=== PATIENT | female | born 1985 | race Caucasian/White ===

== ENCOUNTER 2019-12-25 13:17 | Emergency (ER) | payer OTHER, SELFPAY ==
[2019-12-25 14:03] VITALS: BP 131/84; PULSE 92; RESP 20; TEMP 38.3; O2SAT 96
--- NOTE | 2019-12-25 15:06 | ED.URI ---
HPI - URI/Sore Throat General Chief Complaint: Upper Respiratory Infection Stated Complaint: head and body aches fever cough Time Seen by Provider: 12/25/19 14:59 Source: patient and RN notes reviewed Mode of arrival: ambulatory Limitations: no limitations History of Present Illness HPI Narrative: Patient presents today with a 2-day history of subjective fever, headache, body aches, cough, congestion, rhinorrhea. Denies shortness of breath. No history of asthma or COPD. She has been taking ibuprofen with some relief. She does not smoke or vape. She did not receive a flu vaccine this season. MD elicited complaint: fever, cough and nasal congestion Related Data Home Medications Medication Instructions Recorded Confirmed No Home Medications 12/25/19 12/25/19 Allergies Allergy/AdvReac Type Severity Reaction Status Date / Time poison jennifer extract Allergy Unknown Rash Verified 12/25/19 14:44 Review of Systems Review of Systems: Narrative: CONSTITUTIONAL: Denies chills, or sweats.+Body aches, fever EYES: Denies visual changes, redness, or discharge. ENT: Denies sore throat, or otalgia.+Congestion, rhinorrhea CARDIOVASCULAR: Denies chest pain, palpitations, or edema. RESPIRATORY: Denies dyspnea.+Cough GASTROINTESTINAL: Denies abdominal pain, nausea, vomiting, or diarrhea. GENITOURINARY: Denies dysuria or hematuria. SKIN: Denies rash, itching, or wounds. MUSCULOSKELETAL: Denies back pain, joint pain, or myalgia. NEUROLOGIC: Denies numbness, tingling, or weakness.+Headache PSYCH: Denies depression or anxiety. PMFSH Comments At time of signature, I have reviewed and agree with nursing past medical, surgical, social and family history unless otherwise noted. Please see nursing chart for further information. There is no relevant family history pertinent to the presenting complaint Exam Narrative: Exam Narrative: GENERAL: Mildly ill-appearing, well-nourished, and in no acute distress. HEAD: Normocephalic, atraumatic. EYES: EOMI. No redness or drainage. Conjunctivae normal. ENT: Mucous membranes pink and moist. Nares Congested. No rhinorrhea. TMs normal bilaterally. Throat Mildly erythematous without edema or exudate. Uvula midline. NECK: Normal AROM. Supple. No lymphadenopathy. CHEST: No respiratory distress. Clear to auscultation. HEART: Regular rate and rhythm. No murmur appreciated. Normal peripheral pulses. EXTREMITIES: Normal range of motion. No edema. SKIN: Warm, dry, no rash. NEURO: No focal deficits. Alert and oriented x3. Gait steady. PSYCH: Normal affect. No signs of depression or anxiety. Course Vital Signs Vital signs: Vital Signs Temperature 101.0 F H 12/25/19 14:03 Pulse Rate 92 12/25/19 14:03 Respiratory Rate 20 12/25/19 14:03 Blood Pressure 131/84 12/25/19 14:03 Pulse Oximetry 96 12/25/19 14:03 Temperature 101.0 F H 12/25/19 14:03 Pulse Rate 92 12/25/19 14:03 Respiratory Rate 20 12/25/19 14:03 Blood Pressure 131/84 12/25/19 14:03 Pulse Oximetry 96 12/25/19 14:03 Reviewed. Pt has been instructed to follow up with her PCP regarding her elevated blood pressure today. MDM - URI/Sore Throat Differential Diagnosis Differential diagnosis: Likely upper respiratory infection, viral infection, bronchitis, influenza, pharyngitis and other (Strep throat) Lab Data Attestation: I reviewed the patient's lab results. Labs: Influenza A Screen Negative Reference Range: Negative Influenza B Screen Positive Reference Range: Negative Strep Screen Presumptive Negative *(Reference Range: Negative)* Urine Glucose Negative Reference Range: Negative Urine Bilirubin Negative Reference Range: Negative Urine Ketone Negative Reference Range: Negative Urine Specific [place] 1.020 Reference Range:1.001-1.035
== END 2019-12-25 15:15 | disposition home or self-care (01) ==
PROVIDERS: Emergency Provider Nurse Practitioner
DX: J10.1 Influenza due to other identified influenza virus with other respiratory manifestations (principal)
CPT/HCPCS: 81003; 87081; 87804; 87880; 99213; G0463

== ENCOUNTER 2021-09-29 10:38 | Emergency (ER) | payer OTHER, SELFPAY ==
--- NOTE | 2021-09-29 10:41 | ED.URI ---
HPI - URI/Sore Throat General Chief Complaint: Upper Respiratory Infection Stated Complaint: Jaw, and neck pain, sore throat. Time Seen by Provider: 09/29/21 10:42 Source: patient and RN notes reviewed History of Present Illness HPI Narrative: Patient is a 36-year-old female who presents the urgent care with complaints of bilateral neck and jaw pain and a sore throat that started a couple days ago. Patient states that the sore throat feels like it is swollen and scratchy . Patient denies of any fevers, nausea, vomiting. Denies of any cough or shortness of breath. Denies of any chest pain or upper back pain. Denies of any heart history. Patient has had the Covid vaccine and denies of any strep or Covid exposures. No other acute complaints. No acute distress noted. Patient aware of the plan of care. Some parts of this dictation were generated by voice recognition software and may contain typographical and/or grammatical inaccuracies. Related Data Home Medications Medication Instructions Recorded Confirmed ergocalciferol (vitamin D2) 1,250 mcg PO WEEKLY 09/29/21 09/29/21 Allergies Allergy/AdvReac Type Severity Reaction Status Date / Time poison jennifer extract Allergy Unknown Rash Verified 09/29/21 11:03 Review of Systems Review of Systems: CONSTITUTIONAL: Denies fever, chills, or sweats. EYES: Denies visual changes, redness, or discharge. ENT: Denies rhinorrhea, congestion, otalgia. Reports of sore throat. Reports of jaw neck pain CARDIOVASCULAR: Denies chest pain, palpitations, or edema. RESPIRATORY: Denies cough or dyspnea. GASTROINTESTINAL: Denies abdominal pain, nausea, vomiting, or diarrhea. GENITOURINARY: Denies dysuria or hematuria. SKIN: Denies rash or itching. MUSCULOSKELETAL: Denies back pain, joint pain, or myalgia. NEUROLOGIC: Denies headache, numbness, or weakness. All other systems reviewed are negative, except as documented in HPI. PMFSH Comments At the time of my signature, I reviewed and agree with the nursing past medical, surgical, social, and family history. There is no relevant family history pertinent to the patient complaint. Exam Narrative: GENERAL: This is a well-nourished, well-developed patient, in no apparent distress. HEAD: normocephalic, atraumatic. EYES: PERRL. Sclera clear/white. Vision is grossly intact. EARS: External ears normal, auditory canals clear and without drainage, TMs normal without perforation. Hearing grossly intact. NOSE: External nose normal with no obvious nasal discharge, nares without redness, no rhinorrhea. THROAT: Mucous membranes moist, posterior pharynx clear. Mild to moderate postnasal drainage NECK: Neck supple, non-tender without lymphadenopathy CARDIOVASCULAR: Regular rate and rhythm without murmurs, gallops, or rubs. RESPIRATORY: Clear to auscultation. Breath sounds equal bilaterally. No wheezes, rales, or rhonchi. SKIN: warm, intact with no suspicious lesions or rash, good texture and turgor. NEURO: awake, alert, and oriented to person, place and time. There were no obvious focal neurologic abnormalities. EXTREMITIES: No clubbing, cyanosis, or edema. Course Vital Signs Vital signs: Vital Signs Temperature 99.4 F 09/29/21 10:48 Pulse Rate 66 09/29/21 10:48 Respiratory Rate 20 09/29/21 10:48 Blood Pressure 135/82 09/29/21 10:48 Pulse Oximetry 99 09/29/21 10:48 Temperature 99.4 F 09/29/21 10:48 Pulse Rate 66 09/29/21 10:48 Respiratory Rate 20 09/29/21 10:48 Blood Pressure 135/82 09/29/21 10:48 Pulse Oximetry 99 09/29/21 10:48 Reviewed MDM - URI/Sore Throat MDM Narrative Medical decision making narrative: Reviewed lab results with the patient. She is aware that strep swab was negative. Educated patient on culture and we will call within 72 hours if culture is positive antibiotics necessary. Advised the patient to complete the steroid regimen as prescribed. Use Tylenol/ibuprofen as needed. Symptoms could be relat
[2021-09-29 10:48] VITALS: BP 135/82; PULSE 66; RESP 20; TEMP 37.4; O2SAT 99
== END 2021-09-29 11:15 | disposition home or self-care (01) ==
PROVIDERS: Emergency Provider Nurse Practitioner Family
DX: J02.9 Acute pharyngitis, unspecified (principal)
CPT/HCPCS: 87081; 87880; 99213; G0463

== ENCOUNTER 2022-01-28 16:27 | Emergency (ER) | payer OTHER, SELFPAY ==
--- NOTE | 2022-01-28 16:30 | ED.URI ---
HPI - URI/Sore Throat General Chief Complaint: Upper Respiratory Infection Stated Complaint: Sore Throat Time Seen by Provider: 01/28/22 16:30 Source: patient and RN notes reviewed History of Present Illness HPI Narrative: Patient is a 36-year-old female who presents the urgent care with complaints of sore throat, chills, body aches and runny nose. Patient denies of any ill contacts. Denies of fever, chills, nausea, vomiting. Patient has been taking a daily Claritin for tinnitus. Otherwise has not taken any new medications for symptoms that started last night. No other acute complaints. No acute distress noted. Patient aware of the plan of care. Some parts of this dictation were generated by voice recognition software and may contain typographical and/or grammatical inaccuracies. Related Data Home Medications Medication Instructions Recorded Confirmed pantoprazole 40 mg PO DAILY 01/28/22 01/28/22 Allergies Allergy/AdvReac Type Severity Reaction Status Date / Time poison jennifer extract Allergy Unknown Rash Verified 09/29/21 11:03 Review of Systems Review of Systems: CONSTITUTIONAL: Denies fever,. Reports of chills EYES: Denies visual changes, redness, or discharge. ENT: Reports of rhinorrhea and sore throat. Reports of chronic tinnitus for months CARDIOVASCULAR: Denies chest pain, palpitations, or edema. RESPIRATORY: Denies cough or dyspnea. GASTROINTESTINAL: Denies abdominal pain, nausea, vomiting, or diarrhea. GENITOURINARY: Denies dysuria or hematuria. SKIN: Denies rash or itching. MUSCULOSKELETAL: Denies back pain, joint pain. Reports body aches NEUROLOGIC: Denies headache, numbness, or weakness. All other systems reviewed are negative, except as documented in HPI. PMFSH Comments At the time of my signature, I reviewed and agree with the nursing past medical, surgical, social, and family history. There is no relevant family history pertinent to the patient complaint. Exam Narrative: GENERAL: This is a well-nourished, well-developed patient, in no apparent distress. HEAD: normocephalic, atraumatic. EYES: PERRL. Sclera clear/white. Vision is grossly intact. EARS: External ears normal, auditory canals clear and without drainage, bilateral eustachian tube dysfunction with mild fluid. TMs normal without perforation. Hearing grossly intact. NOSE: External nose normal with no obvious nasal discharge, nares without redness, no rhinorrhea. THROAT: Mucous membranes moist, mild erythema noted posterior pharynx moderate postnasal drainage and exudate noted to the right NECK: Neck supple, non-tender without lymphadenopathy CARDIOVASCULAR: Regular rate and rhythm without murmurs, gallops, or rubs. RESPIRATORY: Clear to auscultation. Breath sounds equal bilaterally. No wheezes, rales, or rhonchi. SKIN: warm, intact with no suspicious lesions or rash, good texture and turgor. NEURO: awake, alert, and oriented to person, place and time. There were no obvious focal neurologic abnormalities. EXTREMITIES: No clubbing, cyanosis, or edema. Course Course Level of Care: Express Care Visit Vital Signs Vital signs: Vital Signs Temperature 100.2 F H 01/28/22 16:32 Pulse Rate 68 01/28/22 16:32 Respiratory Rate 16 01/28/22 16:32 Blood Pressure 137/77 01/28/22 16:32 Pulse Oximetry 100 01/28/22 16:32 Temperature 100.2 F H 01/28/22 16:32 Pulse Rate 68 01/28/22 16:32 Respiratory Rate 16 01/28/22 16:32 Blood Pressure 137/77 01/28/22 16:32 Pulse Oximetry 100 01/28/22 16:32 Reviewed MDM - URI/Sore Throat MDM Narrative Medical decision making narrative: Reviewed lab results with the patient. She is aware that flu and strep swabs are both negative. Educated patient on strep culture we will call within 72 hours if culture is positive and antibiotics are necessary. Advised the patient to complete the oral steroid regimen as prescribed. Be sure to eat and drink with medication. Increase your water intake a
[2022-01-28 16:32] VITALS: BP 137/77; PULSE 68; RESP 16; TEMP 37.9; O2SAT 100
== END 2022-01-28 17:02 | disposition home or self-care (01) ==
PROVIDERS: Emergency Provider Nurse Practitioner Family; PCP Family Medicine
DX: H93.13 Tinnitus, bilateral (principal); H69.83 Other specified disorders of Eustachian tube, bilateral
CPT/HCPCS: 87081; 87804; 87880; 99213; G0463

== ENCOUNTER 2023-07-26 15:01 | Emergency (ER) | payer OTHER, SELFPAY ==
--- NOTE | ~2023-07-26 | CT_ITS ---
EXAMINATION: CT brain wo con DATE: 07/26/2023 18:14 INDICATION: Headache. TECHNIQUE: Computed tomography (CT) of the head was performed without intravenous contrast. The mA wa s adjusted according to patient size. Iterative reconstruction technique was employed. The dose-lengt h product was 832.33 mGy-cm. COMPARISON: None FINDINGS: There is no intracranial hemorrhage, acute infarction, or abnormal intracranial mass lesion . The ventricles are normal in size. There is mild mucosal thickening in the ethmoid sinuses. The orb its are normal. The mastoid air cells are normal. IMPRESSION: 1. Normal brain. Reviewed, dictated and finalized at location E. IMPRESSION: 1. Normal brain.
--- NOTE | ~2023-07-26 | XR_ITS ---
EXAMINATION: XR chest 2V DATE: 07/26/2023 18:19 INDICATION: Dizziness. Shortness of breath. TECHNIQUE: Frontal and lateral views of the chest were obtained. COMPARISON: None. FINDINGS: There is no pneumonia, pleural effusion, or pneumothorax. The heart size is normal. IMPRESSION: 1. No acute cardiopulmonary disease. Reviewed, dictated and finalized at location E.
[2023-07-26 15:32] VITALS: BP 132/84; PULSE 83; RESP 20; TEMP 36.6; O2SAT 98
--- NOTE | 2023-07-26 18:00 | ECG_ITS ---
Measurements Intervals [place] Rate: 70 P: 52 NM: 170 QRS: 47 QRSD: 108 T: 39 QT: 388 QTc: 419 Interpretive Statements SINUS RHYTHM DELAYED PRECORDIAL R/S TRANSITION BORDERLINE ECG NO PREVIOUS ECG AVAILABLE FOR COMPARISON Electronically Signed On 07-27-2023 6:23:46 CDT by Min Tapia D.O.
--- NOTE | 2023-07-26 18:02 | ED.HA ---
HPI - Headache General Chief Complaint: Headache Stated Complaint: dizziness and headache 07/12 Time Seen by Provider: 07/26/23 17:27 Source: patient Mode of arrival: ambulatory Limitations: no limitations History of Present Illness HPI Narrative: This is a 38 year old female that presents to the ER for a headache. Ongoing over the last couple of weeks. Reports the pain is pounding in nature. She has been taking Ibuprofen and Tylenol with some relief. Reports some associated lightheadedness/dizziness. She was started on Augmentin for a possible sinus infection with continued headaches. Denies fever, vision changes, vomiting, numbness or weakness. Related Data Home Medications Medication Instructions Recorded Confirmed pantoprazole 40 mg tablet,delayed 40 mg PO DAILY 01/28/22 01/28/22 release amoxicillin 875 mg-potassium tablet 07/26/23 clavulanate 125 mg tablet ergocalciferol (vitamin D2) 1,250 07/26/23 07/26/23 mcg (50,000 unit) capsule lisinopril 10 mg tablet mg 07/26/23 Allergies Allergy/AdvReac Type Severity Reaction Status Date / Time poison jennifer extract Allergy Unknown Rash Verified 07/26/23 18:52 Review of Systems Review of Systems: CONSTITUTIONAL: Denies fever EYES: Denies visual changes CARDIOVASCULAR: Denies chest pain, palpitations RESPIRATORY: Denies dyspnea. GASTROINTESTINAL: Denies vomiting NEUROLOGIC: Reports headache. Denies numbness, or weakness. All systems reviewed & are unremarkable except as noted in HPI and below PMFSH Past Medical History Medical History (Updated 07/26/23 @ 19:52 by Angelina Carrizales PA-C) No active medical problems Surgical History Surgical History (Updated 07/26/23 @ 18:07 by Angelina Carrizales PA-C) History of cholecystectomy Social History Social History (Updated 07/26/23 @ 18:07 by Angelina Carrizales PA-C) Substance use: never Exam Narrative: GENERAL: Well-appearing, well-nourished, and in no acute distress. HEAD: Normocephalic, atraumatic. EYES: PERRLA and EOMI. ENT: Nares clear, no rhinorrhea or epistaxis. Mucous membranes moist. Oropharynx without tonsillar hypertrophy exudate or other lesions. Bilateral TMs pearly pat non-bulging NECK: Supple. No adenopathy or masses. Normal ROM CHEST: Clear to auscultation. No respiratory distress. No wheezes rales or rhonchi HEART: Regular rate and rhythm. No murmur heard. Normal peripheral pulses. ABDOMEN: Soft, nontender, nondistended, normal active bowel sounds. EXTREMITIES: Normal range of motion. No edema. Strength equal in bilateral upper and lower extremities (5/5) SKIN: Warm, dry, no rash. NEURO: No focal deficits. Alert and oriented x3. Cranial nerves II through XII grossly intact. Normal gait PSYCH: Normal mood and affect Course Course Emergency Course: Patient was updated on work-up. Agrees with plan of care. Reports relief with IV fluids and Toradol Vital Signs Vital signs: Vital Signs Temperature 97.8 F 07/26/23 15:32 Pulse Rate 83 07/26/23 15:32 Respiratory Rate 20 07/26/23 15:32 Blood Pressure 132/84 07/26/23 15:32 Pulse Oximetry 98 07/26/23 15:32 Oxygen Delivery Room Air 07/26/23 15:32 Temperature 98.2 F 07/26/23 19:02 Pulse Rate 67 07/26/23 19:36 Respiratory Rate 16 07/26/23 19:36 Blood Pressure 116/69 07/26/23 19:36 Pulse Oximetry 97 07/26/23 19:36 Oxygen Delivery Room Air 07/26/23 15:32 MDM - Headache MDM Narrative Medical decision making narrative: Patient presents to the emergency department for a headache that has been intermittent over the last couple of weeks. Reporting some associated dizziness/lightheadedness. She is afebrile and nontoxic-appearing. Her vitals are stable. CBC with mild leukocytosis to 11.3. Patient has recently been on a steroid. Metabolic panel without concerning findings. UA without evidence of infection. test is negative. Chest x-ray without acute cardiopulmonary normality.
[2023-07-26 18:22] LABS: Basophils Percent Auto 0.2 % (0.2-1.2); Eosinophils Absolute Auto 0.1 K/mm3 (0-0.3); Hematocrit 41.2 % (37.0-47.0); Immature Granulocyte Absolute 0.02 K/mm3 (0.00-0.031); Immature Granulocyte Percent A 0.2 % (0-0.5); Lymphocytes Absolute Auto 3.49 K/mm3 (0.9-3.2); Lymphocytes Percent Auto 30.9 % (18.3-44.2); Mean Corpuscular Hemoglobin 31.3 pg (26-34); Monocytes Absolute Auto 0.5 K/mm3 (0.1-0.6); Neutrophils Absolute Auto 7.2 K/mm3 (1.3-6.7); Neutrophils Percent Auto 63.7 % (45.5-73.1); Platelet Count Result 330 k/mm3 (150-375); Red Blood Count 4.48 M/mm3 (4.2-5.4); Red Cell Distribution Width 13.5 % (11.5-14.5); White Blood Count 11.3 K/mm3 (4.5-10.0)
[2023-07-26 18:31] LABS: Appearance Urine Clear (Clear); Bilirubin Urine Negative (Negative); Blood Urine Negative (Negative); Color Urine Yellow (Yellow); Glucose Urine UA Negative (Negative); Ketones Urine Negative (Negative); Leukocyte Esterase Ur Negative LEU/UL (Negative); Nitrate Urine Negative (Negative); Protein Urine Negative (Negative); Specific Grav Ur 1.022 (1.001-1.035); Urobilinogen Urine 0.2 mg/dL (<2.0); pH Urine 6.5 (5.0-9.0)
[2023-07-26 18:44] LABS: Alanine Aminotransferase 35 U/L (6-35); Alkaline Phosphatase 48 U/L (38-126); Anion Gap 8 mmol/L (8-16); Aspartate Amino Transferase 35 U/L (14-36); Bilirubin,Total 0.4 mg/dL (0.2-1.3); Blood Urea Nitrogen 18 mg/dL (7-17); Carbon Dioxide 25 mmol/L (22-30); Chloride 102 mmol/L (98-107); Estimated CRCL calculation 140 ml/min; Estimated Glomerular Filt Rate > 60; Glucose 95 mg/dL (65-110); Potassium 4.2 mmol/L (3.4-5.0); Sodium 135 mmol/L (137-145)
[2023-07-26 18:51] LABS: Add Urine Microscopic? NO
[2023-07-26] MEDS: SODIUM CHLORIDE 0.9% IV 1,000 ML 999 ML IV CONT (18:54)
[2023-07-26] MEDS: KETOROLAC 15 MG/ML VIAL (*BKC) IV PUSH (18:55)
[2023-07-26 19:02] VITALS: BP 123/82; PULSE 65; RESP 14; TEMP 36.8; O2SAT 100
[2023-07-26 19:33] LABS: Pregnancy On Board Control Positive; Urine Pregnancy Test Negative
[2023-07-26 19:36] VITALS: BP 116/69; PULSE 67; RESP 16; O2SAT 97
[2023-07-26 20:27] VITALS: BP 130/72; PULSE 68; RESP 18; O2SAT 99
== END 2023-07-26 20:28 | disposition home or self-care (01) ==
PROVIDERS: Emergency Provider Physician Assistant; PCP Family Medicine
DX: R51.9 Headache, unspecified (principal); Z90.49 Acquired absence of other specified parts of digestive tract
CPT/HCPCS: 36415; 70450; 71046; 80053; 81003; 81025; 85025; 93005; 96361; 96374; 99284; J1885; J7030

== ENCOUNTER 2023-07-28 13:35 | Emergency (ER) | payer OTHER, SELFPAY ==
[2023-07-28] VITALS (16 sets, daily range): BP systolic 69–136; BP diastolic 56–95; PULSE 53–83; RESP 13–21; TEMP 36.6; O2SAT 96–99
--- NOTE | 2023-07-28 13:53 | ECG_ITS ---
Measurements Intervals [place] Rate: 64 P: 43 FL: 151 QRS: 39 QRSD: 99 T: 42 QT: 396 QTc: 410 Interpretive Statements SINUS RHYTHM NORMAL ECG COMPARED TO ECG 07/26/2023 18:44:22 NO SIGNIFICANT CHANGES Electronically Signed On 07-28-2023 13:58:09 CDT by Min Tapia D.O.
--- NOTE | 2023-07-28 14:39 | ED.GENADULT ---
HPI - General Adult General Chief complaint: Headache Stated complaint: htn/pearce Time Seen by Provider: 07/28/23 13:50 History of Present Illness HPI narrative: Yanira Carroll is a 38 y/o female who presents with reports of having this ongoing headache since July 12, she states that she also recently was diagnosed with htn and she started her medication for htn on Jul 20. She has been in and out of ERs for this headache and she states she typically recieves the migraine cocktail and it makes the headache go away but then it returns the following day, she states she has had labs/ CTs without any evidence of anything being wrong. She states that her headache has been most of the day today she took 200mg of Ibuprofen this morning and now her headache is somewhat mild not severe but constant to her head and describes it as a tight feeling to her head. She also states that she had an episode of sweating earlier today and she didn't know where that came from. She also adds that she has a hx of hld and is getting a diagnostic cardiac cath at the end of the month - she says that she was found to have some thickening to her heart on an echo back in february when she had an infection and was admitted. SHe states she had a little bit of chest pain earlier but none right now. Denies shortnes of breath/ abdominal pain/ nausea/vomiting. She also adds that she has been on augmentin since July 20 for sinusitis Related Data Home Medications Medication Instructions Recorded Confirmed pantoprazole 40 mg tablet,delayed 40 mg PO DAILY 01/28/22 01/28/22 release amoxicillin 875 mg-potassium tablet 07/26/23 clavulanate 125 mg tablet ergocalciferol (vitamin D2) 1,250 07/26/23 07/26/23 mcg (50,000 unit) capsule lisinopril 10 mg tablet mg 07/26/23 Allergies Allergy/AdvReac Type Severity Reaction Status Date / Time poison jennifer extract Allergy Unknown Rash Verified 07/26/23 18:52 Review of Systems Review of Systems: CONSTITUTIONAL: Denies fever, chills, or sweats. EYES: Denies visual changes, redness, or discharge. ENT: Denies rhinorrhea, congestion, sore throat, or otalgia. CARDIOVASCULAR: Denies chest pain, palpitations, or edema. RESPIRATORY: Denies cough or dyspnea. GASTROINTESTINAL: Denies abdominal pain, nausea, vomiting, or diarrhea. GENITOURINARY: Denies dysuria or hematuria. SKIN: Denies rash or itching. MUSCULOSKELETAL: Denies back pain, joint pain, or myalgia. NEUROLOGIC: reports mild tension/tight headache, Denies numbness, dizziness, or weakness. PSYCHIATRIC: Denies anxiety or depression. [facility] Past Medical History Medical History No active medical problems Surgical History Surgical History History of cholecystectomy Social History Social History Substance use: never Exam Narrative: GENERAL: Well-appearing, well-nourished, and in no acute distress. HEAD: Normocephalic, atraumatic. EYES: PERRLA and EOMI no nystagmus noted ENT: Nares clear, no rhinorrhea or epistaxis. Mucous membranes moist. Oropharynx without tonsillar hypertrophy exudate or other lesions. Bilateral TMs pearly pat nonbulging NECK: Supple. No adenopathy or masses. No carotid bruits or JVD CHEST: Clear to auscultation. No respiratory distress. No wheezes rales or rhonchi HEART: Regular rate and rhythm. No murmur heard. Normal peripheral pulses. ABDOMEN: Soft, nontender, nondistended, normal active bowel sounds. EXTREMITIES: Normal range of motion. No edema. SKIN: Warm, dry, no rash. NEURO: No focal deficits. Alert and oriented x3. PSYCH: Normal mood and affect. Course Vital Signs Vital signs: Vital Signs Temperature 36.6 C 07/28/23 13:36 Pulse Rate 65 07/28/23 13:36 Respiratory Rate 16 07/28/23 13:36 Blood Pressure 136/95 H 07/28/23 13:36 Pulse
[2023-07-28] MEDS: PROCHLORPERAZINE EDISYLATE 10 MG/2 ML VIAL IV PUSH (14:51)
[2023-07-28] MEDS: KETOROLAC 30 MG/ML VIAL (*BKC) IV PUSH (14:51)
[2023-07-28] MEDS: SODIUM CHLORIDE 0.9% IV 1,000 ML 999 ML IV CONT (14:52)
[2023-07-28] MEDS: diphenhydrAMINE HCl INJ 50 MG/ML VIAL 25 MG IV PUSH (14:52)
[2023-07-28 15:15] LABS: Basophils Percent Auto 0.2 % (0.2-1.2); Eosinophils Absolute Auto 0.1 K/mm3 (0-0.3); Eosinophils Percent Auto 0.4 % (0-4.4); Hematocrit 37.3 % (37.0-47.0); Hemoglobin 12.1 g/dL (12.0-15.0); Immature Granulocyte Absolute 0.04 K/mm3 (0.00-0.031); Immature Granulocyte Percent A 0.3 % (0-0.5); Lymphocytes Absolute Auto 2.29 K/mm3 (0.9-3.2); Lymphocytes Percent Auto 19.7 % (18.3-44.2); Mean Corpuscular HGB Conc 32.4 g/dl (32-36); Mean Corpuscular Volume 92.6 fl (80-100); Mean Platelet Volume 9.3 fl (7.4-10.4); Monocytes Absolute Auto 0.5 K/mm3 (0.1-0.6); Monocytes Percent Auto 4.4 % (2.6-8.5); Neutrophils Absolute Auto 8.7 K/mm3 (1.3-6.7); Platelet Count Result 244 k/mm3 (150-375); Red Blood Count 4.03 M/mm3 (4.2-5.4); Red Cell Distribution Width 13.3 % (11.5-14.5); White Blood Count 11.7 K/mm3 (4.5-10.0)
[2023-07-28 15:27] LABS: Anion Gap 4 mmol/L (8-16); Blood Urea Nitrogen 12 mg/dL (7-17); Calcium 8.5 mg/dL (8.4-10.2); Carbon Dioxide 26 mmol/L (22-30); Chloride 103 mmol/L (98-107); Estimated Glomerular Filt Rate > 60; Glucose 89 mg/dL (65-110); Potassium 3.7 mmol/L (3.4-5.0); Sodium 133 mmol/L (137-145)
[2023-07-28 15:38] LABS: Troponin I < 0.012 ng/mL (0.000-0.034)
== END 2023-07-28 18:08 | disposition home or self-care (01) ==
PROVIDERS: Emergency Provider Nurse Practitioner Family
DX: G44.201 Tension-type headache, unspecified, intractable (principal); I10 Essential (primary) hypertension; Z90.49 Acquired absence of other specified parts of digestive tract
CPT/HCPCS: 36415; 80048; 84484; 85025; 93005; 96361; 96374; 96375; 99284; J0780; J1100; J1200; J1885; J7030

== ENCOUNTER 2023-11-06 11:05 | Emergency (ER) | payer OTHER, SELFPAY ==
[2023-11-06 11:15] VITALS: BP 124/76; PULSE 66; RESP 16; TEMP 36.3; O2SAT 97
--- NOTE | 2023-11-06 11:27 | ED.GENADULT ---
HPI - General Adult General Chief complaint: Upper Respiratory Infection Stated complaint: Headache/Fever/Diarrhea/Cough Source: patient, RN notes reviewed and old records reviewed Mode of arrival: ambulatory Limitations: no limitations History of Present Illness HPI narrative: 38-year-old female presents with complaint of cough, congestion, nausea, fatigue, myalgias that started 1 week ago. Patient taking [id number]-yhnxigf medications with no relief. Patient states was exposed to COVID over [place]. Patient denies chest pain, weakness, dizziness, shortness of breath MD complaint: cough and congestion Onset (ago): week(s) (1) Related Data Home Medications Medication Instructions Recorded Confirmed ergocalciferol (vitamin D2) 1,250 1,250 mcg PO WEEKLY 07/26/23 11/06/23 mcg (50,000 unit) capsule lisinopril 10 mg tablet 10 mg PO DAILY 07/26/23 11/06/23 atorvastatin 80 mg tablet 80 mg PO DAILY 11/06/23 11/06/23 dulaglutide 1.5 mg/0.5 mL 1.5 mg subcut WEEKLY 11/06/23 11/06/23 subcutaneous pen injector (Trulicity) Allergies Allergy/AdvReac Type Severity Reaction Status Date / Time poison jennifer extract Allergy Unknown Rash Verified 11/06/23 11:27 Review of Systems Constitutional: Constitutional: Reports no additional constitutional complaints, Reports body ache(s), Denies chills, Reports fatigue, Denies fever(s) and Denies headache(s) Eyes: Eyes: Reports no additional eye complaints and Denies blurry vision ENT: Reports system reviewed and no additional complaints, except as documented, Denies vertigo, Denies dizziness, Denies ear discharge, Denies otalgia, Denies facial pain, Denies headache(s), Reports nasal congestion, Denies nasal discharge, Denies sinus pain, Reports sinus pressure and Denies sore throat Cardiovascular: Cardiovascular: Reports no additional cardiovascular complaints, Denies chest pain, Denies chest pain at rest, Denies rapid heart rate and Denies dyspnea Respiratory: Respiratory: Reports no additional respiratory complaints, Reports chest congestion, Reports cough, Denies pain on inspiration, Denies pain with cough and Denies dyspnea Gastrointestinal: Gastrointestinal: Denies abdominal pain, Denies diarrhea, Denies nausea and Denies vomiting Integumentary/Breasts: Skin/Breast: Denies rash Neurologic: Reports system reviewed and no additional complaints, except as documented, Denies vertigo, Denies dizziness and Denies headache(s) Endocrine: Endocrine: Denies fatigue PMFSH Past Medical History Medical History No active medical problems Surgical History Surgical History History of cholecystectomy Social History Social History Substance use: never Comments At the time of my signature, I reviewed and agree with the nursing past medical, surgical, social, and family history. There is no relevant family history pertinent to the patient complaint. Exam Const: General: cooperative, healthy appearing, no acute distress and well nourished Nutritional Appearance: well nourished Orientation/consciousness: patient oriented x3 Limitations: no limitations HENMT: Head: normal to inspection and normocephalic Ears: external ears normal, TM's normal bilaterally, mastoids normal and Abnormal EAC present Face/Nose/Sinus: normal facial exam Face and sinus: normal facial exam Mouth: Yes Normal oral and palatal mucosa present, Yes oropharynx normal and Yes moist mucous membranes Throat: tonsils normal, uvula midline and no uvular edema Eyes: General: appearance normal, both eyes and all related structures Sclera: sclerae normal Pupils: Equal, round and reactive pupils present Resp: Effort & Inspection: normal respiratory effort, able to speak in complete sentences, no audible wheezes, no cough, no respiratory distress and no retra
== END 2023-11-06 11:45 | disposition home or self-care (01) ==
PROVIDERS: Emergency Provider Registered Nurse
DX: J06.9 Acute upper respiratory infection, unspecified (principal); Z20.822 Contact with and (suspected) exposure to COVID-19
CPT/HCPCS: 87426; 87804; 99213; C9803; G0463

== ENCOUNTER 2024-01-07 20:19 | Emergency (ER) | payer OTHER, SELFPAY ==
[2024-01-07 20:58] VITALS: BP 139/97; PULSE 76; RESP 18; TEMP 36.9; O2SAT 100
[2024-01-07 21:16] LABS: Appearance Urine Clear (Clear); Bilirubin Urine Negative (Negative); Blood Urine Negative (Negative); Color Urine Yellow (Yellow); Glucose Urine UA Negative (Negative); Ketones Urine Negative (Negative); Leukocyte Esterase Ur Negative LEU/UL (Negative); Nitrate Urine Negative (Negative); Protein Urine Negative (Negative); Specific Grav Ur 1.006 (1.001-1.035); Urobilinogen Urine 0.2 mg/dL (<2.0)
[2024-01-07 21:19] LABS: Basophils Percent Auto 0.4 % (0.2-1.2); Eosinophils Absolute Auto 0.1 K/mm3 (0-0.3); Eosinophils Percent Auto 2.1 % (0-4.4); Hematocrit 41.5 % (37.0-47.0); Hemoglobin 13.3 g/dL (12.0-15.0); Immature Granulocyte Absolute 0.02 K/mm3 (0.00-0.031); Immature Granulocyte Percent A 0.3 % (0-0.5); Lymphocytes Absolute Auto 2.48 K/mm3 (0.9-3.2); Lymphocytes Percent Auto 36.8 % (18.3-44.2); Mean Corpuscular Hemoglobin 29.2 pg (26-34); Mean Platelet Volume 9.3 fl (7.4-10.4); Monocytes Absolute Auto 0.3 K/mm3 (0.1-0.6); Neutrophils Absolute Auto 3.7 K/mm3 (1.3-6.7); Neutrophils Percent Auto 55.4 % (45.5-73.1); Platelet Count Result 333 k/mm3 (150-375); Red Blood Count 4.56 M/mm3 (4.2-5.4); Red Cell Distribution Width 13.5 % (11.5-14.5); White Blood Count 6.7 K/mm3 (4.5-10.0)
[2024-01-07 21:22] LABS: Add Urine Microscopic? NO
[2024-01-07 21:25] LABS: Alanine Aminotransferase 23 U/L (6-35); Albumin Level 4.5 g/dL (3.5-5.1); Alkaline Phosphatase 66 U/L (38-126); Anion Gap 9 mmol/L (8-16); Aspartate Amino Transferase 25 U/L (14-36); Bilirubin,Total 0.4 mg/dL (0.2-1.3); Blood Urea Nitrogen 12 mg/dL (7-17); Calcium 9.8 mg/dL (8.4-10.2); Carbon Dioxide 23 mmol/L (22-30); Chloride 104 mmol/L (98-107); Estimated CRCL calculation 167 ml/min; Estimated Glomerular Filt Rate > 60; Glucose 101 mg/dL (65-110); Lipase 98 U/L (23-300); Sodium 136 mmol/L (137-145)
[2024-01-07 21:58] LABS: Influenza A QL RT-PCR Negative (Negative); Influenza B QL RT-PCR Negative (Negative); RSV RNA, RT-PCR Negative (Negative); SARS-CoV-2 RNA PCR Negative (Negative)
[2024-01-07 23:04] VITALS: BP 132/86; PULSE 62; RESP 16; TEMP 36.6; O2SAT 99
--- NOTE | 2024-01-07 23:37 | ED.GENADULT ---
HPI - General Adult General Chief complaint: Unspecified Stated complaint: RLE calf pain/RUQ pain/swollen glands/N/V Time Seen by Provider: 01/07/24 22:54 Source: patient Mode of arrival: ambulatory Limitations: no limitations History of Present Illness HPI narrative: This is a 38-year-old female who presents to the ED for chief complaint of several weeks of abdominal pain that worsened tonight. She also reports diffuse swollen lymph nodes that are tender to touch. Endorses chills. She states that with this pain everywhere and feeling more fatigued she is concerned that she may have stage IV cancer. Denies any cancer history. She is also complaining of some pain behind the knee and thinks that she may have a blood clot. Denies blood clot history. She states that she has been if ?feeling off? for the past 2 years and states ?maybe I need to see the [facility] Denies fevers, nausea, vomiting, chest pain, shortness of breath, cough. Related Data Home Medications Medication Instructions Recorded Confirmed ergocalciferol (vitamin D2) 1,250 1,250 mcg PO WEEKLY 07/26/23 11/06/23 mcg (50,000 unit) capsule lisinopril 10 mg tablet 10 mg PO DAILY 07/26/23 11/06/23 atorvastatin 80 mg tablet 80 mg PO DAILY 11/06/23 11/06/23 dulaglutide 1.5 mg/0.5 mL 1.5 mg subcut WEEKLY 11/06/23 11/06/23 subcutaneous pen injector (Trulicity) Allergies Allergy/AdvReac Type Severity Reaction Status Date / Time poison jennifer extract Allergy Unknown Rash Verified 11/06/23 11:27 Review of Systems Review of Systems: All systems as dictated in [facility] Past Medical History Medical History No active medical problems Surgical History Surgical History History of cholecystectomy Social History Social History Substance use: never Exam Narrative: GENERAL: Well-appearing, well-nourished, and in no acute distress. HEAD: Normocephalic, atraumatic. EYES: PERRLA and EOMI. ENT: Nares clear, no rhinorrhea or epistaxis. Mucous membranes moist. Oropharynx without tonsillar hypertrophy exudate or other lesions. NECK: Supple. No adenopathy or masses. CHEST: No respiratory distress. Clear to auscultation. No wheezes rales or rhonchi HEART: Regular rate and rhythm. No murmur heard. Normal peripheral pulses. ABDOMEN: Soft, nontender, nondistended, normal active bowel sounds. MSK: Normal range of motion. No edema. No warmth or erythema to the lower legs. SKIN: Warm, dry, no rash. No areas of all lymph node swelling palpated. NEURO: Alert and oriented x3. No focal deficits. PSYCH: Normal mood and affect. Course Vital Signs Vital signs: Vital Signs Temperature 98.5 F 01/07/24 20:58 Pulse Rate 76 01/07/24 20:58 Respiratory Rate 18 01/07/24 20:58 Blood Pressure 139/97 H 01/07/24 20:58 Pulse Oximetry 100 01/07/24 20:58 Temperature 97.8 F 01/07/24 23:04 Pulse Rate 62 01/07/24 23:04 Respiratory Rate 16 01/07/24 23:04 Blood Pressure 132/86 01/07/24 23:04 Pulse Oximetry 99 01/07/24 23:04 Medical Decision Making [facility] Narrative Medical decision making narrative: This is a 38-year-old female who presents to the ED with chief complaint of generalized pain. She is concerned that she has diffuse swollen lymph nodes. She has chronic abdominal pain and is concern for possible stage IV cancer despite new multiple negative workups and CT scans at other facilities. Vitals are normal. Exam is benign. No lymph nodes detected on exam. No abdominal tenderness. No swelling or signs of DVT. Lab work shows a normal CBC, normal CMP, normal urine and viral swabs. Symptoms consistent with chronic pain. Pt will be discharged in stable condition. Return precautions given and supportive measures discussed. Pt is understanding and agreeable
== END 2024-01-07 23:55 | disposition home or self-care (01) ==
PROVIDERS: Emergency Medicine; Emergency Provider Physician Assistant
DX: R10.84 Generalized abdominal pain (principal); Z20.822 Contact with and (suspected) exposure to COVID-19
CPT/HCPCS: 36415; 80053; 81003; 81025; 83690; 85025; 87637; 99283

== ENCOUNTER 2024-08-09 16:16 | Emergency (ER) | payer OTHER, MEDICAID, SELFPAY ==
[2024-08-09 16:23] VITALS: BP 118/73; PULSE 56; RESP 16; TEMP 37.2; O2SAT 100
--- NOTE | 2024-08-09 16:32 | ED.URI ---
HPI - URI/Sore Throat General Chief Complaint: Upper Respiratory Infection Stated Complaint: throat/headache/nose Time Seen by Provider: 08/09/24 16:32 Source: patient Mode of arrival: ambulatory Limitations: no limitations History of Present Illness HPI Narrative: 39-year-old female presents with complaint of nasal congestion, runny nose, sore throat, sinus headache for 2-3 days. Afebrile. Not taking any [id number] medications to treat her symptoms. Denies cough. All systems reviewed and negative except as noted above. Related Data Home Medications Medication Instructions Recorded Confirmed ergocalciferol (vitamin D2) 1,250 1,250 mcg PO WEEKLY 07/26/23 11/06/23 mcg (50,000 unit) capsule lisinopril 10 mg tablet 10 mg PO DAILY 07/26/23 11/06/23 atorvastatin 80 mg tablet 80 mg PO DAILY 11/06/23 11/06/23 aspirin 81 mg capsule mg 08/09/24 Allergies Allergy/AdvReac Type Severity Reaction Status Date / Time poison jennifer extract Allergy Unknown Rash Verified 08/09/24 16:47 Review of Systems Review of Systems: CONSTITUTIONAL: Denies fever, chills, or sweats. EYES: Denies visual changes, redness, or discharge. ENT: Reports rhinorrhea, congestion, sore throat. Denies otalgia. CARDIOVASCULAR: Denies chest pain, palpitations, or edema. RESPIRATORY: Denies cough or dyspnea. GASTROINTESTINAL: Denies abdominal pain, nausea, vomiting, or diarrhea. GENITOURINARY: Denies dysuria or hematuria. SKIN: Denies rash or itching. MUSCULOSKELETAL: Denies back pain, joint pain, or myalgia. NEUROLOGIC: Denies headache, numbness, or weakness. PSYCHIATRIC: Denies anxiety or depression. All other systems reviewed are negative, except as documented in HPI. [facility] Past Medical History Medical History No active medical problems Surgical History Surgical History History of cholecystectomy Social History Social History Substance use: never Comments At time of signature, agree with nursing past medical, surgical, social and family history. There is no relevant family history pertinent to the presenting complaint. Exam Narrative: GENERAL: This is a well-nourished, well-developed patient, in no apparent distress. HEAD: normocephalic, atraumatic. EYES: PERRL. Sclera clear/white. Vision is grossly intact. EARS: External ears normal, auditory canals clear and without drainage, TMs normal without perforation. Hearing grossly intact. NOSE: External nose normal with Clear nasal drainage, mild congestion, erythema to bilateral nares THROAT: Mucous membranes moist, clear postnasal drainage. Mild erythema. No swelling or exudates. NECK: Neck supple, non-tender without lymphadenopathy, masses or thyromegaly. CARDIOVASCULAR: Regular rate and rhythm without murmurs, gallops, or rubs. RESPIRATORY: Clear to auscultation. Breath sounds equal bilaterally. No wheezes, rales, or rhonchi. SKIN: warm, Dry, intact with no suspicious lesions or rash, good texture and turgor. NEURO: awake, alert, and oriented to person, place and time. There were no obvious focal neurologic abnormalities. EXTREMITIES: No joint tenderness, effusion, or edema noted. Course Course Level of Care: Express Care Visit Vital Signs Vital signs: Vital Signs Temperature 37.2 C 08/09/24 16:23 Pulse Rate 56 L 08/09/24 16:23 Respiratory Rate 16 08/09/24 16:23 Blood Pressure 118/73 08/09/24 16:23 Pulse Oximetry 100 08/09/24 16:23 Oxygen Delivery Room Air 08/09/24 16:23 Temperature 37.2 C 08/09/24 16:23 Pulse Rate 56 L 08/09/24 16:23 Respiratory Rate 16 08/09/24 16:23 Blood Pressure 118/73 08/09/24 16:23 Pulse Oximetry 100 08/09/24 16:23 Oxygen Delivery Room Air 08/09/24 16:23 reviewed MDM - URI/Sore Throat MDM Narrative Medical decis
[2024-08-09 17:05] LABS: EDCOVIDSCREEN Negative (Negative)
[2024-08-09 17:06] LABS: EDINFLUASCREEN Negative (Negative); EDINFLUBSCREEN Negative (Negative); EDSTREPNEGPOS1 Negative (Negative)
== END 2024-08-09 17:06 | disposition home or self-care (01) ==
PROVIDERS: Nurse Practitioner Family; Emergency Provider Nurse Practitioner Family; PCP Physician Assistant
DX: J01.00 Acute maxillary sinusitis, unspecified (principal); Z20.822 Contact with and (suspected) exposure to COVID-19; Z79.82 Long term (current) use of aspirin
CPT/HCPCS: 87081; 87426; 87804; 87880; 99213; G0463

== ENCOUNTER 2024-09-26 09:32 | Emergency (ER) | payer OTHER, MEDICAID, SELFPAY ==
--- NOTE | 2024-09-26 09:40 | ED_ITS ---
HPI - URI/Sore Throat General Chief Complaint: Skin/Abscess/Foreign Body Stated Complaint: Foreign Body Right Foot Time Seen by Provider: 09/26/24 09:40 Source: patient, RN notes reviewed and old records reviewed Mode of arrival: ambulatory Limitations: no limitations History of Present Illness HPI Narrative: 39-year-old female to Express Care for complaint of right plantar heel pain. Patient states that 1 month ago she stepped on some broken glass. Patient thought she had removed it all, but it reports consistent pain with ambulating. Patient believes there may still be a piece of glass in her right heel. Patient denies surrounding swelling, redness, warmth, drainage. Patient resting comfortably in exam room in no acute distress. Related Data Home Medications Medication Instructions Recorded Confirmed ergocalciferol (vitamin D2) 1,250 1,250 mcg PO WEEKLY 07/26/23 11/06/23 mcg (50,000 unit) capsule lisinopril 10 mg tablet 10 mg PO DAILY 07/26/23 11/06/23 atorvastatin 80 mg tablet 80 mg PO DAILY 11/06/23 11/06/23 aspirin 81 mg capsule mg 08/09/24 Allergies Allergy/AdvReac Type Severity Reaction Status Date / Time poison jennifer extract Allergy Unknown Rash Verified 08/09/24 16:47 Review of Systems Review of Systems: All systems reviewed & are unremarkable except as noted in HPI and below Constitutional: Constitutional: Reports no additional constitutional complaints Eyes: Eyes: Reports no additional eye complaints ENT: Reports system reviewed and no additional complaints, except as documented Cardiovascular: Cardiovascular: Reports no additional cardiovascular complaints, Denies chest pain and Denies dyspnea Respiratory: Respiratory: Reports no additional respiratory complaints, Denies cough and Denies dyspnea Musculoskeletal: Musculoskeletal: Reports as per HPI and Reports other (right plantar heel pain) Neurologic: Reports system reviewed and no additional complaints, except as documented Psychiatric: Psychiatric: Reports no additional psychiatric complaints PMF Past Medical History Medical History No active medical problems Surgical History Surgical History History of cholecystectomy Social History Social History Substance use: never Comments At the time of my signature, I reviewed and agree with the nursing past medical, surgical, social, and family history. There is no relevant family history pertinent to the patient complaint. Exam Const: General: cooperative, no acute distress, well developed, alert, uncomfortable, well groomed and well nourished Nutritional Appearance: well nourished Orientation/consciousness: patient oriented x3 Limitations: no limitations HENMT: Head: normal to inspection Ears: external ears normal Face/Nose/Sinus: Normal external nose present, Normal nares present, normal facial exam, No erythema and No edema Face and sinus: normal facial exam, no erythema and no edema Mouth: Yes Normal oral and palatal mucosa present Eyes: General: appearance normal, both eyes and all related structures Neck: Neck: normal visual inspection, full ROM and no meningeal signs Chest: Chest palpation & inspection: normal inspection of the chest Resp: Effort & Inspection: normal respiratory effort and able to speak in complete sentences Cardio: Jugular venous distension: no JVD Rate: regular rate Rhythm: regular rhythm Back/Spine/Pelvis: Cervical Spine: cervical ROM normal Skin: General skin exam: normal color, turgor normal and erythema ( Right plantar heel) Other: On exam, .5cm x .5cm area of erythema and tenderness to right plantar heel. Neuro: General: patient oriented x3, gait normal, moves all extremities and no meningeal signs Speech: normal speech Gait exam (Neuro): Normal gait present Extrem: General: normal to inspection, full ROM and capillary refill normal Psych: Appearance: grossly normal and well kempt Course Course Emergency Course: Some parts of this dictation were generated by voice recognition software and may contain typographical and/or grammatical inaccuracies. Level of Care: Express Care Visit Vital Signs Vital signs: Vital Signs Temperature 36.9 C 09/26/24 09:42 Pulse Rate 61 09/26/24 09:42 Respiratory Rate 19 09/26/24 09:42 Blood Pressure 134/73 09/26/24 09:42 Pulse Oximetry 100 09/26/24 09:42 Oxygen Delivery Room Air 09/26/24 09:42 Temperature 36.9 C 09/26/24 09:42 Pulse Rate 61 09/26/24 09:42 Respiratory Rate 19 09/26/24 09:42 Blood Pressure 134/73 09/26/24 09:42 Pulse Oximetry 100 09/26/24 09:42 Oxygen Delivery Room Air 09/26/24 09:42 reviewed Procedures Foreign Body Removal Foreign Body #1: Foreign Body Removal Date: 09/26/24 Site: right and foot Description of foreign body: other ( Glass) Sedation/Analgesia: none Technique: manual removal Confirmed by:: direct visualization Complications: pain Post-procedure exam: awake, alert and normal HR MDM - URI/Sore Throat MDM Narrative Medical decision making narrative: 39-year-old female to Express Care for complaint of right plantar heel pain. P atient states that 1 month ago she stepped on some broken glass. Patient thought she had removed it all, but it reports consistent pain with ambulating. Patient believes there may still be a piece of glass in her right heel. Patient denies surrounding swelling, redness, warmth, drainage. Patient resting comfortably in exam room in no acute distress. On exam, .5cm x .5cm area of erythema and tenderness to right plantar heel. Manual removal successful on 1st attempt. Small splinter of glass removed and directly visualized and shown to patient. Patient tolerated well with mild discomfort. No bleeding after removal. Area cleaned and bacitracin and bandage applied. Patient is sitting comfortably in exam room nontoxic in appearance. Patient appropriate for outpatient treatment and follow-up. Discharge instructions reviewed with patient, as well as provided in writing per nursing staff. The instructions also include specific and strict return/GO TO THE ER as well as f/u information. All questions have been answered, and the patient deny any further questions with discharge and discharge plan. Some parts of this dictation were generated by voice recognition software and ma y contain typographical and/or grammatical inaccuracies. Differential Diagnosis Differential diagnosis: Likely upper respiratory infection, croup, otitis media, sinusitis, viral infection, bronchitis, influenza and pharyngitis Discharge Plan Discharge Clinical Impression: Foreign body in right foot Patient Disposition: Home, Self-Care Condition: Stable Additional Instructions: Seek care immediately if: Blood soaks through your bandage. You have pus or a foul odor coming from the wound. Call your doctor if: You continue to have pain even after you have taken pain medicine. You have muscle, joint, or body aches, sweating, or a fever. You have increased swelling, redness, or bleeding in your wound. Your skin is itchy, swollen, or you have a rash. You have questions or concerns about your condition or care. Prescriptions: New mupirocin 2 % ointment 1 applic topical BID Qty: 15 0RF No Action atorvastatin 80 mg tablet 80 mg PO DAILY aspirin 81 mg Capsule lisinopril 10 mg tablet 10 mg PO DAILY ergocalciferol (vitamin D2) 1,250 mcg (50,000 unit) capsule 1,250 mcg PO WEEKLY Follow-up/Referrals: PHYSICIAN,PAPER RECLAIMING MACHINE OPERATOR [Primary Care Provider] - Stand Alone Forms: Work/School Release IP
[2024-09-26 09:42] VITALS: BP 134/73; PULSE 61; RESP 19; TEMP 36.9; O2SAT 100
== END 2024-09-26 10:39 | disposition home or self-care (01) ==
PROVIDERS: Emergency Provider Nurse Practitioner Family
DX: S90.851A Superficial foreign body, right foot, initial encounter (principal)
CPT/HCPCS: 99213; G0463

== ENCOUNTER 2024-09-30 12:22 | Emergency (ER) | payer OTHER, MEDICAID, SELFPAY ==
[2024-09-30 12:23] VITALS: BP 128/83; PULSE 64; RESP 16; TEMP 36.6; O2SAT 100
--- NOTE | 2024-09-30 13:58 | ED.ALLEREA ---
HPI - Allergic Reaction General Chief complaint: Allergic Reaction Stated complaint: allergic reaction and facial swelling Time Seen by Provider: 09/30/24 13:35 Source: patient Mode of arrival: ambulatory Limitations: no limitations History of Present Illness HPI narrative: 39 years old white female drove herself to the emergency room complaining of sudden onset of swelling of the left side of her face while eating her breakfast this morning, the swelling resolved in 2 hours later. 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 She denies any fever, chills, nausea, vomiting. Related Data Home Medications Medication Instructions Recorded Confirmed ergocalciferol (vitamin D2) 1,250 1,250 mcg PO WEEKLY 07/26/23 11/06/23 mcg (50,000 unit) capsule lisinopril 10 mg tablet 10 mg PO DAILY 07/26/23 11/06/23 atorvastatin 80 mg tablet 80 mg PO DAILY 11/06/23 11/06/23 aspirin 81 mg capsule mg 08/09/24 Allergies Allergy/AdvReac Type Severity Reaction Status Date / Time poison jennifer extract Allergy Unknown Rash Verified 08/09/24 16:47 Review of Systems Review of Systems: All systems reviewed & are unremarkable except as noted in HPI and below PMFSH Past Medical History Medical History No active medical problems Surgical History Surgical History History of cholecystectomy Social History Social History Substance use: never Exam Narrative: General appearance: Well-developed, well-nourished Skin: Normal color Head: Normocephalic, nontraumatic Eyes: Clear conjunctiva ENT: Oropharynx normal, ears normal, nose normal, slight tenderness left parotid gland area, no swelling, no bruises, no rash. Neck: Supple, nontender Chest and respiratory: Airway patent, no respiratory distress, no accessory muscle use Heart: Regular rate/rhythm Neurologic: Alert and oriented ?3, ASSISTANT HVAC MECHANIC is normal as tested, no gross motor deficit Course Vital Signs Vital signs: Vital Signs Temperature 36.6 C 09/30/24 12:23 Pulse Rate 64 09/30/24 12:23 Respiratory Rate 16 09/30/24 12:23 Blood Pressure 128/83 09/30/24 12:23 Pulse Oximetry 100 09/30/24 12:23 Oxygen Delivery Room Air 09/30/24 12:23 Temperature 36.6 C 09/30/24 12:23 Pulse Rate 64 09/30/24 12:23 Respiratory Rate 16 09/30/24 12:23 Blood Pressure 128/83 09/30/24 12:23 Pulse Oximetry 100 09/30/24 12:23 Oxygen Delivery Room Air 09/30/24 12:23 MDM - Allergic Reaction MDM Narrative Medical decision making narrative: Patient presents with swelling left face while eating her breakfast this morning which resolve in 2 hours. Id Vital signs are stable Physical examination is insignificant Differential diagnosis include parotitis, parotid gland stone, tumor Patient declined CT scan at this time, would like to have antibiotic and contact her family physician for further evaluation later. Differential Diagnosis Differential diagnosis: Likely other (As above) Critical Care Time Critical Care Time Critical Care Time: No Discharge Plan Discharge Clinical Impression: Sialoadenitis, unspecified Patient Disposition: Home, Self-Care Condition: Stable Instructions: Antibiotic Form, Sialoadenitis (ED) Additional Instructions: Return if symptoms are worsening , call your family physician for appointment, take Tylenol as as needed for aches and pain, continue home medications. Encourage oral fluid intake Gentle massage/local heat compresses of gland from posterior to anterior to improve flow Lemon drops, hard candy. Prescriptions: New amoxicillin-pot clavulanate [Augmentin] 500-125 mg tablet 1 tablet PO Q8H Qty: 30 0RF No Action atorvastatin 80 mg tablet 80 mg PO DAILY mupirocin 2 % ointment 1 applic topical BID Qty: 15 0RF aspirin 81 mg Capsule lisinopril 10 mg tablet 10 mg PO DAILY ergocalciferol (vitamin D2) 1,250 mcg (50,000 unit) capsule 1,250 mcg PO WEEKLY Follow-up/Referrals: PHYSICIAN,SENIOR PHP WEB DEVELOPER [Non-Staff] -
[2024-09-30 14:26] VITALS: BP 132/84; PULSE 80; RESP 16; O2SAT 99
== END 2024-09-30 14:27 | disposition home or self-care (01) ==
PROVIDERS: Emergency Provider Emergency Medicine; PCP Emergency Medicine
DX: K11.20 Sialoadenitis, unspecified (principal); Z90.49 Acquired absence of other specified parts of digestive tract
CPT/HCPCS: 99283

== ENCOUNTER 2024-10-02 21:54 | Emergency (ER) | payer OTHER, MEDICAID, SELFPAY ==
[2024-10-02 21:57] VITALS: BP 121/79; PULSE 58; RESP 15; TEMP 36.1; O2SAT 100
--- NOTE | 2024-10-02 22:02 | ECG_ITS ---
Test Date: 2024-10-02 22:06:43 Measurements Intervals Eclectic Rate: 52 P: 49 CO: 161 QRS: 40 QRSD: 98 T: 46 QT: 408 QTc: 382 Interpretive Statements SINUS BRADYCARDIA BORDERLINE ECG No previous ECG available for comparison Electronically Signed On 10-03-2024 06:06:22 ELEVATORS INSPECTOR by Min Tapia D.O.
--- NOTE | 2024-10-03 01:24 | PC.NURSE ---
Pt ambulated to the desk and states I cant wait to be seen be cause I have to be at work at 5:30 am Pt then ambulated out of the ED w/ a steady gait.
== END 2024-10-03 01:38 | disposition left against medical advice (07) ==
PROVIDERS: Emergency Provider Emergency Medicine; PCP Emergency Medicine
DX: R68.84 Jaw pain (principal)
CPT/HCPCS: 93005; 99199

== ENCOUNTER 2024-10-13 17:40 | Emergency (ER) | payer OTHER, MEDICAID, SELFPAY ==
--- NOTE | ~2024-10-13 | XR_ITS ---
XR chest 2V Ordering provider: Yumiko Carroll MD History: 39 years Female with . cp . Comparison: None. FINDINGS: MEDIASTINUM: The cardiac silhouette is not enlarged. LUNGS: No infiltrates, effusions or pneumothorax. OTHER: No free air under the diaphragm. IMPRESSION: No acute cardiopulmonary pathology. Reviewed, dictated and finalized at location A. 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
--- NOTE | 2024-10-13 17:42 | ECG_ITS ---
Test Date: 2024-10-13 17:46:34 Measurements Intervals Early Rate: 66 P: 52 AZ: 156 QRS: 39 QRSD: 89 T: 38 QT: 361 QTc: 380 Interpretive Statements SINUS RHYTHM Compared to ECG 10/02/2024 22:06:43 Sinus bradycardia no longer present Electronically Signed On 10-14-2024 14:27:32 FIRE EXTINGUISHER MECHANIC by Emmanuel Mendoza M.D.
[2024-10-13 17:44] VITALS: BP 149/76; PULSE 90; RESP 20; TEMP 36.3; O2SAT 97
--- NOTE | 2024-10-13 17:49 | ED_ITS ---
HPI - Chest Pain General Chief Complaint: Chest Pain <GUSTAVO Mack Last Filed: 10/13/24 18:55> Stated Complaint: chest pain R sided jaw pain <GUSTAVO Mack Last Filed: 10/13/24 18:55> Time Seen by Provider: 10/13/24 17:49 <GUSTAVO Mack Last Filed: 10/13/24 18:55> Focused HPI: Patient is a 39 y/o female who presents to the ED with c/o jaw and chest pain. Patient reports she has been having intermittent liat jaw pain, worse on the R side, for the past few weeks. Worse with chewing. States she has seen several dentists and odontist and was told it was not a dental issue. She does note she frequently clenches her teeth. States today pain became worse and began radiating into her neck and upper chest. She became concerned it was a cardiac issue. Has not taken anything for pain today. Also reports nausea today. Denies ABD pain, vomiting, sob. Patient states her PCP scheduled her to undergo MRI of her jaw/neck on 10/21. GENERAL: Well-appearing, obese with BMI of 39.1, and in no acute distress. HEAD: Normocephalic, atraumatic. ENT: No significant tenderness along jaw/TMJ region. No stridor or trismus. No swelling of face/jaw. Hirsutism present. CHEST: Clear to auscultation. ?No respiratory distress. HEART: Regular rate and rhythm.? MSK: No chest wall tenderness to palpation. NEURO: ?Alert and oriented x3. Patient screened in triage and initial orders placed.? ?Additional care and disposition to be based upon?diagnostic testing and treatment. <GUSTAVO Mack Last Filed: 10/13/24 18:55> Source: patient <GUSTAVO Mack Last Filed: 10/13/24 18:55> Mode of arrival: ambulatory <GUSTAVO Mack Last Filed: 10/13/24 18:55> Limitations: no limitations <GUSTAVO Mack Last Filed: 10/13/24 18:55> History of Present Illness HPI narrative: agree with triage note above <Mason Preciado PA-C - Last Filed: 10/14/24 01:01> Related Data Home Medications: Home Medications Medication Instructions Recorded Confirmed ergocalciferol (vitamin D2) 1,250 1,250 mcg PO WEEKLY 07/26/23 11/06/23 mcg (50,000 unit) capsule lisinopril 10 mg tablet 10 mg PO DAILY 07/26/23 11/06/23 atorvastatin 80 mg tablet 80 mg PO DAILY 11/06/23 11/06/23 aspirin 81 mg capsule mg 08/09/24 <GUSTAVO Mack Last Filed: 10/13/24 18:55> Allergies/Adverse Reactions: Allergies Allergy/AdvReac Type Severity Reaction Status Date / Time poison jennifer extract Allergy Unknown Rash Verified 10/13/24 17:41 cat dander Allergy Watery Eye Verified 10/13/24 17:41 <Aleida Lea PA-C - Last Filed: 10/13/24 18:55> Review of Systems Review of Systems: All systems as dictated in HPI <GUSTAVO Hooper Last Filed: 10/14/24 01:01> PMFSH Past Medical History Medical History: Medical History No active medical problems <GUSTAVO Mack Last Filed: 10/13/24 18:55> Surgical History Surgical History: Surgical History History of cholecystectomy <GUSTAVO Mack Last Filed: 10/13/24 18:55> Social History Social History: Social History Substance use: never <GUSTAVO Mack Last Filed: 10/13/24 18:55> Exam Narrative: GENERAL: Well-appearing, well-nourished, and in no acute distress. HEAD: Normocephalic, atraumatic. EYES: PERRLA and EOMI. ENT: Mild tenderness to bilateral TMJs. Nares clear, no rhinorrhea or epistaxis. Mucous membranes moist. Oropharynx without tonsillar hypertrophy exudate or other lesions. NECK: Supple. No adenopathy or masses. CHEST: No respiratory distress. Clear to auscultation. No wheezes rales or rhonchi HEART: Regular rate and rhythm. No murmur heard. Normal peripheral pulses. ABDOMEN: Soft, nontender, nondistended, normal active bowel sounds. MSK: Normal range of motion. No edema. SKIN: Warm, dry, no rash. NEURO: Alert and oriented x4. No focal deficits. PSYCH: Normal mood and affect. <Mason Preciado PA-C - Last Filed: 10/14/24 01:01> Course Vital Signs Vital signs: Vital Signs Temperature 97.4 F L 10/13/24 17:44 Pulse Rate 90 10/13/24 17:44 Respiratory Rate 20 10/13/24 17:44 Blood Pressure 149/76 H 10/13/24 17:44 Pulse Oximetry 97 10/13/24 17:44 Oxygen Delivery Room Air 10/13/24 17:44 Temperature 97.4 F L 10/13/24 17:44 Pulse Rate 90 10/13/24 17:44 Respiratory Rate 20 10/13/24 17:44 Blood Pressure 149/76 H 10/13/24 17:44 Pulse Oximetry 97 10/13/24 17:44 Oxygen Delivery Room Air 10/13/24 17:44 <Aleida Lea PA-C - Last Filed: 10/13/24 18:55> Vital Signs Temperature 97.4 F L 10/13/24 17:44 Pulse Rate 90 10/13/24 17:44 Respiratory Rate 20 10/13/24 17:44 Blood Pressure 149/76 H 10/13/24 17:44 Pulse Oximetry 97 10/13/24 17:44 Oxygen Delivery Room Air 10/13/24 17:44 Temperature 97.4 F L 10/13/24 17:44 Pulse Rate 90 10/13/24 17:44 Respiratory Rate 20 10/13/24 17:44 Blood Pressure 149/76 H 10/13/24 17:44 Pulse Oximetry 97 10/13/24 17:44 Oxygen Delivery Room Air 10/13/24 17:44 <Mason Preciado PA-C - Last Filed: 10/14/24 01:01> MDM - Chest Pain MDM Narrative Medical decision making narrative: MSE by LANEY in triage. Patient requested d-dimer testing. She is denying any shortness of breath, palpitations, pleuritic pain, lower extremity pain/swelling. She meets PERC negative criteria. Patient also requesting strep testing. Denies sore throat. <Aleida Lea PA-C - Last Filed: 10/13/24 18:55> MSE by LANEY in triage. Patient requested d-dimer testing. She is denying any shortness of breath, palpitations, pleuritic pain, lower extremity pain/swelling. She meets PERC negative criteria. Patient also requesting strep testing. Denies sore throat. 39-year-old female who presents to the ED for chest pain and jaw ongoing for past month. EKG shows normal sinus rhythm no acute ischemic findings. Troponin is normal. Lab work is unremarkable overall. Heart score is 1 due to BMI. strep swab negative. Patient is exhibiting a lot of anxiety. She is asking about specific laboratory results such as why the anion gap is low at 3 rather than being in the normal 4- 12 range. Suspect anxiety for the cause of her pain. vitals remai jean stable. Perc rule negative for PE. Chest x-ray is normal. Patient will be discharged in stable condition. Supportive measures discussed and return precautions given. Patient is understanding and agreeable with plan for discharge with PCP follow-up. <Mason Preciado PA-C - Last Filed: 10/14/24 01:01> Lab Data Result diagrams: 10/13/24 17:57 10/13/24 17:57 <Aleida Lea PA-C - Last Filed: 10/13/24 18:55> Labs: Lab Results 10/13/24 10/13/24 10/13/24 Range/Units 17:57 20:26 21:21 WBC 9.3 (4.5-10.0) K/mm3 RBC 4.33 (4.2-5.4) M/mm3 Hgb 13.1 (12.0-15.0) g/dL Hct 39.0 (37.0-47.0) % MCV 90.1 (80-100) fl MCH 30.3 (26-34) pg MCHC 33.6 (32-36) g/dl RDW 13.2 (11.5-14.5) % Plt Count 303 (150-375) k/mm3 MPV 9.1 (7.4-10.4) fl Immature Gran % (Auto) 0.2 (0-0.5) % Neut % (Auto) 68.2 (45.5-73.1) % Lymph % (Auto) 25.5 (18.3-44.2) % Kleberg % (Auto) 5.1 (2.6-8.5) % Eos % (Auto) 0.9 (0-4.4) % Baso % (Auto) 0.1 L (0.2-1.2) % Lymph # (Auto) 2.36 (0.9-3.2) K/mm3 Kleberg # (Auto) 0.5 (0.1-0.6) K/mm3 Eos # (Auto) 0.1 (0-0.3) K/mm3 Baso # (Auto) 0.0 (0.0-0.1) K/mm3 Abs Immat Gran (auto) 0.02 (0.00-0.031) K/mm3 Absolute Neuts (auto) 6.3 (1.3-6.7) K/mm3 Absolute Nucleated RBC 0.000 (0.0-0.012) K/mm3 Nucleated RBC % 0.0 (0.0-0.2) % PT 13.7 (11.1-14.7) Seconds INR 1.0 APTT 28.3 (22.3-36.8) Seconds Sodium 137 (137-145) mmol/L Potassium 3.7 (3.4-5.0) mmol/L Chloride 106 (98-107) mmol/L Carbon Dioxide 28 (22-30) mmol/L Anion Gap 3 L (4-12) mmol/L BUN 11 (7-17) mg/dL Creatinine 0.50 L (0.7-1.0) mg/dL Estim Creat Clear Calc 154 ml/min Estimated GFR > 60 (59 - ) Glucose 92 (65-110) mg/dL Calcium 9.2 (8.4-10.2) mg/dL Total Bilirubin 0.7 (0.2-1.3) mg/dL AST 34 (14-36) U/L ALT 26 (6-35) U/L Alkaline Phosphatase 56 (38-126) U/L Troponin I < 0.012 < 0.012 (0.000-0.034) ng/mL Total Protein 8.0 (6.3-8.2) g/dL Albumin 4.6 (3.5-5.1) g/dL Lipase 80 (23-300) U/L Group A Strep (PCR) Not detected (Negative) <Aleida Lea PA-C - Last Filed: 10/13/24 18:55> Lab Results 10/13/24 10/13/24 10/13/24 Range/Units 17:57 20:26 21:21 WBC 9.3 (4.5-10.0) K/mm3 RBC 4.33 (4.2-5.4) M/mm3 Hgb 13.1 (12.0-15.0) g/dL Hct 39.0 (37.0-47.0) % MCV 90.1 (80-100) fl MCH 30.3 (26-34) pg MCHC 33.6 (32-36) g/dl RDW 13.2 (11.5-14.5) % Plt Count 303 (150-375) k/mm3 MPV 9.1 (7.4-10.4) fl Immature Gran % (Auto) 0.2 (0-0.5) % Neut % (Auto) 68.2 (45.5-73.1) % Lymph % (Auto) 25.5 (18.3-44.2) % Kleberg % (Auto) 5.1 (2.6-8.5) % Eos % (Auto) 0.9 (0-4.4) % Baso % (Auto) 0.1 L (0.2-1.2) % Lymph # (Auto) 2.36 (0.9-3.2) K/mm3 Kleberg # (Auto) 0.5 (0.1-0.6) K/mm3 Eos # (Auto) 0.1 (0-0.3) K/mm3 Baso # (Auto) 0.0 (0.0-0.1) K/mm3 Abs Immat Gran (auto) 0.02 (0.00-0.031) K/mm3 Absolute Neuts (auto) 6.3 (1.3-6.7) K/mm3 Absolute Nucleated RBC 0.000 (0.0-0.012) K/mm3 Nucleated RBC % 0.0 (0.0-0.2) % PT 13.7 (11.1-14.7) Seconds INR 1.0 APTT 28.3 (22.3-36.8) Seconds Sodium 137 (137-145) mmol/L Potassium 3.7 (3.4-5.0) mmol/L Chloride 106 (98-107) mmol/L Carbon Dioxide 28 (22-30) mmol/L Anion Gap 3 L (4-12) mmol/L BUN 11 (7-17) mg/dL Creatinine 0.50 L (0.7-1.0) mg/dL Estim Creat Clear Calc 154 ml/min Estimated GFR > 60 (59 - ) Glucose 92 (65-110) mg/dL Calcium 9.2 (8.4-10.2) mg/dL Total Bilirubin 0.7 (0.2-1.3) mg/dL AST 34 (14-36) U/L ALT 26 (6-35) U/L Alkaline Phosphatase 56 (38-126) U/L Troponin I < 0.012 < 0.012 (0.000-0.034) ng/mL Total Protein 8.0 (6.3-8.2) g/dL Albumin 4.6 (3.5-5.1) g/dL Lipase 80 (23-300) U/L Group A Strep (PCR) Not detected (Negative) <Mason Preciado PA-C - Last Filed: 10/14/24 01:01> Discharge Plan Discharge Clinical Impression: Atypical chest pain <Aleida Lea PA-C - Last Filed: 10/13/24 18:55> Patient Disposition: Home, Self-Care <Aleida Lea PA-C - Last Filed: 10/13/24 18:55> Condition: Stable <Aleida Lea PA-C - Last Filed: 10/13/24 18:55> Instructions: Antibiotic Form, Chest Pain (ED) <Aleida Lea PA-C - Last Filed: 10/13/24 18:55> Additional Instructions: Exam and imaging today are reassuring overall. Please continue following up with PCP on this issue. Take Tylenol and ibuprofen for pain control regularly. If you have any new or worsening symptoms please return to the ER for further evaluation. <Aleida Lea PA-C - Last Filed: 10/13/24 18:55> Prescriptions: No Action atorvastatin 80 mg tablet 80 mg PO DAILY mupirocin 2 % ointment 1 applic topical BID Qty: 15 0RF aspirin 81 mg Capsule lisinopril 10 mg tablet 10 mg PO DAILY ergocalciferol (vitamin D2) 1,250 mcg (50,000 unit) capsule 1,250 mcg PO WEEKLY amoxicillin-pot clavulanate [Augmentin] 500-125 mg tablet 1 tablet PO Q8H Qty: 30 0RF <Aleida Lea PA-C - Last Filed: 10/13/24 18:55> Follow-up/Referrals: Srinivasan Mota MD [Primary Care Provider] - <Aleida Lea PA-C - Last Filed: 10/13/24 18:55> Time of Disposition: 21:19 <Aleida Lea PA-C - Last Filed: 10/13/24 18:55> 21:19 <Mason Preciado PA-C - Last Filed: 10/14/24 01:01> Quality HEART score for chest pain patients History: slightly suspicious <Mason Preciado PA-C - Last Filed: 10/14/24 01:01> ECG: normal <Mason Preciado PA-C - Last Filed: 10/14/24 01:01> Age: < or = to 45 years <Mason Preciado PA-C - Last Filed: 10/14/24 01:01> Risk factors: 1 or 2 risk factors <Mason Preciado PA-C - Last Filed: 10/14/24 01:01> Troponin: < or = to 1x normal limit <Mason Preciado PA-C - Last Filed: 10/14/24 01:01> Heart score: 1 <Mason Preciado PA-C - Last Filed: 10/14/24 01:01>
[2024-10-13 18:04] LABS: Basophils Percent Auto 0.1 % (0.2-1.2); Eosinophils Absolute Auto 0.1 K/mm3 (0-0.3); Eosinophils Percent Auto 0.9 % (0-4.4); Hemoglobin 13.1 g/dL (12.0-15.0); Immature Granulocyte Absolute 0.02 K/mm3 (0.00-0.031); Immature Granulocyte Percent A 0.2 % (0-0.5); Lymphocytes Absolute Auto 2.36 K/mm3 (0.9-3.2); Lymphocytes Percent Auto 25.5 % (18.3-44.2); Mean Corpuscular HGB Conc 33.6 g/dl (32-36); Mean Corpuscular Hemoglobin 30.3 pg (26-34); Mean Corpuscular Volume 90.1 fl (80-100); Mean Platelet Volume 9.1 fl (7.4-10.4); Monocytes Absolute Auto 0.5 K/mm3 (0.1-0.6); Monocytes Percent Auto 5.1 % (2.6-8.5); Neutrophils Absolute Auto 6.3 K/mm3 (1.3-6.7); Neutrophils Percent Auto 68.2 % (45.5-73.1); Platelet Count Result 303 k/mm3 (150-375); Red Blood Count 4.33 M/mm3 (4.2-5.4); Red Cell Distribution Width 13.2 % (11.5-14.5); White Blood Count 9.3 K/mm3 (4.5-10.0)
[2024-10-13 18:19] LABS: Partial Thromboplastin Time 28.3 Seconds (22.3-36.8); Prothrombin Time 13.7 Seconds (11.1-14.7)
[2024-10-13 18:23] LABS: Alanine Aminotransferase 26 U/L (6-35); Albumin Level 4.6 g/dL (3.5-5.1); Alkaline Phosphatase 56 U/L (38-126); Anion Gap 3 mmol/L (4-12); Aspartate Amino Transferase 34 U/L (14-36); Bilirubin,Total 0.7 mg/dL (0.2-1.3); Blood Urea Nitrogen 11 mg/dL (7-17); Calcium 9.2 mg/dL (8.4-10.2); Carbon Dioxide 28 mmol/L (22-30); Chloride 106 mmol/L (98-107); Estimated CRCL calculation 154 ml/min; Estimated Glomerular Filt Rate > 60; Glucose 92 mg/dL (65-110); Lipase 80 U/L (23-300); Potassium 3.7 mmol/L (3.4-5.0); Sodium 137 mmol/L (137-145)
[2024-10-13 18:35] LABS: Troponin I < 0.012 ng/mL (0.000-0.034)
--- NOTE | 2024-10-13 20:18 | PC.NURSE ---
this patient is ambulatory to ER room 8. Patient states she is not having chest pain but expresses she is having jaw, throat and nausea. patient placed in hospital gown. urine obtained.
[2024-10-13] MEDS: ACETAMINOPHEN 500 MG TABLET 1000 MG PO (20:22)
--- NOTE | 2024-10-13 20:34 | ECG_ITS ---
Test Date: 2024-10-13 20:34:22 Measurements Intervals [place] Rate: 52 P: 58 AK: 160 QRS: 41 QRSD: 95 T: 40 QT: 407 QTc: 381 Interpretive Statements SINUS BRADYCARDIA WITH SINUS ARRHYTHMIA Compared to ECG 10/13/2024 17:46:34 Sinus rhythm no longer present Electronically Signed On 10-14-2024 14:29:29 STUDENT SUPPORT SERVICES DIRECTOR by Emmanuel Mendoza M.D.
--- NOTE | 2024-10-13 20:53 | PC.NURSE ---
patient has expressed several times she would like a strep test. RN informed patient that MD will be in soon.
[2024-10-13 20:54] LABS: Troponin I < 0.012 ng/mL (0.000-0.034)
[2024-10-13 21:52] LABS: Strep Group A RT-PCR NOT DETECTED (Negative)
== END 2024-10-13 23:11 | disposition home or self-care (01) ==
PROVIDERS: Student in an Organized Health Care Education/Training Program; Emergency Provider Physician Assistant; PCP Emergency Medicine
DX: R07.89 Other chest pain (principal)
CPT/HCPCS: 36415; 71046; 80053; 83690; 84484; 85025; 85610; 85730; 87651; 93005; 99284; A9270

== ENCOUNTER 2024-10-19 12:58 | Outpatient (CLI) | payer OTHER, MEDICAID, SELFPAY ==
--- NOTE | ~2024-10-19 | MR_ITS ---
EXAMINATION: MR orbits face neck wo/w con DATE: 10/19/2024 13:49 INDICATION: Jaw and neck pain. TECHNIQUE: Magnetic resonance imaging (MRI) of the neck was performed without and with 20 mL MultiHan ce intravenous contrast. COMPARISON: Head CT 07/26/2023 FINDINGS: There are no pathologically enlarged lymph nodes. There is no abscess. There is 14 degrees levoscoliosis of cervical spine. There is developmental anterior and posterior fusion at C4-C5. There is mild cervical spondylosis. IMPRESSION: 1. No specific etiology for the patient's symptoms. Reviewed, dictated and finalized at location A. ER WIRER
== END 2024-10-19 12:59 | disposition home or self-care (01) ==
PROVIDERS: PCP Emergency Medicine; Visit Provider Emergency Medicine
DX: M54.2 Cervicalgia (principal); R68.84 Jaw pain
CPT/HCPCS: 70543; A9577

== ENCOUNTER 2025-07-08 17:54 | Emergency (ER) | payer OTHER, SELFPAY ==
--- OUTSIDE RECORDS SUMMARY | 2025-04-26 11:04 | XMS_ITS | Continuity of Care Document ---
Author Organization [facility] Address [address] [place] [address] [place] [address] Phone Care Team Providers Care Locomotive Firer Name Role Phone Srinivasan Mota MD Unavailable Unavailable Allergies, Adverse Reactions, Alerts Substance Reaction Status Criticality No Known Allergies Active No Inform ation Medications Medication Instructions Dosage Effective Dates (start - stop) Status Comments Klonopin 0.5 mg tablet take 1 tablet by oral route every 4 - 6 hours as needed 0.5 MG - Active prn for anxiety, Avoid driving or operate machines doxycycline monohydrate 100 mg tablet take 1 tablet by oral route 2 times every day 100 MG - Active Procedures Procedure Date OFFICE/OUTPATIENT VISIT, EST OFFICE/OUTPATIENT VISIT, EST OFFICE/OUTPATIENT VISIT, EST OFFICE/OUTPATIENT VISIT, EST OFFICE/OUTPATIENT VISIT, EST OFFICE/OUTPATIENT VISIT, EST OFFICE/OUTPATIENT VISIT, NEW Advance Directives Directive Yes / No Effective Date File Name No Information Encounters Encounter Description Practice Location Reason(s) For Visit Diagnoses Date Provider Providers Copied on Encounter OFFICE/OUTPA TIENT VISIT, EST [facility], [address] [place], [id number], [place] tel:[phone] [facility] HLP (chief complaint) hTN (chief complaint) anxieyt1 (chief complaint) tic bite1 (chief complaint) weight loss1 (chief complaint) Essential (primary) hypertensionGeneral ized Anxiety DisorderMixed hyperlipidemiaAbnor mal weight lossCellulitis of left arm 5 Nakul Mattson. [address], [place], [place], [address] , [place]. tel:[phone] OFFICE/OUTPA TIENT VISIT, [facility], [address] [place], [place], [address], [place] tel:[phone] [facility] HTN (chief complaint) anxiety1 (chief complaint) toothache1 (chief complaint) taste1 (chief complaint) Essential (primary) hypertensionParageu siaGeneralized Anxiety DisorderAtypical facial pain 5 Mota Srinivasan. [address], [place], [place], [address] , [place]. tel:[phone] OFFICE/OUTPA TIENT VISIT, [facility], [address] [place], [address], [place] tel:[phone] [facility] nausea1 (chief complaint) HTN (chief complaint) ParageusiaGERD w/o esophagitisEssentia l (primary) hypertension 4 Mota Srinivasan. [address], [place], [place], [address] , [place]. tel:[phone] OFFICE/OUTPA TIENT VISIT, [facility], [address] [place], [address], [place] tel:[phone] [facility] pain1 (chief complaint) HTN (chief complaint) HLP (chief complaint) anxiety1 (chief complaint) Atypical facial painGeneralized Anxiety DisorderMixed hyperlipidemiaEssen tial (primary) hypertension 4 Nakul Mattson. [address], [place], [place], [address] , [place]. tel:[phone] OFFICE/OUTPA TIENT VISIT, [facility], [address] [place], [address], [place] tel:[phone] [facility] jaw pain1 (chief complaint) Atypical facial painSialoadenitisCe rvicalgiaGERD w/o esophagitis 4 Mota Srinivasan. [address], [place], [place], [address] , [place]. tel:[phone] OFFICE/OUTPA TIENT VISIT, [facility], [address] [place], [address], [place] tel:[phone] [facility] lymph node1 (chief complaint) HLP (chief complaint) hair (chief complaint) LVH (chief complaint) anxiety1 (chief complaint) Mixed hyperlipidemiaSialo adenitisHirsutismRa ised antibody titerLymphadenopath yObstructive Sleep Apnea HypopneaGeneralized Anxiety Disorder 4 Nakul Mattson. [address], [place], [place], [address] , [place]. tel:[phone] OFFICE/OUTPA TIENT VISIT, [facility], [address] [place], [address], [place] tel:[phone] [facility] tinnitus1 (chief complaint) lymph1 (chief complaint) HTN (chief complaint) d-dimer1 (chief complaint) hair1 (chief complaint) Migraine w/o aura, not intractable, w/o status migrainosusTinnitus , bilateralEssential (primary) hypertensionLymphad enopathyHirsutismRa ised antibody titer 4 Nakul Mattson. [address] [facility] [address], [place], [place], [address] , [place]. tel:[phone] Family History Family Member Type Diagnosis Age At Onset Mother Problem High cholesterol Father Problem Hypertension Brother Problem High cholesterol Mother Problem Hypertension Mother Problem kidney stone Father Problem Diabetes mellitus Brother Problem Hypertension Father Problem High cholesterol Payers Payer name Insurance type Covered constitution party ID Authoriza tion(s) [facility] CI [id number] Social History Type Description Quantity Date Captured Comments Alcohol Use Details No Caffeine Use Details Unknown Tobacco Use Status Current non-smoker Smoking Status Never smoker Sex Female Vital Signs Date / Time: Height Weight BMI Pulse Rate Blood Pressure Temperature Respiratory Rate Body Surface Area Head Circumference BMI percentile Pulse Ox Inhaled Ox 4:15 PM 65.00 in 225.60 lbs 37.5 4 kg/m eter (2) 61 /min 132/80 mm[Hg] 97.6 F 16 /min Chief Complaint And Reason For Visit From encounter dated '04/26/2025 16:04'. HLP (chief complaint). Description: Pt has HLP Pt stopped taking crestor on her own and she is working on diet hTN (chief complaint). Description: Pt weaned herself off lisinopril and her bp is ok anxieyt1 (chief complaint). Description: Pt has chronic mild anxiety pt denies any depression or any suicidal or homicidal thought Pt denies any crying spells Pt takes klonopin PRn for anxiety tic bite1 (chief complaint). Description: Pt noticed a tic bite left shoulder area two days ago. She was able to remove the tick successfully Pt denies any headache, joint pain, etc . weight loss1 (chief complaint). Description: Pt has been diet and exercising and intentionally losing weight Pt denies any early satiety, nausea, vomiting, etc Plan Of Treatment Date Type Action Status Referral Ordered: MRI NECK SPINE W/O DYE ordered History Of Present Illness Encounter Date Complaint History Of Prese nt Illness hTN Pt weaned hersel f off lisinopril and her bp is ok HLP Pt has HLP Pt st opped taking crestor on her own and she is working on diet weight loss1 Pt has been diet and exercising and intentionally losing weight Pt denies any early satiety, nausea, vomiting, etc tic bite1 Pt noticed a tic bite left shoulder area two days ago. She was able to remove the tick successfully Pt denies any headache, joint pain, etc . anxieyt1 Pt has chronic m ild anxiety pt denies any depression or any suicidal or homicidal thought Pt denies any crying spells Pt takes klonopin PRn for anxiety taste1 Pt continue to c omplaint of metal taste in her mouth all the time .Pt is seeing ENT and she had negative nasal endoscopy Pt also is seeing GI with negative EGD Pt has negative H pylor. Pt tried reglan and omeprazole but did not help so she is off above. Pt feels chronic nausea. toothache1 Pt continues to complaint of severe toothache right lower molar and she has seen imaging scheduler and dentist and all told her no tooth issue. Pt states that she feels very sensitive around the tooth and is causing daily pain anxiety1 Pt has chronic a nxiety. Pt denies any depression or any suicidal or homicidal thought Pt is off cymbalta on her own. Pt needs klonopin refilled HTN Pt has mild HTn Pt continues to states that her bp keeps going up to 150s at home which makes her having headache and she is very concerned about her bp. She wants to go higher on lisinopril. Pt sees cardiology and she had renal artery ultrasound done which showed increasing velocity on right side and she will do MRA of renal artery by cardiology HTN Pt has HTn pt ne eds lisinopril refilled nausea1 Pt has chronic n ausea with bad taste in her mouth for several months pt states that it tastes like metal and toxins. pt has been to dentist multiple times without any diagnosis Pt denies any GERD Pt states that she taste blood in her mouth but she does not see any blood Pt is on pepcid but not helping her GI doctor order stool sample to check for H pylori but she was told that she has to be off pepcid for two weeks and she does not want to wait anymore Pt feels very nauseated all the time Pt told me she had EGD around February of 2024 which was fine per patient. HTN Pt has HTn Pt st ates that her bp fluctuates a lot. Pt states that her bp is high sometimes at home around 160s. Pt takes lisinopril and she wants increasing lisinopril dose. pt had negative cardiac echo, carotid doppler and renal artery scan. Pt has slightly high distal right renal artery velocity. pain1 Pt c/o persisten t right jaw area pain with radiation of pain down to the whole anterior neck and collar bone area for several months Pt c/o stinging type of pain. Pt saw multiple dentists as well as imaging scheduler as well and no tooth issue was found. Pt denies any ear pain. Pt also has poor taste in her mouth Pt does have GERD and she is on pepcid daily Pt sees GI and she has shamar with GI today. Pt was just treated for sialoadenitis last week. Pt took abx and her left side cheek pain resolved. Pt was offered CT soft tissue of the neck in ER last week but she deferred due to history of multiple CT scan and she is afraid of excessive radiation. Pt states that she feels constant pain the entire anterior neck area from her right jaw down to her collar bone. Pt had MRi of soft tissue or orbits, face, neck with and without contrast which is normal. anxiety1 Pt has anxiety a nd depression with hypochondriasis . Pt constantly worry about her health and she has many functional complaints which does not make any sense. Pt also is afraid of trying cymbalta..... HLP Pt has HLP Pt wa nts to take 5 mg crestor instead of 10 mg?? Pt thinks héctor t10 mg will cause side effects jaw pain1 Pt c/o persisten t right jaw area pain with radiation of pain down to the whole anterior neck and collar bone area for several months Pt c/o stinging type of pain. Pt saw multiple dentists as well as imaging scheduler as well and no tooth issue was found. Pt denies any ear pain. Pt also has poor taste in her mouth Pt does have GERD and she is on pepcid daily Pt sees GI and she has shamar with GI today. Pt was just treated for sialoadenitis last week. Pt took abx and her left side cheek pain resolved. Pt was offered CT soft tissue of the neck in ER last week but she deferred due to history of multiple CT scan and she is afraid of excessive radiation. Pt states that she feels constant pain the entire anterior neck area from her right jaw down to her collar bone. anxiety1 Pt has choric an xiety and depression and she is constantly concerned about her medical condition. pt had more than 17 CT scans and saw multiple specialists and no definitive diagnosis was made. LVH Pt has history o f LVH and she is seeing cardiology, PT also has sleep apnea but she does not want to use cpap. hair Pt has hirsutism and PCOS. her hormone levels are all normal. lymph node1 Pt notices acute onset of left side parotid gland swelling, bad taste in her mouth and swelling cervical lymph node for several weeks. Pt denies any GERD .Pt went to Er over the weekend due to above with worsening left parotid gland swelling and pain Pt was given augmentin and ER MD did offer CT of neck soft tissue but she deferred. Pt was given augmentin. Pt is concerned about left side cheek swelling. Pt was seen by dentist and no tooth infection HLP Pt has HLP Pt is seeing cardiology and she had advanced lipid panel done and her LDL particle is very high as well. Pt was started on lipitor but she has not been taking it. d-dimer1 Pt has chronic e levated D-dimer without diagnosis hair1 Pt has excessive hair growth around chin area Pt does not have ovarian cyst Pt was told that she has PCOS. HTN Pt has HTN Pt ta kes lisinopril and her bp is ok. lymph1 Pt has chronic p eriportal lymphadenopathy s/p negative endoscopic ultrasound with negative biopsy recently. Pt had MRI of abdomen 6 months ago which showed stable lymph node. Pt is seeing GI doctor but was told to follow up next year. Pt denies any peg abd pain. Pt had gallbladder removed 2020. Pt has lymph node swelling since 2022. Pt denies any constipation or diarrhea. Pt also had multiple negative EGD and total of 17 CT scan of abdomen and pelvis which were all negative. pt also had negative MRI of chest and pelvis. Pt denies any GERD Pt denies any abd pain but she feels chronic nausea Pt failed PPI tinnitus1 Pt c/o chronic t innitus x 3 years. Pt denies any hearing loss, which was confirmed by hearing study. Pt c/o chronic dizziness and lightheadedness. pt denies any vertigo. Pt denies any orthostasis. Pt denies any ear pain. Pt had normal MRI of brain 2 years ago and normal CTA head and neck last year. Pt c/o throbbing and pressure headache with nausea and photophobia. Pt denies any positional dizziness. Pt denies any syncope. Pt states that she feels slightly blurred vision as well. Pt c/o right side anterior neck pain, not related to swallowing. Pt denies any head injury or waking up at night with headache. Pt states that she has headache daily. Pt saw neurologist last year and she was recommend migraine medication but she is not interested in it. She wants to find out why she has headache Instructions Date Instruction Additional Infor mation No Information Assessments Type Assessment Date assessment Essential (primary) hypertension assessment Generalized Anxiety Disorder Apr assessment Mixed hyperlipidemia assessment Abnormal weight loss assessment Cellulitis of left arm Mental Status Date Cognitive Assessment Orientation - [place] ed to time, place, person, situation.
--- OUTSIDE RECORDS SUMMARY | 2025-07-08 17:58 | XMS_ITS | Encounter Summary ---
Author Organization [facility] Address [address] [place] [address] Phone Care Team Providers Care Water Team Leader Name Role Phone Carlin Ceballos MD Unavailable [phone] Baylee Barrera RESIDENTIAL COORDINATOR, SALES DATA ANALYST Primary Care Provid er Chencho Benson MD Unavailable Magdy Rudd MD Unavailable Maik John RESIDENTIAL COORDINATOR, SALES DATA ANALYST Unavailable [phone] Lidia Mar RESIDENTIAL COORDINATOR, UNIT REACTOR OPERATOR Unavailable + [phone] Flaquito Lyman MD Primary Care Provider [phone] Rianna Lay RESIDENTIAL COORDINATOR, SALES DATA ANALYST Primary Care Provider Flaquito Lyman MD Primary Care Provider [phone] Oscar Ramírez MD Unavailable [phone] Marah Banerjee PAC Primary Care Pro vider Provider, None Primary Care Provider Unavailabl e Encounter Details Date Type Department Care Team (Late st Contact Info) Description 07/01/2023 Transcribe Orders [facility] Patient Access Admitting [address] [place] [address] Provider, None [place] Social History Tobacco Use Types Packs/Day Years Used Date Smoking Tobacco: Never Smokeless Tobacco: Never Alcohol Use Standard Drinks/Week Comments No 0 (1 standard drink = 0.6 oz pur e alcohol) PHQ-2 Answer Date Recorded Total Score - Questions 1-9 0 02/07 Education Answer Date Recorded What is the highest level of school you have completed or the highest degree you have received? 12th grade 11/16/2022 Sexually Active Control Partners Comments Not Currently None Male Comments No Sex and Gender Information Value Date Recorded Sex Assigned at Female 11/20/2023 2:58 AM STARCH DUMPER Legal Sex Female 7:58 PM CDT Gender Identity Female 11/20/2023 2:58 AM STARCH DUMPER Sexual Orientation Not on file COVID-19 Exposure Response Date Recorded In the last 10 days, have yo u been in contact with someone who was confirmed or suspected to have Coronavirus/COVID-19? No / Unsure 07/02/2023 3:12 PM CDT documented as of this encounter Plan of Treatment Not on file documented as of this encounter Visit Diagnoses Not on filedocumented in this encounter Additional Health Concerns Infection Onset Date Last Indicated Resolved Time COVID - 19 07/13/2023 07/21/2023 07/29/2023 10:0 6 AM CDT COVID - 19 10/14/2023 10/15/2023 10/25/2023 12:1 6 AM STARCH DUMPER COVID - 19 11/08/2023 11/08/2023 11/18/2023 12:1 6 AM STARCH DUMPER COVID - 19 11/20/2023 11/20/2023 11/30/2023 12:1 6 AM STARCH DUMPER COVID - 19 01/14/2024 01/14/2024 01/14/2024 8:30 PM STARCH DUMPER C. difficile Rule-Out 02/26/2024 02/26/20242023 1:11 PM CDT COVID - 19 03/18/2024 03/18/2024 03/18/2024 3:03 PM CDT COVID - 19 03/29/2024 03/29/2024 03/29/2024 6:16 PM CDT COVID - 19 06/15/2024 06/15/2024 06/15/2024 1:07 AM CDT COVID - 19 Confirmed 06/15/2024 06/15/2024 024 12:16 AM CDT COVID - 19 09/01/2024 09/01/2024 09/01/2024 8:37 PM CDT Assessment Noted Time PHQ-9 Depression Total Score: 0 10/11/20 20 9:00 AM STARCH DUMPER documented as of this encounter Care Teams Water Team Leader Relationship Specialty Start Date End Date Baylee Barrera APRN, SALES DATA ANALYST [address] [address] PCP - General Advanced Practice Nurse 02/10/22 Flaquito Lyman MD [address] [place] [address] PCP - General Internal Medicine 02/24/24 03/17/24 Rianna Lay APRN, SALES DATA ANALYST [address] [place] [address] PCP - General Advanced Practice Nurse 03/18/24 Flaquito Lyman MD [address] [place] [address] PCP - General Internal Medicine 04/19/24 08/01/24 Marah Banerjee, [address] [place] [address] PCP - General Physician Analysis Specialist 08/02/24 10/02/24 Provider, None [place] PCP - General 10/03/24 Carlin Ceballos MD [address] [id number] Consulting Physician General Surgery 08/08/21 Chencho Benson MD [address] [address] Consulting Physician Cardiovascular Disease - Cardiology 06/15/23 05/09/25 Magdy Guzman MD #[address] [address] Consulting Physician Endocrinology 06/25/23 Maik John APRN, SALES DATA ANALYST [address] [place] [address] Nurse Practitioner Advanced Practice Nurse 12/22/22 Lidia Mar APRN, UNIT REACTOR OPERATOR [address] [place] [id number] Nurse Practitioner Advanced Practice Nurse 08/18/22 Oscar Ramírez MD [address] [id number] Consulting Physician Medical Oncology 03/27/24 documented as of this encounter
--- OUTSIDE RECORDS SUMMARY | 2025-07-08 17:58 | XMS_ITS | Encounter Summary ---
Author Organization [facility] Address [address] [place] [address] Phone Care Team Providers Care Social Media Coordinator Name Role Phone Carlin Ceballos MD Unavailable Chencho Benson MD Unavailable Magdy Rudd MD Unavailable Maik John APRN, ANTENNA SPECIALIST Unavailable [phone] Lidia Mar APRN, SHELL MACHINE OPERATOR Unavailable + [phone] Oscar Ramírez MD Unavailable [phone] Provider, None Primary Care Provider Unavailabl e Encounter Details Date Type Department Care Team (Late st Contact Info) Description 11/20/2024 Transcribe Orders [facility] HealthCare Call Center [address] [place] [address] Provider, None [place] Social History Tobacco Use Types Packs/Day Years Used Date Smoking Tobacco: Never Passive Smoke Exposure: Never Smokeless Tobacco: Never Alcohol Use Standard Drinks/Week Comments No 0 (1 standard drink = 0.6 oz pur e alcohol) [facility] Utilities Answer Date Recorded In the past 12 months has e electric, gas, oil, or water company threatened to shut off services in your home? No 04/18/2024 Social Connection and Isolation Panel Answer Date Recorded In a typical week, how many times do you talk on the phone with family, friends, or neighbors? More than three times a week 04/18/2024 How often do you get togethe r with friends or relatives? Three times a week 04/18/2024 How often do you attend chur or lutheran services? More than 4 times per year 04/18/2024 Do you belong to any clubs o r organizations such as catholic groups, unions, fraternal or athletic groups, or school groups? Patient declined 04/18/2024 How often do you attend meet ings of the clubs or organizations you belong to? Patient declined 04/18/2024 Are you , , di vorced, , never , or living with a partner? Never 04/18/2024 AUDIT-C Answer Date Recorded Q1: How often do you have a drink containing alcohol? Never 04/18/2024 Q2: How many drinks containi ng alcohol do you have on a typical day when you are drinking? Patient does not drink Q3: How often do you have si x or more drinks on one occasion? Never 04/18/2024 Overall Financial Resource Strain (CARDIA) Answe r Date Recorded How hard is it for you to pa y for the very basics like food, housing, medical care, and heating? Somewhat hard 04/18/2024 PHQ-2 Answer Date Recorded Total Score - Questions 1-9 0 02/06 [facility] - Occupational Stress Questionnaire Answer Date Recorded Do you feel stress - tense, restless, nervous, or anxious, or unable to sleep at night because your mind is troubled all the time - these days? Patient declined 04/18/2024 Exercise Vital Sign Answer Date Recorde d On average, how many days pe r week do you engage in moderate to strenuous exercise (like a brisk walk)? 3 days 04/18/2024 On average, how many minutes do you engage in exercise at this level? 20 min 04/18/2024 Hunger Vital Sign Answer Date Recorded Within the past 12 months, y ou worried that your food would run out before you got the money to buy more. Patient declined Within the past 12 months, t he food you bought just didn't last and you didn't have money to get more. Patient declined 09/2024 PRAPARE - Transportation Answer Date Re corded In the past 12 months, has l ack of transportation kept you from medical appointments or from getting medications? No 04/08 In the past 12 months, has l ack of transportation kept you from meetings, work, or from getting things needed for daily living? No 04/18/2024 Housing Stability Vital Sign Answer Mruray e Recorded In the last 12 months, was t here a time when you were not able to pay the mortgage or rent on time? Patient declined 01/25/20 24 In the last 12 months, how many places have you lived? 1 01/25/2024 In the last 12 months, was t here a time when you did not have a steady place to sleep or slept in a fpc (including now)? No 01/25/2024 Housing Stability Vital Sign Answer Murray e Recorded In the last 12 months, was t here a time when you were not able to pay the mortgage or rent on time? No 04/18/2024 In the past 12 months, how m any times have you moved where you were living? 0 04/18/2024 At any time in the past 12 m [facility], were you homeless or living in a fpc (including now)? No 04/18/2024 Education Answer Date Recorded What is the highest level of school you have completed or the highest degree you have received? 12th grade 11/16/2022 Sexually Active Control Partners Comments Not Currently None Male Comments No Sex and Gender Information Value Date Recorded Sex Assigned at Female 11/20/2023 2:58 AM QUALITY CONTROL ASSISTANT Legal Sex Female 7:58 PM CDT Gender Identity Female 11/20/2023 2:58 AM QUALITY CONTROL ASSISTANT Sexual Orientation Not on file documented as of this encounter Plan of Treatment Not on file documented as of this encounter Goals Goal Patient Goal Type Associated Problems Recent Progress Patient-Stated? Author Address worry Anxiety No Aleida Pham, [facility] Note: Goal/Objective: Increase ability to cope with anxiety and worry about physical health. Anticipated Time Frame for Goal Completion: 6 months Goal Reviewed with: patient Readiness to change: Thinking about making a change Department associated with goal: [facility] Steps to achieve goal: will identify at least two coping skills/activities/habits that have helped to manage anxiety in the past. will identify at least three new coping skills/activities/habits that may help to prevent and/or cope with anxiety. 3. will identify a plan to implement coping skills and follow this plan for two weeks and evaluate the impact on anxiety 4. Will attend individual and/or group therapy at least 1x/month at least 6 sessions Behavioral Health Behavioral Health Yes [facility]YD Note: Patient will reduce her illness anxiety symptoms over the next 30 days. documented as of this encounter Visit Diagnoses Not on filedocumented in this encounter Additional Health Concerns Assessment Noted Time PHQ-9 Depression Total Score: 0 02/24/20 24 9:38 AM CDT documented as of this encounter Care Teams Social Media Coordinator Relationship Specialty Start Date End Date Provider, None [place] PCP - General 10/03/24 Carlin Ceballos MD [address] [address] Consulting Physician General Surgery 08/08/21 Chencho Benson MD [address] [address] Consulting Physician Cardiovascular Disease - Cardiology 06/15/23 05/09/25 Magdy Guzman MD #[address] [address] Consulting Physician Endocrinology 06/25/23 Maik John APRN, ANTENNA SPECIALIST [address] [place] [address] Nurse Practitioner Advanced Practice Nurse 12/22/22 Lidia Mar APRN, SHELL MACHINE OPERATOR [address] [place] [address] Nurse Practitioner Advanced Practice Nurse 08/18/22 Oscar Ramírez MD [address] [place] [address] Consulting Physician Medical Oncology 03/27/24 documented as of this encounter
--- OUTSIDE RECORDS SUMMARY | 2025-07-08 17:58 | XMS_ITS | Encounter Summary ---
Author Organization [facility] Address [address] [place] [address] Phone Care Team Providers Care Air Conditioning Mechanic Industrial Name Role Phone Baylee Barrera APRN, NAEEM Primary Care Provid er Naveed Abdi MD Primary Care Provider [phone] Carlin Ceballos MD Unavailable [phone] Baylee Barrera APRN, EXTRUSION BENDER Primary Care Provid er Chencho Benson MD Unavailable Magdy Rudd MD Unavailable Maik John APRN, EXTRUSION BENDER Unavailable + [phone] Lidia Mar APRN, ZINC MINER BLASTING Unavailable [phone] Flaquito Lyman MD Primary Care Provider [phone] Rianna Lay APRN, EXTRUSION BENDER Primary Care Provider Flaquito Lyman MD Primary Care Provider [phone] Oscar Ramírez MD Unavailable [phone] Marah Banerjee PAC Primary Care Pro vider Provider, None Primary Care Provider Unavailabl e Encounter Details Date Type Department Care Team (Latest Contact Info) Description 09/11/2020 Transcribe Orders [facility] Admitting [address] [place] [address] Coretta De La Torre, DIGITAL PRODUCT MANAGER, EXTRUSION BENDER [address] [place] [address] Screening for lipoid disorders (Primary Dx) Social History Tobacco Use Types Packs/Day Years Used Date Smoking Tobacco: Never Smokeless Tobacco: Never Alcohol Use Standard Drinks/Week Comments No 0 (1 standard drink = 0.6 oz pur e alcohol) PHQ-2 Answer Date Recorded PHQ-2 Score 0 03/13/2020 Sexually Active Control Partners Comments Not Currently Comments No Sex and Gender Information Value Date Recorded Sex Assigned at Female 11/20/2023 2:58 AM SMALL PARTS ASSEMBLER Legal Sex Female 7:58 PM CDT Gender Identity Female 11/20/2023 2:58 AM SMALL PARTS ASSEMBLER Sexual Orientation Not on file COVID-19 Exposure Response Date Recorded In the last month, have you been in contact with someone who was confirmed or suspected to have Coronavirus / COVID-19? No / Unsure 09/11/2020 8:09 AM SMALL PARTS ASSEMBLER documented as of this encounter Plan of Treatment Not on file documented as of this encounter Results * (ABNORMAL) LIPID PANEL (09/11/2020 9:57 AM SMALL PARTS ASSEMBLER) CHOLESTEROL 209(H) <=200 mg/dL 09/11/2020 3:41 PM SMALL PARTS ASSEMBLER [facility] TRIGLYCERIDES 201(H) <150 mg/dL 09/11/2020 3:41 PM SMALL PARTS ASSEMBLER [facility] HDL CHOLESTEROL 36.5(L) >40 mg/dL 0 3:41 PM SMALL PARTS ASSEMBLER [facility] LDL 132(H) 5 - 130 mg/dL 09/11/2020 3:41 PM SMALL PARTS ASSEMBLER [facility] VLDL 40 5 - 55 mg/dL 09/11/2020 3:41 PM SMALL PARTS ASSEMBLER [facility] CHOL/HDL RATIO 5.7(H) 0.0 - 4.4 09/11/2020 3:41 PM SMALL PARTS ASSEMBLER [facility] NON-HDL CHOLESTEROL 172.5(H) <130 mg/dL 09/11/2020 3:41 PM SMALL PARTS ASSEMBLER [facility] LIPID FASTING 09/11/2020 3:41 PM SMALL PARTS ASSEMBLER [facility] Blood Venipuncture / Unknown 09/11/2020 9:57 AM SMALL PARTS ASSEMBLER 09/11/2020 10:04 AM SMALL PARTS ASSEMBLER Coretta De La Torre APRN, CNP CHEMISTRY ORDERABLES Fi nal Result [facility] [address] [place] [address] * (ABNORMAL) VITAMIN D, 25 HYDROXY TOTAL (09/11/2020 9:57 AM SMALL PARTS ASSEMBLER) VITAMIN D, 25 HYDROX 17(L) >=30 ng/mL 09/11/2020 4:19 PM SMALL PARTS ASSEMBLER [facility] Blood Venipuncture / Unknown 09/11/2020 9:57 AM SMALL PARTS ASSEMBLER 09/11/2020 10:04 AM SMALL PARTS ASSEMBLER Narrative [facility] - 09/11/2020 4:19 PM SMALL PARTS ASSEMBLER Published reference ranges for Vitamin D vary depending on time and place and method of testing, and on patient's age, sex, ethnicity and levels of other measured analytes such as parathormone, calcium and phosphorus. The result should be evaluated in conjunction with clinical findings and suspicions. [place] [employer] and Endocrine Clinical Practice Guidelines: Status Vitamin D levels (ng/mL) Deficient <=20 At risk of inadequacy 21-29 Sufficient 30-100 Centers of Disease Control and Prevention Guidelines: Status Vitamin D levels (ng/mL) Deficient <13 At risk of inadequacy 13-19 Sufficient 20-50 Possibly harmful >50 References: [place] [employer], 2010 Dietary reference intakes for calcium and vitamin D. [place]: The National Academies Press. Jack Choudhary, Hedy N, Britney ESCOBAR, et al., Evaluation, treatment, and prevention of Vitamin D deficiency: an Endocrinology Clinical Practice Guideline. JCEM 2011 96: 7 5769-1173. Buddy Muniz Lavelle Bentley, Jerry Hunt, et al., Vitamin D Status: [place], 0095-0461, [facility] data brief, no. 59, MD Mihaela: [facility] Statistics. 2010. Coretta De La Torre APRN, CNP CHEMISTRY ORDERABLES Fi nal Result [facility] [address] [place] [address] * DEHYDROEPIANDROSTERONE SULFATE (DHEA-S) (09/11/2020 9:57 AM SMALL PARTS ASSEMBLER) DHEA Sulfate 395 30 - 512 ug/dL [facility] [id number] 09/11/2020 9:21 PM SMALL PARTS ASSEMBLER [facility] Blood Venipuncture / Unknown 09/11/2020 9:57 AM SMALL PARTS ASSEMBLER 09/11/2020 10:04 AM SMALL PARTS ASSEMBLER Coretta De La Torre APRN, CNP CHEMISTRY ORDERABLES Fi nal Result Performing Organization Address [facility]/ZIP Co de Phone Number [facility] [address] [place] [address], * LUTEINIZING HORMONE (LH) (09/11/2020 9:57 AM SMALL PARTS ASSEMBLER) LH 1.1 mIU/mL [facility] [id number] 09/11/2020 9:21 PM SMALL PARTS ASSEMBLER [facility] Blood Venipuncture / Unknown 09/11/2020 9:57 AM SMALL PARTS ASSEMBLER 09/11/2020 10:04 AM SMALL PARTS ASSEMBLER Narrative [facility] - 09/11/2020 9:21 PM SMALL PARTS ASSEMBLER Normally Menstruating Females: Follicular Phase: 1.8 - 11.8 Midcycle Peak: 7.6 - 89.1 Luetal Phase: 0.6 - 14.0 Post Menopausal Females without HRT: 5.2 - 62.0 Coretta De La Torre APRN, NAEEM CHEMISTRY ORDERABLES Fi nal Result Performing Organization Address City/[facility] Co de Phone Number [facility] [address] [place] [address], [place] * FOLLICLE STIMULATING HORMONE (FSH) (09/11/2020 9:57 AM SMALL PARTS ASSEMBLER) FSH 3.6 mIU/mL [facility] [id number] 09/11/2020 9:19 PM SMALL PARTS ASSEMBLER [facility] Blood Venipuncture / Unknown 09/11/2020 9:57 AM SMALL PARTS ASSEMBLER 09/11/2020 11:16 AM SMALL PARTS ASSEMBLER Narrative [facility] - 09/11/2020 9:19 PM SMALL PARTS ASSEMBLER Normally Menstruating Females Follicular Phase 3.0 - 8.1 Mid-cycle Peak 2.6 - 16.7 Luteal Phase 1.4 - 5.5 Postmenopausal Females 26.7 - 133.4 Coretta De La Torre APRN, NAEEM CHEMISTRY ORDERABLES Fi nal Result Performing Organization Address City/[facility] Co de Phone Number [facility] [address] [place] [address], [place] * HEMOGLOBIN A1C W/ ESTIMATED GLUCOSE (09/11/2020 9:57 AM SMALL PARTS ASSEMBLER) HGB-A1C 5.3 4.0 - 6.0 % 09/11/2020 4:01 PM SMALL PARTS ASSEMBLER [facility] Est Average Glucose 105.4 mg/dL 09/11/2020 4:01 PM SMALL PARTS ASSEMBLER [facility] Blood Venipuncture / Unknown 09/11/2020 9:57 AM SMALL PARTS ASSEMBLER 09/11/2020 10:03 AM SMALL PARTS ASSEMBLER Narrative [facility] - 09/11/2020 4:01 PM SMALL PARTS ASSEMBLER HEMOGLOBIN A1C: DIABETIC PATIENTS: WELL-CONTROLLED: 6.2 - 7.0 INTERMEDIATE WELL-CONTROLLED: 7.0 - 9.0 POORLY-CONTROLLED: >9.0 Coretta De La Torre APRN, CNP CHEMISTRY ORDERABLES Fi nal Result [facility] [address] [place] [address] documented in this encounter Visit Diagnoses Diagnosis Screening for lipoid disorders- Primary documented in this encounter Additional Health Concerns Infection Onset Date Last Indicated Resolved Time Other 07/16/2020 07/16/2020 07/25/2021 11:1 6 AM CDT COVID - 19 10/21/2020 10/21/2020 10/21/2020 2:29 PM SMALL PARTS ASSEMBLER COVID - 19 10/21/2020 10/22/2020 11/11/2020 12:1 8 AM SMALL PARTS ASSEMBLER COVID - 19 09/19/2021 10/27/2021 11/16/2021 12:1 6 AM SMALL PARTS ASSEMBLER C. difficile Rule-Out 10/20/2021 10/20/20212020 12:16 AM SMALL PARTS ASSEMBLER COVID - 19 01/29/2022 01/29/2022 02/18/2022 12:1 9 AM CDT COVID - 19 03/23/2022 03/23/2022 04/12/2022 12:1 6 AM CDT COVID - 19 Confirmed 03/23/2022 03/23/2022 022 12:16 AM CDT COVID - 19 08/17/2022 08/17/2022 08/27/2022 12:1 6 AM CDT COVID - 19 09/30/2022 09/30/2022 10/10/2022 12:1 6 AM SMALL PARTS ASSEMBLER Respiratory Rule-Out 09/30/2022 09/30/2022 022 1:11 PM SMALL PARTS ASSEMBLER COVID - 19 05/27/2023 05/27/2023 05/28/2023 10:2 3 AM CDT Respiratory Rule-Out 05/27/2023 05/27/2023 023 9:17 PM CDT COVID - 19 07/13/2023 07/21/2023 07/29/2023 10:0 6 AM CDT COVID - 19 10/14/2023 10/15/2023 10/25/2023 12:1 6 AM SMALL PARTS ASSEMBLER COVID - 19 11/08/2023 11/08/2023 11/18/2023 12:1 6 AM SMALL PARTS ASSEMBLER COVID - 19 11/20/2023 11/20/2023 11/30/2023 12:1 6 AM SMALL PARTS ASSEMBLER COVID - 19 01/14/2024 01/14/2024 01/14/2024 8:30 PM SMALL PARTS ASSEMBLER C. difficile Rule-Out 02/26/2024 02/26/20242023 1:11 PM CDT COVID - 19 03/18/2024 03/18/2024 03/18/2024 3:03 PM CDT COVID - 19 03/29/2024 03/29/2024 03/29/2024 6:16 PM CDT COVID - 19 06/15/2024 06/15/2024 06/15/2024 1:07 AM CDT COVID - 19 Confirmed 06/15/2024 06/15/2024 024 12:16 AM CDT COVID - 19 09/01/2024 09/01/2024 09/01/2024 8:37 PM CDT Assessment Noted Time PHQ-9 Depression Total Score: 0 03/13/20 11:15 AM CDT documented as of this encounter Care Teams Air Conditioning Mechanic Industrial Relationship Specialty Start Date End Date Baylee Barrera APRN, EXTRUSION BENDER [address] [address] PCP - General Advanced Practice Nurse 03/13/20 Naveed Abdi MD #[address] [address] PCP - General Family Medicine 07/30/21 02/09/22 Baylee Barrera APRN, EXTRUSION BENDER #[address] [address] PCP - General Advanced Practice Nurse 02/10/22 Flaquito Lyman MD [address] [place] [address] PCP - General Internal Medicine 02/24/24 03/17/24 Rianna Lay, DIGITAL PRODUCT MANAGER, EXTRUSION BENDER [address] [place] [address] PCP - General Advanced Practice Nurse 03/18/24 Flaquito Lyman MD [address] [place] [address] PCP - General Internal Medicine 04/19/24 08/01/24 Marah Banerjee, [facility] [address] [place] [address] PCP - General Physician Construction Inspector 08/02/24 10/02/24 Provider, None [place] PCP - General 10/03/24 Carlin Ceballos MD #[address] [address] Consulting Physician General Surgery 08/08/21 Chencho Benson MD #[address] [address] Consulting Physician Cardiovascular Disease - Cardiology 06/15/23 05/09/25 Magdy Guzman MD #[address] [address] Consulting Physician Endocrinology 06/25/23 Maik John, DIGITAL PRODUCT MANAGER, EXTRUSION BENDER [address] [place] [address] Nurse Practitioner Advanced Practice Nurse 12/22/22 Lidia Mar APRN, ZINC MINER BLASTING [address] [place] [address] Nurse Practitioner Advanced Practice Nurse 08/18/22 Oscar Ramírez MD [address] [place] [address] Consulting Physician Medical Oncology 03/27/24 documented as of this encounter
--- OUTSIDE RECORDS SUMMARY | 2025-07-08 17:58 | XMS_ITS | Clinical Summary ---
Author Organization [facility] Address [address] [place] [address] Care Team Providers Care Tactical Air Defense Controller Name Role Phone Jam Arroyo MD Primary Care Provider [phone] Source Comments [facility],non-owned Affiliates and Associated Physician Practices is amultiple site organization consisting of ambulatory clinics and hospital sitesin [place], [place], [place] and [place]. This disclosure is being madepursuant to the Care Everywhere program and may not contain all information available regarding this patient. Last updated [facility] Allergies No known active allergies Medications * Be aware that medications may not be up to date on this document. Alwaysverify current medications with the patient. selenium sulfide (SELSUN) 2.5 % lotion 118 mL 3 06/03/2017 Active spironolactone (ALDACTONE) 50 MG tablet 60 tablet 2 06/03/2017 Active Family History Medical History Relation Name Comments Hypertension Father Hypertension Mother Diabetes - Type 2 Paternal Grandfather Diabetes - Type 2 Paternal Grandmother CVA Neg Hx Cancer - Breast Neg Hx Cancer - Skin, Melanoma Neg Hx Cancer - Skin, Non Melanoma Neg Hx Eczema Neg Hx Hemophilia Neg Hx Psoriasis Neg Hx Relation Name Status Comments Father Mother Paternal Grandfather Paternal Grandmother Social History Tobacco Use Types Packs/Day Years Used Date Smoking Tobacco: Never Smokeless Tobacco: Never Tobacco Cessation:Counseling Given: Not Answered Alcohol Use Standard Drinks/Week Comments No 0 (1 standard drink = 0.6 oz pur e alcohol) Comments Unknown Sex and Gender Information Value Date Recorded Sex Assigned at Not on file Legal Sex Female 5:22 PM MEN'S FURNISHINGS SALESPERSON Gender Identity Not on file Sexual Orientation Not on file Last Filed Vital Signs Vital Sign Reading Time Taken Comments Blood Pressure 127/76 07/31/2023 9:15 PM CDT Pulse 85 07/31/2023 9:15 PM CDT Temperature 36.4 C (97.5 F) 07/31/2023 9:15 PM CDT Respiratory Rate 16 07/31/2023 9:15 PM CDT Oxygen Saturation 98% 07/31/2023 9:15 PM CDT Inhaled Oxygen Concentration - - Weight 117.9 kg (260 lb) 07/31/2023 9:15 PM CDT Height 165.1 cm (5' 5) 07/31/2023 9:15 PM CDT Body Mass Index 43.27 07/31/2023 9:15 PM CDT Plan of Treatment Health Maintenance Due Date Last Done Comments HIV SCREENING 2001 HEPATITIS C SCREENING 07/19/2004 DTAP/TDAP/TD VACCINES (1 - Tdap) 2005 HEPATITIS B VACCINE (1 of 3 - 19+ 3-dose series) 2005 PAP SMEAR 2007 HPV VACCINE (1 - 3-dose SCDM series) 2013 COVID-19 VACCINE (3 - 2023-2 5 season) 2024 02/27/2021, 01/30/2021 DEPRESSION SCREENING 11/08/2024 INFLUENZA VACCINE (#1) 2025 , 08/10/2020 ZOSTER VACCINE (1 of 2) 2036 HIB VACCINE Aged Out No longer eligi ble based on patient's age to complete this topic MENINGOCOCCAL (Group B) VACCINE SHARED DECISION-MAKING Aged Out No longer eligible based on patient's age to complete this topic MENINGOCOCCAL GROUPS A/C/Y/W VACCINE Aged Out No longer eligible b ased on patient's age to complete this topic PNEUMOCOCCAL VACCINE Aged Out No long er eligible based on patient's age to complete this topic Insurance MEDICAID [employer] [facility] Care Teams Tactical Air Defense Controller Relationship Specialty Start Date End Date Jam Arroyo MD PCP - General 06/03/17
--- OUTSIDE RECORDS SUMMARY | 2025-07-08 17:58 | XMS_ITS | Encounter Summary ---
Author Organization [facility] Healthcare Address [address] [place] [address] Care Team Providers Care Erosion Control Specialist Name Role Phone Tate Amador MD Unavailable [phone] No, Physician Primary Care Provider [phone] Encounter Details Date Type Department Care Team (Late st Contact Info) Description 06/13/2025 Results Follow-Up [facility] [address] [place] [address] [address] [place] [id number] Adelita Metzger, PRACTICE OFFICE ASSOCIATE [address] [place] [address] [address] [address] [place] Pelvis W Endovaginal Social History Tobacco Use Types Packs/Day Years Used Date Smoking Tobacco: Never Passive Smoke Exposure: Past Smokeless Tobacco: Never Alcohol Use Standard Drinks/Week Comments No 0 (1 standard drink = 0.6 oz pur e alcohol) AUDIT-C Answer Date Recorded Q1: How often do you have a drink containing alcohol? Never 02/16/2025 Q2: How many drinks containi ng alcohol do you have on a typical day when you are drinking? Patient does not drink Frequency of Binge Drinking Not on file 02/06 PHQ-2 Answer Date Recorded PHQ-2 Total Score (If total score is 3 or more points, staff should administer the PHQ-9) 0 08/10/2022 Personal Safety Answer Date Recorded Have you ever been in or are you currently in a harmful physical or emotional relationship or is someone making you feel afraid or unsafe? 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 Infection Prevention will arrange screening. Please contact Infection Prevention. 06/16/2024 06/16/2024 documented as of this encounter Care Teams Erosion Control Specialist Relationship Specialty Start Date End Date No, Physician PCP - General 03/12/25 Tate Amador MD [address] [place] [address] DR LANDIS [address] [place] [id number] [place] Manager Obstetrics and Gynecology 03/17/23 documented as of this encounter
--- OUTSIDE RECORDS SUMMARY | 2025-07-08 17:58 | XMS_ITS | Clinical Summary ---
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 Expiration Date Model / Serial / Lot [email or web address] Angio-Seal Vip 6fr Closere Device [id number] - [id number] Implanted:Qty: 1 on 08/03/2023 by Zita Jones MD at [facility] [email or web address] 02/06/2024 [id number] / / [id number] Procedures Procedure Name Priority Date/Time Associated Diagnosis Comments US PELVIS W ENDOVAGINAL Routine 05/24/2025 3:12 PM CDT Pelvic and perineal pain Menometrorrhagia HEPATITIS PANEL, ACUTE Routine 03/15/2024 11:12 AM CDT Diffuse lymphadenopathy PAP, REFLEX HPV Routine 01/11/2024 11:14 AM ASSISTANT REAL ESTATE MANAGER Well woman exam from Last 3 Months or Most Recently Relevant to Health Maintenance Results * US Pelvis W Endovaginal (05/24/2025 3:12 PM CDT) Endometrial Thickness 9.0 mm&millime ters VIEWPOINT Polyp(s) 4.3 mm&millime ters VIEWPOINT Anatomical Region Laterality Modality Pelvis N/A Ultrasound 05/24/2025 3:12 PM CDT Impressions 06/05/2025 9:17 PM CDT 1. Normal size retroverted uterus with probable small 5 mm endometrial polyp. Uterus contains two small fibroids as described. 2. Normal appearing right ovary with a 12 mm mean elongated simple cyst. 3. Normal appearing left ovary with a 3.2 cm simple physiologic appearing cyst. Narrative Procedure Note Tate Amador MD - 06/05/2025 IMPRESSION: 1. Normal size retroverted uterus with probable small 5 mm endometrialpolyp. Uterus contains two small fibroids as described. 2. Normal appearing right ovary with a 12 mm mean elongated simple cyst. 3. Normal appearing left ovary with a 3.2 cm simple physiologic appearingcyst. us Adelita Metzger AUTO RADIATOR SPECIALIST IMG US PROCEDURES Final Result * Hepatitis panel, acute Blood (03/15/2024 11:12 AM CDT) Hep A IgM Nonreactive Nonreactive Hep B core IgM Nonreactive Nonreactive [facility] Hep C Ab Nonreactive Nonreactive [facility] Comment:Antibodies to HCV no t detected. Does NOT exclude the possibility of recent exposure to HCV. Current interpretive data was last revised on 22 HepBsAg Nonreactive Nonreactive [facility] Blood 03/15/2024 11:1 2 AM CDT 03/15/2024 2:50 PM CDT Leah Guzman MD LAB MICROBIOLOGY - GENERAL ORDERABLES Final Result [facility] [place] [address] * Pap, reflex HPV (01/11/2024 11:14 AM ASSISTANT REAL ESTATE MANAGER) CLINICAL INFORMATION: Sabino Mondragon Comment:None given LMP Sabino Mondragon Comment:01-07-24 Previous Pap Sabino Mondragon Comment:None given Prev. Bx Sabino Mondragon Comment:None given SOURCE: Sabino Mondragon Comment:Cervix, Endocervix Pap, specimen adequacy Sabino Mondragon Comment: Satisfactory for evaluation. Endocervical/transformation zone component present. HPV interp Sabino Mondragon Comment: Cytology Results: Negative for intraepithelial lesion or malignancy. COMMENTS Sabino Mondragon Comment: This Pap test has been evaluated with computer assisted technology. Director Of Materials Management Mikhail Kumar Comment: PCM, CT(ASCP) CT Screening Location: [place] [address] [place] [address] Comment [facility] [employer] GmbHJon Mondragon Comment: EXPLANATORY NOTE: The Pap is a screening test for cervical cancer. It is not a diagnostic test and is subject to false negative and false positive results. It is most reliable when a satisfactory sample, regularly obtained, is submitted with relevant clinical findings and history, and when the Pap result is evaluated along with historic and current clinical information. Thin prep 01/11/2024 11:1 4 AM ASSISTANT REAL ESTATE MANAGER 01/12/2024 3:24 AM ASSISTANT REAL ESTATE MANAGER us Tate Amador MD LAB CYTOLOGY ORDERABLES Fi nal Result [facility] [address] [place] [address] from Last 3 Months or Most Recently Relevant to Health Maintenance Additional Health Concerns Infection Onset Date Last Indicated MDR gram neg/ESBL Comment:Patients who received care at a healthcare facility outside of the [place] will be placed in Contact Precautions until infection or colonization with specific highly resistant bacteria can be ruled out. Infection Prevention will arrange screening. Please contact Infection Prevention. 06/16/2024 06/16/[address] [facility] CHOICE PLUS [facility] CHOICE PLUS Advance Directives For more information, please contact: [phone] * Full Code (Latest Code Status on File) Date Activated Date Inactivated Comments 03/07/2024 12:03 PM 03/07/2024 8:08 PM * Full Code Date Activated Date Inactivated Comments 03/07/2024 12:03 PM 03/07/2024 12:03 PM * Full Code Date Activated Date Inactivated Comments 03/02/2024 10:01 PM 03/03/2024 6:54 PM * Full Code Date Activated Date Inactivated Comments 02/09/2024 11:28 AM 02/09/2024 5:42 PM * Full Code Date Activated Date Inactivated Comments 12/21/2023 10:04 AM 12/21/2023 4:45 PM Care Teams Mba Intern Relationship Specialty Start Date End Date No, Physician PCP - General 03/12/25 Tate Amador MD [address] [place] [address] [place] [address] Electrolysis Needle Operator Obstetrics and Gynecology 03/17/23
--- OUTSIDE RECORDS SUMMARY | 2025-07-08 17:58 | XMS_ITS | Encounter Summary ---
Author Organization [facility] Address [address] [place] [address] Phone Care Team Providers Care Salon Designer Name Role Phone Naveed Abdi MD Primary Care Provider [phone] Carlin Ceballos MD Unavailable [phone] Baylee Barrera SOUP PERSON, SUPERVISOR HEAT TREATING Primary Care Provid er Chencho Benson MD Unavailable Magdy Rudd MD Unavailable Maik John SOUP PERSON, SUPERVISOR HEAT TREATING Unavailable + [phone] Lidia Mar APRN, PLAYGROUND OFFICIAL Unavailable + [phone] Flaquito Lyman MD Primary Care Provider [phone] Rianna Lay APRN, SUPERVISOR HEAT TREATING Primary Care Provider Flaquito Lyman MD Primary Care Provider [phone] Oscar Ramírez MD Unavailable [phone] Marah Banerjee PAC Primary Care Pro vider Provider, None Primary Care Provider Unavailabl e Reason for Visit * Reason Comments Medication Refill Encounter Details Date Type Department Care Team (Late st Contact Info) Description 10/04/2021 Refill [facility] - Family Medicine - [place] [address] [place] [address] Nelson Jones APRN, SUPERVISOR HEAT TREATING [address] [address] Medication Refill Social History Tobacco Use Types Packs/Day Years Used Date Smoking Tobacco: Never Smokeless Tobacco: Never Alcohol Use Standard Drinks/Week Comments No 0 (1 standard drink = 0.6 oz pur e alcohol) PHQ-2 Answer Date Recorded Total Score - Questions 1-9 0 02/2020 Education Answer Date Recorded What is the highest level of school you have completed or the highest degree you have received? 12th grade 05/28/2021 Sexually Active Control Partners Comments Not Currently Comments No Sex and Gender Information Value Date Recorded Sex Assigned at Female 11/20/2023 2:58 AM HEAD OF MARKETING Legal Sex Female 7:58 PM CDT Gender Identity Female 11/20/2023 2:58 AM HEAD OF MARKETING Sexual Orientation Not on file COVID-19 Exposure Response Date Recorded In the last month, have you been in contact with someone who was confirmed or suspected to have Coronavirus / COVID-19? No / Unsure 09/19/2021 8:34 AM HEAD OF MARKETING documented as of this encounter Plan of Treatment Not on file documented as of this encounter Visit Diagnoses Diagnosis Episodic tension-type headache, not intractable Episodic tension type headache documented in this encounter Additional Health Concerns Infection Onset Date Last Indicated Resolved Time COVID - 19 09/19/2021 10/27/2021 11/16/2021 12:1 6 AM HEAD OF MARKETING C. difficile Rule-Out 10/20/2021 10/20/20212020 12:16 AM HEAD OF MARKETING COVID - 19 01/29/2022 01/29/2022 02/18/2022 12:1 9 AM CDT COVID - 19 03/23/2022 03/23/2022 04/12/2022 12:1 6 AM CDT COVID - 19 Confirmed 03/23/2022 03/23/2022 022 12:16 AM CDT COVID - 19 08/17/2022 08/17/2022 08/27/2022 12:1 6 AM CDT COVID - 19 09/30/2022 09/30/2022 10/10/2022 12:1 6 AM HEAD OF MARKETING Respiratory Rule-Out 09/30/2022 09/30/2022 022 1:11 PM HEAD OF MARKETING COVID - 19 05/27/2023 05/27/2023 05/28/2023 10:2 3 AM CDT Respiratory Rule-Out 05/27/2023 05/27/2023 023 9:17 PM CDT COVID - 19 07/13/2023 07/21/2023 07/29/2023 10:0 6 AM CDT COVID - 19 10/14/2023 10/15/2023 10/25/2023 12:1 6 AM HEAD OF MARKETING COVID - 19 11/08/2023 11/08/2023 11/18/2023 12:1 6 AM HEAD OF MARKETING COVID - 19 11/20/2023 11/20/2023 11/30/2023 12:1 6 AM HEAD OF MARKETING COVID - 19 01/14/2024 01/14/2024 01/14/2024 8:30 PM HEAD OF MARKETING C. difficile Rule-Out 02/26/2024 02/26/20242023 1:11 PM CDT COVID - 19 03/18/2024 03/18/2024 03/18/2024 3:03 PM CDT COVID - 19 03/29/2024 03/29/2024 03/29/2024 6:16 PM CDT COVID - 19 06/15/2024 06/15/2024 06/15/2024 1:07 AM CDT COVID - 19 Confirmed 06/15/2024 06/15/2024 024 12:16 AM CDT COVID - 19 09/01/2024 09/01/2024 09/01/2024 8:37 PM CDT Assessment Noted Time PHQ-9 Depression Total Score: 0 10/11/20 9:00 AM HEAD OF MARKETING documented as of this encounter Care Teams Salon Designer Relationship Specialty Start Date End Date Naveed Abdi MD #[address] [address] PCP - General Family Medicine 07/30/21 02/09/22 Baylee Barrera, SOUP PERSON, SUPERVISOR HEAT TREATING #[address] [address] PCP - General Advanced Practice Nurse 02/10/22 Flaquito Lyman MD [address] [place] [address] PCP - General Internal Medicine 02/24/24 03/17/24 Rianna Lay, SOUP PERSON, SUPERVISOR HEAT TREATING [address] [place] [address] PCP - General Advanced Practice Nurse 03/18/24 Flaquito Lyman MD [address] [place] [address] PCP - General Internal Medicine 04/19/24 08/01/24 Marah Banerjee, [facility] [address] [place] [address] PCP - General Physician Camera Mechanic 08/02/24 10/02/24 Provider, None [place] PCP - General 10/03/24 Carlin Ceballos MD #[address] [address] Consulting Physician General Surgery 08/08/21 Chencho Benson MD #[address] [address] Consulting Physician Cardiovascular Disease - Cardiology 06/15/23 05/09/25 Magdy Guzman MD #[address] [phone] Consulting Physician Endocrinology 06/25/23 Maik John APRN, SUPERVISOR HEAT TREATING [address] [place] [address] Nurse Practitioner Advanced Practice Nurse 12/22/22 Lidia Mar APRN, PLAYGROUND OFFICIAL [address] [place] [address] Nurse Practitioner Advanced Practice Nurse 08/18/22 Oscar Ramírez MD [address] [place] [address] Consulting Physician Medical Oncology 03/27/24 documented as of this encounter
--- OUTSIDE RECORDS SUMMARY | 2025-07-08 17:58 | XMS_ITS | Encounter Summary ---
Author Organization [facility] Address [address] [place] [address] Phone Care Team Providers Care Fabricator Artificial Breast Name Role Phone Naveed Abdi MD Primary Care Provider [phone] Carlin Ceballos MD Unavailable [phone] Baylee Barrera STOCKBROKING DEALER, L TACKER Primary Care Provid er Chencho Benson MD Unavailable Magdy Rudd MD Unavailable Maik John STOCKBROKING DEALER, L TACKER Unavailable + [phone] Lidia Mar APRN, FILTERING MACHINE TENDER Unavailable + [phone] Flaquito Lyman MD Primary Care Provider [phone] Rianna Lay APRN, L TACKER Primary Care Provider Flaquito Lyman MD Primary Care Provider [phone] Oscar Ramírez MD Unavailable [phone] Marah Banerjee PAC Primary Care Pro vider Provider, None Primary Care Provider Unavailabl e Reason for Visit * Reason Comments Medication Refill Encounter Details Date Type Department Care Team (Late st Contact Info) Description 09/13/2021 Refill [facility] - Family Medicine - [place] [address] [place] [address] Nelson Jones APRN, NAEEM [address] [address] Medication Refill Social History Tobacco Use Types [...] Sex Assigned at Female 11/20/2023 2:58 AM RAIL CAR WELDER Legal Sex Female 7:58 PM CDT Gender Identity Female 11/20/2023 2:58 AM RAIL CAR WELDER Sexual Orientation Not on file COVID-19 Exposure Response Date Recorded In the last month, have you been in contact with someone who was confirmed or suspected to have Coronavirus / COVID-19? No / Unsure 08/27/2021 2:00 PM CDT documented as of this encounter Miscellaneous Notes * Telephone Encounter - Jeny Jones RN - 09/15/2021 10:25 AM CST Follow up 09/25/21 Medication failed the protocol, provider to review and approve the medication order if appropriate. Requested Prescriptions Pending Prescriptions Disp Refills methocarbamol (ROBAXIN) 750 MG Tablet [Pharmacy Med Name: METHOCARBAMOL 750 MG TABLET] 60 Tablet 0 Sig: TAKE 1 TABLET BY MOUTH 4 TIMES DAILY NEEDED (NECK PAIN). Not Delegated - Muscle Relaxants Protocol Failed - 09/13/2021 1:42 PM Failed - This refill cannot be delegated Passed - Visit with relevant provider in past 12 months or upcoming 90 days Recent Visits Date Type Provider Dept 08/28/21 Office Visit Nelson Jones APRN, CNP [facility] 07/30/21 Office Visit Nelson Jones APRN, NAEEM [facility] 05/28/21 Office Visit Nelson Jones APRN, NAEEM [facility] 05/13/21 Office Visit Johnny Mendoza MD [facility] 02/26/21 Office Visit Baylee Barrera APRN, NAEEM [facility] 10/21/20 Telemedicine Baylee Barrera APRN, L TACKER [facility] 10/11/20 Telemedicine Baylee Barrera APRN, L TACKER [facility] 10/01/20 Office Visit Baylee Barrera APRN, L TACKER [facility] Showing recent visits within past 365 days and meeting all other requirements Future Appointments Date Type Provider Dept 09/25/21 Appointment Nelson Jones APRN, NAEEM [facility] 10/29/21 Appointment [facility]aveed Abdi MD [facility] Showing future appointments within next 90 days and meeting all other requirements CAR WELDER documented in this encounter Plan of Treatment Not on file documented as of this encounter Visit Diagnoses Diagnosis Episodic tension-type headache, not intractable Episodic tension type headache documented in this encounter Additional Health Concerns Infection Onset Date Last Indicated Resolved Time COVID - 19 09/19/2021 10/27/2021 11/16/2021 12:1 6 AM RAIL CAR WELDER C. difficile Rule-Out 10/20/2021 10/20/20212020 12:16 AM RAIL CAR WELDER COVID - 19 01/29/2022 01/29/2022 02/18/2022 12:1 9 AM CDT COVID - 19 03/23/2022 03/23/2022 04/12/2022 12:1 6 AM CDT COVID - 19 Confirmed 03/23/2022 03/23/2022 022 12:16 AM CDT COVID - 19 08/17/2022 08/17/2022 08/27/2022 12:1 6 AM CDT COVID - 19 09/30/2022 09/30/2022 10/10/2022 12:1 6 AM RAIL CAR WELDER Respiratory Rule-Out 09/30/2022 09/30/2022 022 1:11 PM RAIL CAR WELDER COVID - 19 05/27/2023 05/27/2023 05/28/2023 10:2 3 AM CDT Respiratory Rule-Out 05/27/2023 05/27/2023 023 9:17 PM CDT COVID - 19 07/13/2023 07/21/2023 07/29/2023 10:0 6 AM CDT COVID - 19 10/14/2023 10/15/2023 10/25/2023 12:1 6 AM RAIL CAR WELDER COVID - 19 11/08/2023 11/08/2023 11/18/2023 12:1 6 AM RAIL CAR WELDER COVID - 19 11/20/2023 11/20/2023 11/30/2023 12:1 6 AM RAIL CAR WELDER COVID - 19 01/14/2024 01/14/2024 01/14/2024 8:30 PM RAIL CAR WELDER C. difficile Rule-Out 02/26/2024 02/26/20242023 1:11 PM [...] Depression Total Score: 0 10/11/20 9:00 AM RAIL CAR WELDER documented as of this encounter Care Teams Fabricator Artificial Breast Relationship Specialty Start Date End Date Naveed Abdi MD #[address] [address] PCP - General Family Medicine 07/30/21 02/09/22 Baylee Barrera STOCKBROKING DEALER, L TACKER #[address] [address] PCP - General Advanced Practice Nurse 02/10/22 Flaquito Lyman MD [address] [place] [address] PCP - General Internal Medicine 02/24/24 03/17/24 Rianna Lay, STOCKBROKING DEALER, L TACKER [address] [place] [address] PCP - General Advanced Practice Nurse 03/18/24 Flaquito Lyman MD [address] [place] [address] PCP - General Internal Medicine 04/19/24 08/01/24 Marah Banerjee [facility] [address] [place] [address] PCP - General Physician Pilot Submersible 08/02/24 10/02/24 Provider, None [place] PCP - General 10/03/24 Carlin Ceballos MD #[address] [address] Consulting Physician General Surgery 08/08/21 Chencho Benson MD #[address] [address] Consulting Physician Cardiovascular Disease - Cardiology 06/15/23 05/09/25 Magdy Guzman MD #[address] [address] Consulting Physician Endocrinology 06/25/23 Maik John APRN, L TACKER [address] [place] [address] Nurse Practitioner Advanced Practice Nurse 12/22/22 Lidia Mar APRN, FILTERING MACHINE TENDER [address] [place] [address] Nurse Practitioner Advanced Practice Nurse 08/18/22 Oscar Ramírez MD [address] [place] [address] Consulting Physician Medical Oncology 03/27/24 documented as of this encounter
--- OUTSIDE RECORDS SUMMARY | 2025-07-08 17:58 | XMS_ITS | Encounter Summary ---
Author Organization [facility] Address [address] [place] [address] Phone Care Team Providers Care Associate Justice Name Role Phone Baylee Barrera APRN, NAEEM Primary Care Provid er Naveed Abdi MD Primary Care Provider [phone] Carlin Ceballos MD Unavailable [phone] Baylee Barrera APRN, POURING CRANE OPERATOR Primary Care Provid er Chencho Benson MD Unavailable Magdy Rudd MD Unavailable Maik John APRN, POURING CRANE OPERATOR Unavailable + [phone] Lidia Mar APRN, MANAGEMENT RETAIL INTERN Unavailable + [phone] Flaquito Lyman MD Primary Care Provider [phone] Rianna Lay APRN, POURING CRANE OPERATOR Primary Care Provider Flaquito Lyman MD Primary Care Provider [phone] Oscar Ramírez MD Unavailable [phone] Marah Banerjee PAC Primary Care Pro vider Provider, None Primary Care Provider Unavailabl e Reason for Visit * Reason Comments Medication Refill Encounter Details Date Type Department Care Team (Late st Contact Info) Description 06/10/2021 Refill [facility] - Family Medicine - [place] [address] [place] [address] Baylee Barrera APRN, POURING CRANE OPERATOR [address] [phone] Medication Refill Social History Tobacco Use Types [...] Sex Assigned at Female 11/20/2023 2:58 AM SUPERVISOR INTERMEDIATES Legal Sex Female 7:58 PM CDT Gender Identity Female 11/20/2023 2:58 AM SUPERVISOR INTERMEDIATES Sexual Orientation Not on file COVID-19 Exposure Response Date Recorded In the last month, have you been in contact with someone who was confirmed or suspected to have Coronavirus / COVID-19? No / Unsure 06/11/2021 1:48 PM CDT documented as of this encounter Miscellaneous Notes * Telephone Encounter - Jeny Jones RN - 06/10/2021 10:07 AM CDT Patient needs lab work documented in this encounter Plan of Treatment Not on file documented as of this encounter Visit Diagnoses Diagnosis Vitamin D deficiency Unspecified vitamin D deficiency documented in this encounter Additional Health Concerns Infection Onset Date Last Indicated Resolved Time Other 07/16/2020 07/16/2020 07/25/2021 11:1 6 AM CDT COVID - 19 09/19/2021 10/27/2021 11/16/2021 12:1 6 AM SUPERVISOR INTERMEDIATES C. difficile Rule-Out 10/20/2021 10/20/20212020 12:16 AM SUPERVISOR INTERMEDIATES COVID - 19 01/29/2022 01/29/2022 02/18/2022 12:1 9 AM CDT COVID - 19 03/23/2022 03/23/2022 04/12/2022 12:1 6 AM CDT COVID - 19 Confirmed 03/23/2022 03/23/2022 022 12:16 AM CDT COVID - 19 08/17/2022 08/17/2022 08/27/2022 12:1 6 AM CDT COVID - 19 09/30/2022 09/30/2022 10/10/2022 12:1 6 AM SUPERVISOR INTERMEDIATES Respiratory Rule-Out 09/30/2022 09/30/2022 022 1:11 PM SUPERVISOR INTERMEDIATES COVID - 19 05/27/2023 05/27/2023 05/28/2023 10:2 3 AM CDT Respiratory Rule-Out 05/27/2023 05/27/2023 023 9:17 PM CDT COVID - 19 07/13/2023 07/21/2023 07/29/2023 10:0 6 AM CDT COVID - 19 10/14/2023 10/15/2023 10/25/2023 12:1 6 AM SUPERVISOR INTERMEDIATES COVID - 19 11/08/2023 11/08/2023 11/18/2023 12:1 6 AM SUPERVISOR INTERMEDIATES COVID - 19 11/20/2023 11/20/2023 11/30/2023 12:1 6 AM SUPERVISOR INTERMEDIATES COVID - 19 01/14/2024 01/14/2024 01/14/2024 8:30 PM SUPERVISOR INTERMEDIATES C. difficile Rule-Out 02/26/2024 02/26/20242023 1:11 PM [...] Depression Total Score: 0 10/11/20 9:00 AM SUPERVISOR INTERMEDIATES documented as of this encounter Care Teams Associate Justice Relationship Specialty Start Date End Date Baylee Barrera APRN, POURING CRANE OPERATOR #[address] [address] PCP - General Advanced Practice Nurse 03/13/20 Naveed Abdi MD #[address] [address] PCP - General Family Medicine 07/30/21 02/09/22 Baylee Barrera APRN, POURING CRANE OPERATOR #[address] [address] PCP - General Advanced Practice Nurse 02/10/22 Flaquito Lyman MD [address] [place] [address] PCP - General Internal Medicine 02/24/24 03/17/24 Rianna Lay APRN, POURING CRANE OPERATOR [address] [place] [address] PCP - General Advanced Practice Nurse 03/18/24 Flaquito Lyman MD [address] [place] [address] PCP - General Internal Medicine 04/19/24 08/01/24 Marah Banerjee, [facility] [address] [place] [address] PCP - General Physician Heavy Mobile Equipment Repairer 08/02/24 10/02/24 Provider, None [place] PCP - General 10/03/24 Carlin Ceballos MD #[address] [address] Consulting Physician General Surgery 08/08/21 Chencho Benson MD #[address] [address] Consulting Physician Cardiovascular Disease - Cardiology 06/15/23 05/09/25 Magdy Guzman MD #[address] [address] Consulting Physician Endocrinology 06/25/23 Maik John APRN, POURING CRANE OPERATOR [address] [place] [address] Nurse Practitioner Advanced Practice Nurse 12/22/22 Lidia Mar, SUPERVISOR DRILLING AND SHOOTING, MANAGEMENT RETAIL INTERN [address] [place] [address] Nurse Practitioner Advanced Practice Nurse 08/18/22 Oscar Ramírez MD [address] [place] [address] Consulting Physician Medical Oncology 03/27/24 documented as of this encounter
--- OUTSIDE RECORDS SUMMARY | 2025-07-08 17:58 | XMS_ITS | Encounter Summary ---
Author Organization [facility] Address [address] [place] [address] Phone Care Team Providers Care Truck Loader Overhead Crane Name Role Phone Baylee Barrera APRN, NAEEM Primary Care Provid er Naveed Abdi MD Primary Care Provider [phone] Carlin Ceballos MD Unavailable [phone] Baylee Barrera APRN, OCEANOGRAPHER GEOLOGICAL Primary Care Provid er Chencho Benson MD Unavailable Magdy Rudd MD Unavailable Maik John APRN, OCEANOGRAPHER GEOLOGICAL Unavailable + [phone] Lidia Mar APRN, RESOURCES REPRESENTATIVE Unavailable +[phone] Flaquito Lyman MD Primary Care Provider [phone] Rianna Lay APRN, OCEANOGRAPHER GEOLOGICAL Primary Care Provider Flaquito Lyman MD Primary Care Provider [phone] Oscar Ramírez MD Unavailable [phone] Marah Banerjee PAC Primary Care Pro vider Provider, None Primary Care Provider Unavailabl e Encounter Details Date Type Department Care Team (Late st Contact Info) Description 09/11/2020 Transcribe Orders [facility] Admitting [address] [place] [address] Coretta De La Torre, HEAVY DUTY MECHANIC, OCEANOGRAPHER GEOLOGICAL [address] [place] [address] Social History Tobacco Use Types Packs/Day Years Used Date Smoking Tobacco: Never Smokeless Tobacco: Never Alcohol Use Standard Drinks/Week Comments No 0 (1 standard drink = 0.6 oz pur e alcohol) PHQ-2 Answer Date Recorded PHQ-2 Score 0 03/13/2020 Sexually Active Control Partners Comments Not Currently Comments No Sex and Gender Information Value Date Recorded Sex Assigned at Female 11/20/2023 2:58 AM LINING BRUSHER Legal Sex Female 7:58 PM CDT Gender Identity Female 11/20/2023 2:58 AM LINING BRUSHER Sexual Orientation Not on file COVID-19 Exposure Response Date Recorded In the last month, have you been in contact with someone who was confirmed or suspected to have Coronavirus / COVID-19? No / Unsure 09/11/2020 8:09 AM LINING BRUSHER documented as of this encounter Plan of Treatment Not on file documented as of this encounter Visit Diagnoses Not on filedocumented in this encounter Additional Health Concerns Infection Onset Date Last Indicated Resolved Time Other 07/16/2020 07/16/2020 07/25/2021 11:1 6 AM CDT COVID - 19 10/21/2020 10/21/2020 10/21/2020 2:29 PM LINING BRUSHER COVID - 19 10/21/2020 10/22/2020 11/11/2020 12:1 8 AM LINING BRUSHER COVID - 19 09/19/2021 10/27/2021 11/16/2021 12:1 6 AM LINING BRUSHER C. difficile Rule-Out 10/20/2021 10/20/20212020 12:16 AM LINING BRUSHER COVID - 19 01/29/2022 01/29/2022 02/18/2022 12:1 9 AM CDT COVID - 19 03/23/2022 03/23/2022 04/12/2022 12:1 6 AM CDT COVID - 19 Confirmed 03/23/2022 03/23/2022 022 12:16 AM CDT COVID - 19 08/17/2022 08/17/2022 08/27/2022 12:1 6 AM CDT COVID - 19 09/30/2022 09/30/2022 10/10/2022 12:1 6 AM LINING BRUSHER Respiratory Rule-Out 09/30/2022 09/30/2022 022 1:11 PM LINING BRUSHER COVID - 19 05/27/2023 05/27/2023 05/28/2023 10:2 3 AM CDT Respiratory Rule-Out 05/27/2023 05/27/2023 023 9:17 PM CDT COVID - 19 07/13/2023 07/21/2023 07/29/2023 10:0 6 AM CDT COVID - 19 10/14/2023 10/15/2023 10/25/2023 12:1 6 AM LINING BRUSHER COVID - 19 11/08/2023 11/08/2023 11/18/2023 12:1 6 AM LINING BRUSHER COVID - 19 11/20/2023 11/20/2023 11/30/2023 12:1 6 AM LINING BRUSHER COVID - 19 01/14/2024 01/14/2024 01/14/2024 8:30 PM LINING BRUSHER C. difficile Rule-Out 02/26/2024 02/26/20242023 1:11 PM CDT COVID - 19 03/18/2024 03/18/2024 03/18/2024 3:03 PM CDT COVID - 19 03/29/2024 03/29/2024 03/29/2024 6:16 PM CDT COVID - 19 06/15/2024 06/15/2024 06/15/2024 1:07 AM CDT COVID - 19 Confirmed 06/15/2024 06/15/2024 024 12:16 AM CDT COVID - 19 09/01/2024 09/01/2024 09/01/2024 8:37 PM CDT Assessment Noted Time PHQ-9 Depression Total Score: 0 05/06/20 20 11:15 AM CDT documented as of this encounter Care Teams Truck Loader Overhead Crane Relationship Specialty Start Date End Date Baylee Barrera APRN, OCEANOGRAPHER GEOLOGICAL [address] [address] PCP - General Advanced Practice Nurse 03/13/20 Naveed Abdi MD [address] [address] PCP - General Family Medicine 07/30/21 02/09/22 Baylee Barrera APRN, NAEEM [address] [address] PCP - General Advanced Practice Nurse 02/10/22 Flaquito Lyman MD [address] [place] [address] PCP - General Internal Medicine 02/24/24 03/17/24 Rianna Lay APRN, OCEANOGRAPHER GEOLOGICAL [address] [place] [address] PCP - General Advanced Practice Nurse 03/18/24 Flaquito Lyman MD [address] [place] [address] PCP - General Internal Medicine 04/19/24 08/01/24 Marah Banerjee, [facility] [address] [place] [address] PCP - General Physician Insurance Billing Specialist 08/02/24 10/02/24 Provider, None [place] PCP - General 10/03/24 Carlin Ceballos MD [address] [address] Consulting Physician General Surgery 08/08/21 Chencho Benson MD [address] [address] Consulting Physician Cardiovascular Disease - Cardiology 06/15/23 05/09/25 Magdy Guzman MD #[address] [address] Consulting Physician Endocrinology 06/25/23 Maik John APRN, OCEANOGRAPHER GEOLOGICAL [address] [place] [address] Nurse Practitioner Advanced Practice Nurse 12/22/22 Lidia Mar APRN, RESOURCES REPRESENTATIVE [address] [place] [address] Nurse Practitioner Advanced Practice Nurse 08/18/22 Oscar Rmaírez MD [address] [place] [address] Consulting Physician Medical Oncology 03/27/24 documented as of this encounter
--- OUTSIDE RECORDS SUMMARY | 2025-07-08 17:58 | XMS_ITS | Encounter Summary ---
Author Organization [facility] Address [address] [place] [address] Phone Care Team Providers Care Folding Machine Tender Name Role Phone Naveed Abdi MD Primary Care Provider [phone] Carlin Ceballos MD Unavailable [phone] Baylee Barrera CHICKEN CATCHER, SMALLTALK DEVELOPER Primary Care Provid er Chencho Benson MD Unavailable Magdy Rudd MD Unavailable Maik John CHICKEN CATCHER, SMALLTALK DEVELOPER Unavailable + [phone] Lidia Mar APRN, FABRIC CUTTER Unavailable + [phone] Flaquito Lyman MD Primary Care Provider [phone] Rianna Lay APRN, SMALLTALK DEVELOPER Primary Care Provider Flaquito Lyman MD Primary Care Provider [phone] Oscar Ramírez MD Unavailable [phone] Marah Banerjee PAC Primary Care Pro vider Provider, None Primary Care Provider Unavailabl e Reason for Visit * Reason Onset Date Comments Medication Refill Medication Refill 10/14/2021 Encounter Details Date Type Department Care Team (Late st Contact Info) Description 10/14/2021 Refill [facility] - Family Medicine - [place] [address] [place] [address] Nelson Jones APRN, SMALLTALK DEVELOPER [address] [address] Medication Refill; Medication Refill Social History Tobacco Use Types [...] Sex Assigned at Female 11/20/2023 2:58 AM CLIENT INTEGRATION MANAGER Legal Sex Female 7:58 PM CDT Gender Identity Female 11/20/2023 2:58 AM CLIENT INTEGRATION MANAGER Sexual Orientation Not on file COVID-19 Exposure Response Date Recorded In the last month, have you been in contact with someone who was confirmed or suspected to have Coronavirus / COVID-19? No / Unsure 10/08/2021 9:27 AM CLIENT INTEGRATION MANAGER documented as of this encounter Miscellaneous Notes * Telephone Encounter - Naveed Abdi MD - 10/15/2021 12:27 AM CLIENT INTEGRATION MANAGER Lipid panel lab order entered. Tell her to get her fasting labs done after October 30, otherwise her insurance may not cover the lipid panel & Vit. D labs. Thanks! NT INTEGRATION MANAGER * Telephone Encounter - Lila Trivedi, RN - 10/14/2021 4:50 PM CST Please Advise Thank you, Lila RN NT INTEGRATION MANAGER documented in this encounter Plan of Treatment Not on file documented as of this encounter Results * (ABNORMAL) LIPID PANEL (01/22/2022 12:58 PM CDT) CHOLESTEROL 208(H) <=200 mg/dL 01/22/2022 2:29 PM CDT [facility] TRIGLYCERIDES 109 <150 mg/dL 01/22/2022 2:29 PM CDT [facility] HDL CHOLESTEROL 39.7(L) >40 mg/dL 2:29 PM CDT [facility] LDL 147(H) 5 - 130 mg/dL 01/22/2022 2:29 PM CDT [facility] VLDL 22 5 - 55 mg/dL 01/22/2022 2:29 PM CDT [facility] CHOL/HDL RATIO 5.2(H) 0.0 - 4.4 01/22/2022 2:29 PM CDT [facility] NON-HDL CHOLESTEROL 168.3(H) <130 mg/dL 01/22/2022 2:29 PM CDT [facility] IS THE PATIENT REQUIRED TO BE FASTING? Yes 01/22/2022 2:29 PM CDT [facility] HAS THE PATIENT BEEN FASTING? Yes 01/22/2022 2:29 PM CDT [facility] Blood Venipuncture / Unknown 01/22/2022 12:58 PM CDT 01/22/2022 2:03 PM CDT Naveed Abdi MD CHEMISTRY ORDERABLES Maddie l Result [facility] [address] [place] [address] documented in this encounter Visit Diagnoses Diagnosis Hyperlipidemia, unspecified hyperlipidemia type- Primary Vitamin D deficiency Unspecified vitamin D deficiency documented in this encounter Additional Health Concerns Infection Onset Date Last Indicated Resolved Time COVID - 19 09/19/2021 10/27/2021 11/16/2021 12:1 6 AM CLIENT INTEGRATION MANAGER C. difficile Rule-Out 10/20/2021 10/20/20212020 12:16 AM CLIENT INTEGRATION MANAGER COVID - 19 01/29/2022 01/29/2022 02/18/2022 12:1 9 AM CDT COVID - 19 03/23/2022 03/23/2022 04/12/2022 12:1 6 AM CDT COVID - 19 Confirmed 03/23/2022 03/23/2022 022 12:16 AM CDT COVID - 19 08/17/2022 08/17/2022 08/27/2022 12:1 6 AM CDT COVID - 19 09/30/2022 09/30/2022 10/10/2022 12:1 6 AM CLIENT INTEGRATION MANAGER Respiratory Rule-Out 09/30/2022 09/30/2022 022 1:11 PM CLIENT INTEGRATION MANAGER COVID - 19 05/27/2023 05/27/2023 05/28/2023 10:2 3 AM CDT Respiratory Rule-Out 05/27/2023 05/27/2023 023 9:17 PM CDT COVID - 19 07/13/2023 07/21/2023 07/29/2023 10:0 6 AM CDT COVID - 19 10/14/2023 10/15/2023 10/25/2023 12:1 6 AM CLIENT INTEGRATION MANAGER COVID - 19 11/08/2023 11/08/2023 11/18/2023 12:1 6 AM CLIENT INTEGRATION MANAGER COVID - 19 11/20/2023 11/20/2023 11/30/2023 12:1 6 AM CLIENT INTEGRATION MANAGER COVID - 19 01/14/2024 01/14/2024 01/14/2024 8:30 PM CLIENT INTEGRATION MANAGER C. difficile Rule-Out 02/26/2024 02/26/20242023 1:11 PM [...] Total Score: 0 10/11/20 20 9:00 AM CLIENT INTEGRATION MANAGER documented as of this encounter Care Teams Folding Machine Tender Relationship Specialty Start Date End Date Naveed Abdi MD #[address] [address] PCP - General Family Medicine 07/30/21 02/09/22 Baylee Barrera APRN, SMALLTALK DEVELOPER #[address] [address] PCP - General Advanced Practice Nurse 02/10/22 Flaquito Lyman MD [address] [place] [address] PCP - General Internal Medicine 02/24/24 03/17/24 Rianna Lay, CHICKEN CATCHER, SMALLTALK DEVELOPER [address] [place] [address] PCP - General Advanced Practice Nurse 03/18/24 Flaquito Lyman MD [address] [place] [address] PCP - General Internal Medicine 04/19/24 08/01/24 Marah Banerjee, [facility] [address] [place] [address] PCP - General Physician Parking Attendant 08/02/24 10/02/24 Provider, None [place] PCP - General 10/03/24 Carlin Ceballos MD #[address] [address] Consulting Physician General Surgery 08/08/21 Chencho Benson MD #[address] [address] Consulting Physician Cardiovascular Disease - Cardiology 06/15/23 05/09/25 Magdy Guzman MD #[address] [address] Consulting Physician Endocrinology 06/25/23 Maik John APRN, SMALLTALK DEVELOPER [address] [place] [address] Nurse Practitioner Advanced Practice Nurse 12/22/22 Lidia Mar APRN, FABRIC CUTTER [address] [place] [address] Nurse Practitioner Advanced Practice Nurse 08/18/22 Oscar Ramírez MD [address] [place] [address] Consulting Physician Medical Oncology 03/27/24 documented as of this encounter
--- OUTSIDE RECORDS SUMMARY | 2025-07-08 17:58 | XMS_ITS | Encounter Summary ---
Author Organization [facility] Address [address] [place] [address] Phone Care Team Providers Care Glass Technologist Name Role Phone Naveed Abdi MD Primary Care Provider [phone] Carlin Ceballos MD Unavailable [phone] Baylee Barrera HOSPITALITY MANAGER, PAINT MIXER Primary Care Provid er Chencho Benson MD Unavailable Magdy Rudd MD Unavailable Maik John HOSPITALITY MANAGER, PAINT MIXER Unavailable + [phone] Lidia Mar APRN, PACK PRESS OPERATOR Unavailable + [phone] Flaquito Lyman MD Primary Care Provider [phone] Rianna Lay APRN, PAINT MIXER Primary Care Provider Flaquito Lyman MD Primary Care Provider [phone] Oscar Ramírez MD Unavailable [phone] Marah Banerjee PAC Primary Care Pro vider Provider, None Primary Care Provider Unavailabl e Reason for Visit * Reason Comments Medication Refill Encounter Details Date Type Department Care Team (Late st Contact Info) Description 10/23/2021 Refill [facility] - Family Medicine - [place] [address] [place] [id number] Nelson Jones APRN, NAEEM [address] [address] Medication Refill Social History Tobacco Use Types [...] Sex Assigned at Female 11/20/2023 2:58 AM PHOTOGRAPHER'S MODEL Legal Sex Female 7:58 PM CDT Gender Identity Female 11/20/2023 2:58 AM PHOTOGRAPHER'S MODEL Sexual Orientation Not on file COVID-19 Exposure Response Date Recorded In the last month, have you been in contact with someone who was confirmed or suspected to have Coronavirus / COVID-19? No / Unsure 10/25/2021 7:39 AM PHOTOGRAPHER'S MODEL documented as of this encounter Miscellaneous Notes * Telephone Encounter - Tiffanie Roe RN - 10/23/2021 11:37 AM PHOTOGRAPHER'S MODEL Requested Prescriptions Pending Prescriptions Disp Refills methocarbamol (ROBAXIN) 750 MG Tablet [Pharmacy Med Name: METHOCARBAMOL 750 MG TABLET] 60 Tablet 0 Sig: TAKE 1 TABLET BY MOUTH FOUR TIMES A DAY NEEDED FOR NECK PAIN Not Delegated - Muscle Relaxants Protocol Failed - 10/23/2021 11:36 AM Failed - This refill cannot be delegated Failed - Active on medication list Passed - Visit with relevant provider in past 12 months or upcoming 90 days Recent Visits Date Type Provider Dept 10/08/21 Office Visit Naveed Abdi MD [facility] [place] 09/19/21 Telemedicine [facility]21 Office Visit Nelson Jones APRN, NAEEM [facility] 07/30/21 Office Visit Nelson Jones APRN, NAEEM [facility] 05/28/21 Office Visit Nelson Jones APRN, NAEEM [facility] 05/13/21 Office Visit Johnny Mendoza MD [facility] 02/26/21 Office Visit Baylee Barrera APRN, PAINT MIXER [facility] Showing recent visits within past 365 days and meeting all other requirements Today's Visits Date Type Provider Dept 10/23/21 Office Visit Naveed Abdi MD [facility] Showing today's visits and meeting all other requirements Future Appointments Date Type Provider Dept 11/18/21 Appointment Naveed Abdi MD [facility] Showing future appointments within next 90 days and meeting all other requirements OGRAPHER'S MODEL documented in this encounter Plan of Treatment Not on file documented as of this encounter Visit Diagnoses Diagnosis Episodic tension-type headache, not intractable Episodic tension type headache documented in this encounter Additional Health Concerns Infection Onset Date Last Indicated Resolved Time COVID - 19 09/19/2021 10/27/2021 11/16/2021 12:1 6 AM PHOTOGRAPHER'S MODEL C. difficile Rule-Out 10/20/2021 10/20/20212020 12:16 AM PHOTOGRAPHER'S MODEL COVID - 19 01/29/2022 01/29/2022 02/18/2022 12:1 9 AM CDT COVID - 19 03/23/2022 03/23/2022 04/12/2022 12:1 6 AM CDT COVID - 19 Confirmed 03/23/2022 03/23/2022 022 12:16 AM CDT COVID - 19 08/17/2022 08/17/2022 08/27/2022 12:1 6 AM CDT COVID - 19 09/30/2022 09/30/2022 10/10/2022 12:1 6 AM PHOTOGRAPHER'S MODEL Respiratory Rule-Out 09/30/2022 09/30/2022 022 1:11 PM PHOTOGRAPHER'S MODEL COVID - 19 05/27/2023 05/27/2023 05/28/2023 10:2 3 AM CDT Respiratory Rule-Out 05/27/2023 05/27/2023 023 9:17 PM CDT COVID - 19 07/13/2023 07/21/2023 07/29/2023 10:0 6 AM CDT COVID - 19 10/14/2023 10/15/2023 10/25/2023 12:1 6 AM PHOTOGRAPHER'S MODEL COVID - 19 11/08/2023 11/08/2023 11/18/2023 12:1 6 AM PHOTOGRAPHER'S MODEL COVID - 19 11/20/2023 11/20/2023 11/30/2023 12:1 6 AM PHOTOGRAPHER'S MODEL COVID - 19 01/14/2024 01/14/2024 01/14/2024 8:3 0 PM PHOTOGRAPHER'S MODEL C. difficile Rule-Out 02/26/2024 02/26/20242023 1:11 PM [...] Depression Total Score: 0 10/11/20 9:00 AM PHOTOGRAPHER'S MODEL documented as of this encounter Care Teams Glass Technologist Relationship Specialty Start Date End Date Naveed Abdi MD [address] [address] PCP - General Family Medicine 07/30/21 02/09/22 Baylee Barrera, HOSPITALITY MANAGER, PAINT MIXER #[address] [address] PCP - General Advanced Practice Nurse 02/10/22 Flaquito Lyman MD [address] [place] [address] PCP - General Internal Medicine 02/24/24 03/17/24 Rianna Lay, HOSPITALITY MANAGER, PAINT MIXER [address] [place] [address] PCP - General Advanced Practice Nurse 03/18/24 Flaquito Lyman MD [address] [place] [address] PCP - General Internal Medicine 04/19/24 08/01/24 Marah Banerjee, [facility] [address] [place] [address] PCP - General Physician Laydown Machine Operator 08/02/24 10/02/24 Provider, None [place] PCP - General 10/03/24 Carlin Ceballos MD #[address] [address] Consulting Physician General Surgery 08/08/21 Chencho Benson MD #[address] [address] Consulting Physician Cardiovascular Disease - Cardiology 06/15/23 05/09/25 Magdy Guzman MD #[address] [phone] Consulting Physician Endocrinology 06/25/23 Maik John APRN, PAINT MIXER [address] [place] [address] Nurse Practitioner Advanced Practice Nurse 12/22/22 Lidia Mar APRN, PACK PRESS OPERATOR [address] [place] [address] Nurse Practitioner Advanced Practice Nurse 08/18/22 Oscar Ramírez MD [address] [place] [address] Consulting Physician Medical Oncology 03/27/24 documented as of this encounter
--- OUTSIDE RECORDS SUMMARY | 2025-07-08 17:58 | XMS_ITS | Clinical Summary ---
Author Organization [facility] Address [address] [place] [address] Phone Care Team Providers Care Acetone Recovery Worker Name Role Phone Carlin Ceballos MD Unavailable Magdy Guzman MD Unavailable Maik John APRN, SLITTER SERVICE AND SETTER Unavailable Lidia Mar APRN, HEEL COVER SOFTENER Unavailable +- [phone] Oscar Ramírez MD Unavailable [phone] Provider, None Primary Care Provider Unavailabl e Allergies No known active allergies Medications ergocalciferol (VITAMIN D) 76647 UNIT Capsule Take 1 Capsule by mouth once a week. 12 Capsule 12/08/19 23 Active Additional Information Patient taking differently: 1,000 UnitsOral WEEKLY, Reported on 11/28/2024 clonazePAM (KlonoPIN) 0.5 MG TabletIndications:G eneralized anxiety disorder Take 1 Tablet by mouth 2 times daily as needed for Anxiety. 20 Tablet 06/30/20 24 Active aspirin EC 81 MG Tablet Delayed Response Take 81 mg by mouth daily. Active triamcinolone (KENALOG) 0.1 % Ointment Apply thin film to affected area(s) twice daily until healed. 80 g 3 08/24/20 24 Active lisinopril (PRINIVIL, ZESTRIL) 5 MG Tablet Take 1 tablet by mouth once daily 30 Tablet 09/28/20 24 Active Additional Information Patient taking differently: 10 mgOral DAILY, Reported on 11/28/2024 aluminum & magnesium hydroxide-simethico ne 200-200-20 MG/5ML SUSP 90 mL, diphenhydrAMINE 12.5 MG/5ML LIQD 31.25 mg, Lidocaine Viscous HCl 2 % SOLN 20 mL 5-10 mL by Swish & Spit route every 6 hours as needed for Irritation. for mouth/throat discomfort. Use the following amounts for each 120 mL dispensed Pharmacist Mixture Instructions *ALUM & MAG HYDROXIDE-SIMETH 200-200-20 MG/5ML PO SUSP -- 90 mL *DIPHENHYDRAMINE HCL 12.5 MG/5ML PO ELIX -- 31.25 MG *LIDOCAINE VISCOUS 2% MT SOLN -- 20 mL 120 mL 10/03/20 24 Active rosuvastatin (CRESTOR) 10 MG Tablet Take 10 mg by mouth daily. Active amoxicillin (AMOXIL) 875 MG Tablet Take 1 Tablet by mouth every 12 hours. 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 Overview (11/09/2024): Abnormal wave form on arterial doppler Pt has seen vascular; this has been worked up Negative findings; no further recommendations Normal tests, normal exam Right leg pain 08/28/2024 Overview (08/28/2024): Chronic complaint Has had multiple venous dopplers; negative for DVT Nosophobia 08/25/2024 OCD (obsessive compulsive disorder) 08/25/2024 Illness anxiety disorder 08/25/2024 Positive HARRY (antinuclear antibody) 08/08/2024 Overview (08/28/2024): This has been worked up many times RHEUM serologies otherwise negative RHEUM expects false positive or not significant finding Enlarged lymph node 03/27/2024 Allergy induced intestinal disorder 03/27/2024 Indigestion 02/24/2024 Arthralgia 02/24/2024 Overview (08/02/2024): Positive HARRY Generalized anxiety disorder 02/24/2024 Polycystic ovarian syndrome 02/24/2024 Overview (08/02/2024): [employer] Essential hypertension, benign 07/21/2023 Gastroesophageal reflux disease without esophagi tis 04/27/2022 BLAIRE (obstructive sleep apnea) 02/12/2022 Overview (08/02/2024): Followed by sleep apnea provider Pain in axilla 11/30/2021 Thyroid nodule 10/27/2021 Overview (08/02/2024): Dr Guzman History of abdominal surgery 10/27/2021 Chronic cluster headache, not intractable 2020 Hair loss 10/08/2021 Hirsutism 04/22/2021 Overview (08/24/2023): Last Assessment & Plan: Chronic affecting upper lip and abdomen, more of Hypertrichosis She has familial hair loss / alopecia Brenton's syndrome was excluded with 1 mg Dexamethasone suppression test : cortisol 0.5 on 04/23/21 Vitamin D deficiency 03/05/2021 Anxiety Hyperlipidemia Morbid obesity Positive D dimer Overview (08/28/2024): This has been worked up many times. HEME has worked this up also, does not feel that it is a concern Resolved Problems Problem Noted Date Diagnosed Date Resolved Date Cellulitis of right leg 05/28/202305/09 Sepsis 05/28/2023 05/31/2023 Crescendo angina 12/02/2022 02/24/2024 Frequent UTI 01/29/2022 02/24/2024 Rash 01/06/2022 08/24/2023 Tinnitus 01/06/2022 02/24/2024 Abdominal pain 01/06/2022 08/24/2023 Breast pain 11/30/2021 08/24/2023 Ear ringing sound, left 11/11/2021 1005/2023 Lymphocytosis 11/11/2021 02/24/2024 Intractable vomiting 10/27/2021 023 RUQ pain 10/27/2021 08/24/2023 Tinnitus of both ears 10/23/20212023 Neck pain 10/23/2021 02/24/2024 Dysphagia 10/23/2021 08/24/2023 Throat burning 10/23/2021 08/24/2023 Jaw pain 10/08/2021 02/24/2024 Loose stools 10/08/2021 08/24/2023 Skin lesion 10/08/2021 08/24/2023 Neck swelling 10/08/2021 08/24/2023 Anemia, normocytic normochromic 10/08/2021 02/24/2024 Night sweats 02/24/2024 Immunizations Immunization Administration Dates Next Due Covid-19, Mrna, Lnp-s, PF, 1 00 mcg/0.5 mL Dose (Moderna) 02/27/2021,01/30/2021 DTP Vaccine 06/08/1991, 8,01/22/1987,1986,1986 Hepatitis B Vaccine, Pediatric/adolescent 06/21/1997,03/13/1997,02/01/1997 Hib Vaccine,unspecified Formulation 01/23/1988 Influenza Vaccine, MDCK,quad rivalent, pres free 08/10/2020 Influenza Vaccine, Quadrivalent, PF 07/30/2021 MMR Vaccine 03/22/1992,10/29/1987 OPV 06/08/1991, 8,01/22/1987,1986,1986 TD VACCINE 06/09/2001 TDAP Vaccine 01/17/2022 Family History Medical History Relation Name Comments Anxiety disorder Brother Diabetes Father Valentino [place] High Cholesterol Father Valentino [place] Hypertension Father Valentino [place] Aneurysm Maternal Grandfather Emphysema Maternal Uncle Lung Cancer Maternal Uncle smoker Anxiety disorder Mother Gely [place] High Cholesterol Mother Gely [place] Hypertension Mother Gely [place] Cancer Paternal Grandfather Valentine [place] Sk in cancer Congestive Heart Failure Paternal Grandfather Valentine Ch amberlain Heart Attack Paternal Grandfather Valentine [place] Hypertension Paternal Grandfather Valentine [place] Skin Cancer Paternal Grandfather Valentine [place] Diabetes Paternal Grandmother Valentine [place] High Cholesterol Paternal Grandmother Valentine Geri n No Known Problems Son (16) Relation Name Status Comments Brother Alive Father Valentino [place] Alive Maternal Grandfather Maternal Grandmother Maternal Uncle Mother Gely [place] Alive Paternal Grandfather Valentine Glen Paternal Grandmother Valentine [place] Alive Son (16) Alive Social History Tobacco Use Types Packs/Day Years Used Date Smoking Tobacco: Never Passive Smoke Exposure: Never Smokeless Tobacco: Never Tobacco Cessation:Counseling Given: Not Answered Alcohol Use Standard Drinks/Week Comments No 0 (1 standard drink = 0.6 oz pur e alcohol) [facility] Utilities Answer Date Recorded In the past [...] week 04/18/2024 How often do you attend [facility] or sikh services? More than 4 times per year 04/18/2024 Do you belong to any clubs o r organizations such as faith groups, unions, fraternal or athletic groups, or [...] Total Score - Questions 1-9 0 02/06 [facility] - Occupational Stress Questionnaire Answer Date Recorded [...] No 04/18/2024 Housing Stability Vital Sign Answer Murray e [...] place to sleep or slept in a intermediate (including now)? No 01/25/2024 Housing Stability Vital Sign Answer Murray e Recorded In the last 12 months, was t here a time when you were not able to pay the mortgage or rent on time? No 04/18/2024 In the past 12 months, how m any times have you moved where you were living? 0 04/18/2024 At any time in the past 12 m onths, were you homeless or living in a intermediate (including now)? No 04/18/2024 Education Answer Date Recorded What is the highest level of school you have completed or the highest degree you have received? 12th grade 11/16/2022 Sexually Active Control Partners Comments Not Currently None Male Comments No Sex and Gender Information Value Date Recorded Sex Assigned at Female 11/20/2023 2:58 AM ASSISTANT BASEBALL COACH Legal Sex Female 7:58 PM CDT Gender Identity Female 11/20/2023 2:58 AM ASSISTANT BASEBALL COACH Sexual Orientation Not on file Last Filed Vital Signs Vital Sign Reading Time Taken Comments Blood Pressure 115/79 11/28/2024 3:30 PM ASSISTANT BASEBALL COACH Pulse 53 11/28/2024 3:30 PM ASSISTANT BASEBALL COACH Temperature 36.6 C (97.8 F) 11/28/2024 3:30 PM ASSISTANT BASEBALL COACH Respiratory Rate 18 11/28/2024 3:30 PM ASSISTANT BASEBALL COACH Oxygen Saturation 98% 11/28/2024 3:30 PM ASSISTANT BASEBALL COACH Inhaled Oxygen Concentration - - Weight 107.6 kg (237 lb 3.2 oz) 11/28/2024 3:30 PM ASSISTANT BASEBALL COACH Height 165.1 cm (5' 5) 11/28/2024 3:30 PM ASSISTANT BASEBALL COACH Body Mass Index 39.47 11/28/2024 3:30 PM ASSISTANT BASEBALL COACH Plan of Treatment Health Maintenance Due Date Last Done Comments Human Papillomavirus (HPV) Immunization (1 - 3-dose SCDM series) 2013 Pap Smear 08/10/2022 08/10/2019 SARS-COV-2 Immunization ( season) 2024 02/27/2021, 01/30/2021 Influenza Immunization (#1) 07/09/202507/10, 08/10/2020, 11/15/2014 Cervical Cancer Screening (CCS) 11/30/2027 HPV/Cotest 11/30/2027 11/30/2022 DTaP/Tdap/Td Immunization (7 - Td or Tdap) 01/18/2032 01/17/2022, 06/09/2001, 06/08/1991, Additional history exists Respiratory Syncytial Virus (RSV) Immunization (Adult) (1 - 1-dose 75+ series) 2061 Hepatitis B Immunization Completed 997, 03/13/1997, 02/01/1997 Hepatitis C Virus (HCV) Screening Completed 03/10/2024, 03/04/2022, 03/03/2022 Meningococcal Immunization (ACWY) Aged Out No longer eligible based on patient's age to complete this topic Pneumococcal Immunization Combined Aged Out No longer eligible based on patient's age to complete this topic Rotavirus Immunization Aged Out No lo nger eligible based on patient's age to complete this topic Goals Goal Patient Goal Type Associated Problems Recent Progress Patient-Stated? Author Address worry Anxiety No Aleida Pham, [facility] Note: Goal/Objective: Increase ability to cope with anxiety and worry about physical health. Anticipated Time Frame for Goal Completion: 6 months Goal Reviewed with: patient Readiness to change: Thinking about making a change Department associated with goal: [facility] Steps to achieve goal: [...] anxiety symptoms over the next 30 days. Procedures Procedure Name Priority Date/Time Associated Diagnosis Comments HEPATITIS C ANTIBODY Routine 03/10/2024 12:43 PM CDT Concern about STD in female without diagnosis from Last 3 Months or Most Recently Relevant to Health Maintenance Results * HEPATITIS C ANTIBODY (03/10/2024 12:43 PM CDT) hepatitis C antibody 0.32 <1 S/CO 03/11/2024 12:17 AM CDT [facility] Comment: Signal/Cutoff ratio < 0.79 is Nondetected Signal/Cutoff ratio 0.80-0.99 is Grayzone Signal/Cutoff ratio > 0.99 is Detected Supplemental assays are recommended if signal/cutoff ratio is >/=1.00. Signal/cutoff ratio result >/= 5.00 is 97% predictive of positivity for recombinant immunoblot assay (RIBA) and will be reported to the [place] Department of Public [facility] as required. Blood Venipuncture / Unknown 03/10/2024 12:43 PM CDT 03/10/2024 1:17 PM CDT Marah Banerjee PAC CHEMISTRY ORDERAB LES Final Result [facility] [address] [place] [address], [place] from Last 3 Months or Most Recently Relevant to Health Maintenance Insurance [facility] Advance Directives Documents on File Type Date Recorded Patient Outcomes Analyst Expl anation Advance Care Planning Discussion 03/18/2022 2:49 PM PROCEDURE CONSENT/UROLOGY Other Advance Directive 02/18/2022 1:17 PM MICROGEN LEVEL 2 URI NE REPORT Other Advance Directive 02/12/2022 3:47 PM MICROGEN URINE RESUL TS * Full Code (Latest Code Status on File) Date Activated Date Inactivated Comments 05/28/2023 2:12 AM 05/31/2023 4:29 PM CPR-Full John atment: FULL ARREST: Attempt Resuscitation/CPR wit intubation and mechanical ventilation. PRE-ARREST: Use entire range of life support measures to stabilize the patient. * Full Code Date Activated Date Inactivated Comments 2021 10:46 PM 07/25/2021 10:55 PM CPR-Full T reatment: FULL ARREST: Attempt Resuscitation/CPR wit intubation and mechanical ventilation. PRE-ARREST: Use entire range of life support measures to stabilize the patient. Care Teams Acetone Recovery Worker Relationship Specialty Start Date End Date Provider, None [place] PCP - General 10/03/24 Carlin Ceballos MD [address] [address] Consulting Physician General Surgery 08/08/21 Magdy Guzman MD [address] [address] Consulting Physician Endocrinology 06/25/23 Maik John APRN, SLITTER SERVICE AND SETTER [address] [place] [address] Nurse Practitioner Advanced Practice Nurse 12/22/22 Lidia Mar APRN, HEEL COVER SOFTENER [address] [place] [address] Nurse Practitioner Advanced Practice Nurse 08/18/22 Oscar Ramírez MD [address] [place] [address] Consulting Physician Medical Oncology 03/27/24
--- NOTE | 2025-07-08 18:08 | ED.URI ---
HPI - URI/Sore Throat General Chief Complaint: Upper Respiratory Infection Stated Complaint: URI symptoms Source: patient and RN notes reviewed Mode of arrival: ambulatory Limitations: no limitations History of Present Illness HPI Narrative: 39-year-old female presented for complaint of sore throat, headache, cough, and bilateral ear pressure. Onset 2 days. Endorses fever with temp 101 at onset, and has continued to have hot and cold flashes. Denies sob, wheezing, nausea, vomiting, diarrhea or lethargy. Not taking anything for symptoms. MD elicited complaint: cough Related Data Home Medications ?Medication ?Instructions ?Recorded ?Confirmed ?Last Taken ?Type ergocalciferol (vitamin D2) 1,250 1,250 mcg PO WEEKLY 07/26/23 11/06/23 Unknown History mcg (50,000 unit) capsule lisinopril 10 mg tablet 10 mg PO DAILY 07/26/23 11/06/23 Unknown History atorvastatin 80 mg tablet 80 mg PO DAILY 11/06/23 11/06/23 Unknown History aspirin 81 mg capsule mg 08/09/24 Unknown History clonazepam 0.5 mg tablet mg 07/08/25 Unknown History Allergies Allergy/AdvReac Type Severity Reaction Status Date / Time poison jennifer extract Allergy Unknown Rash Verified 07/08/25 18:08 cat dander Allergy Watery Eye Verified 07/08/25 18:08 Review of Systems Review of Systems: [facility] Past Medical History Medical History No active medical problems Surgical History Surgical History History of cholecystectomy Social History Social History Substance use: never Exam Narrative: GENERAL: well-appearing EYES: conjunctivae clear ENT: Mucous membranes moist. TMs pearly pat with dull light reflex bilaterally; no tragal tenderness. Oropharynx mildly erythematous without lesions or exudate, no drooling, no hoarseness, no trismus, uvula midline. No tripod positioning, muffled voice, soft palate or pharyngeal wall bulging NECK: Supple. No lymphadenopathy CHEST: Clear to auscultation, breath sounds equal. No wheezing, rhonchi, rales, or stridor. No respiratory distress, speaks in full sentences. HEART: Regular rate and rhythm. SKIN: Warm, dry, no rash. NEURO: Alert and oriented x3. PSYCH: Normal mood and affect Course Course Emergency Course: Patient is aware of diagnosis, understands and agrees to treatment plan. Anticipatory guidance given. Patient agrees to follow-up as directed and is aware of reasons to seek care at the emergency department. Portions of this record may have been created with voice recognition software Level of Care: Express Care Visit Vital Signs Vital signs: Vital Signs Temperature 98 F 07/08/25 18:09 Pulse Rate 60 07/08/25 18:09 Respiratory Rate 18 07/08/25 18:09 Blood Pressure 130/90 07/08/25 18:09 Pulse Oximetry 100 07/08/25 18:09 Oxygen Delivery Room Air 07/08/25 18:09 Temperature 98 F 07/08/25 18:09 Pulse Rate 60 07/08/25 18:09 Respiratory Rate 18 07/08/25 18:09 Blood Pressure 130/90 07/08/25 18:09 Pulse Oximetry 100 07/08/25 18:09 Oxygen Delivery Room Air 07/08/25 18:09 reviewed MDM - URI/Sore Throat MDM Narrative Medical decision making narrative: Discussed physical exam findings and neg test results. Advised supportive measures and signs/symptoms to go to the ER. Pt is appropriate for outpt treatment and f/u. Differential Diagnosis Differential diagnosis: Likely upper respiratory infection, sinusitis and viral infection Lab Data Labs: Lab Results 07/08/25 Range/Units 18:16 POC Grp A Strep Screen Negative (Negative) Discharge Plan Discharge Clinical Impression: Upper respiratory infection Patient Disposition: Home Condition: Stable Instructions: Antibiotic Form, Upper Respiratory Infection (ED) Additional Instructions: Flu and COVID negative. Rapid strep swab was negative today You will be notified in a few days if the culture comes back positive for strep, and appropriate antibiotics will be called in at that time. if symptoms are due to a viral illness, it is not treated with antibiotics. Viral symptoms can be present for up to 10-14 days. Recommendations: Flonase spray and Zyrtec for sinus congestion Cough syrup may cause drowsiness; avoid driving or take it at night time. Tylenol every 8 hours as needed for pain/fever Soft foods, cool liquids, warm tea. Gargle with warm saltwater twice a day. Chloraseptic spray and throat lozenges. Rest and stay hydrated. --Follow up with your PCP --Go to the ER immediately if you cannot swallow your saliva, trouble breathing/wheezing, throat swelling, pain is persistent and severe Patient Language: Guatemalan Prescriptions: No Action atorvastatin 80 mg tablet 80 mg PO DAILY aspirin 81 mg Capsule clonazepam 0.5 mg tablet lisinopril 10 mg tablet 10 mg PO DAILY ergocalciferol (vitamin D2) 1,250 mcg (50,000 unit) capsule 1,250 mcg PO WEEKLY Follow-up/Referrals: PHYSICIAN,ENVIRONMENTAL SERVICES COORDINATOR [Primary Care Provider, Internal Medicine] Time of Disposition: 18:26
[2025-07-08 18:09] VITALS: BP 130/90; PULSE 60; RESP 18; TEMP 36.6; O2SAT 100
[2025-07-08 18:17] LABS: EDSTREPNEGPOS1 Negative (Negative)
[2025-07-08 18:27] LABS: EDCOVIDSCREEN Negative (Negative); EDINFLUASCREEN Negative (Negative); EDINFLUBSCREEN Negative (Negative)
== END 2025-07-08 18:30 | disposition home or self-care (01) ==
PROVIDERS: Emergency Provider Nurse Practitioner Family
DX: J06.9 Acute upper respiratory infection, unspecified (principal); Z20.822 Contact with and (suspected) exposure to COVID-19
CPT/HCPCS: 87081; 87426; 87804; 87880; 99213; G0463

== ENCOUNTER 2025-07-24 19:35 | Emergency (ER) | payer OTHER, SELFPAY ==
--- OUTSIDE RECORDS SUMMARY | 2025-04-26 11:04 | XMS_ITS | Continuity of Care Document ---
Author Organization [facility] Address [address] [place] [address] [place] [address] Phone Care Team Providers Care Manager Of Software Name Role Phone Srinivasan Mota MD Unavailable [...] Copied on Encounter OFFICE/OUTPA TIENT VISIT, EST [facility], [address] [place], [address], [place] tel:[phone] [facility] HLP (chief complaint) hTN (chief complaint) anxieyt1 (chief complaint) tic bite1 (chief complaint) weight loss1 (chief complaint) Essential (primary) hypertensionGeneral ized Anxiety DisorderMixed hyperlipidemiaAbnor mal weight lossCellulitis of left arm 5 Nakul Mattson. [address], [place], [place], [address] , [place]. tel:[phone] OFFICE/OUTPA TIENT VISIT, [facility], [address] [place], [place], [address], [place] tel:[phone] [facility] HTN (chief complaint) anxiety1 (chief complaint) toothache1 (chief complaint) taste1 (chief complaint) Essential (primary) hypertensionParageu siaGeneralized Anxiety DisorderAtypical facial pain 5 Mota Srinivasan. [address], [place], [place], [address] , [place]. tel:[phone] OFFICE/OUTPA TIENT VISIT, [facility], [address] [place], [address], [place] tel:[phone] [facility] nausea1 (chief complaint) HTN (chief complaint) ParageusiaGERD w/o esophagitisEssentia l (primary) hypertension 4 Mota Srinivasan. [address], [place], [place], [address] , [place]. tel:[phone] OFFICE/OUTPA TIENT VISIT, [facility], [address] [place], [address], [place] tel:[phone] [facility] pain1 (chief complaint) HTN (chief complaint) HLP (chief complaint) anxiety1 (chief complaint) Atypical facial painGeneralized Anxiety DisorderMixed hyperlipidemiaEssen tial (primary) hypertension 4 Nakul Mattson. [address], [place], [place], [address] , [place]. tel:[phone] OFFICE/OUTPA TIENT VISIT, [facility], [address] [place], [address], [place] tel:[phone] [facility] jaw pain1 (chief complaint) Atypical facial painSialoadenitisCe rvicalgiaGERD w/o esophagitis 4 Mota Srinivasan. [address], [place], [place], [address] , [place]. tel:[phone] OFFICE/OUTPA TIENT VISIT, [facility], [address] [place], [address], [place] tel:[phone] [facility] lymph node1 (chief complaint) HLP (chief complaint) hair (chief complaint) LVH (chief complaint) anxiety1 (chief complaint) Mixed hyperlipidemiaSialo adenitisHirsutismRa ised antibody titerLymphadenopath yObstructive Sleep Apnea HypopneaGeneralized Anxiety Disorder 4 Nakul Mattson. [address], [place], [place], [address] , [place]. tel:[phone] OFFICE/OUTPA TIENT VISIT, [facility], [place], [address] [place], [address], [place] tel:[phone] [facility] tinnitus1 (chief complaint) lymph1 (chief complaint) HTN (chief complaint) d-dimer1 (chief complaint) hair1 (chief complaint) Migraine w/o aura, not intractable, w/o status migrainosusTinnitus , bilateralEssential (primary) hypertensionLymphad enopathyHirsutismRa ised antibody titer 4 Nakul Mattson. [address] [facility] [address], [place], [place], [address] , [place]. tel:[phone] Family History Family Member Type Diagnosis Age At Onset Mother Problem High cholesterol Father Problem Hypertension Brother Problem High cholesterol Mother Problem Hypertension Mother Problem kidney stone Father Problem Diabetes mellitus Brother Problem Hypertension Father Problem High cholesterol Payers Payer name Insurance type Covered constitution party ID Authoriza tion(s) [facility] CI [id number] Social History Type Description Quantity Date Captured [...] Date Complaint History Of Prese nt Illness HLP Pt has HLP Pt st opped taking crestor on her own and she is working on diet hTN Pt weaned hersel f off lisinopril and her bp is ok weight loss1 Pt has been diet and [...] spells Pt takes klonopin PRn for anxiety HTN Pt has mild HTn Pt continues [...] do MRA of renal artery by cardiology anxiety1 Pt has chronic a nxiety. Pt denies any depression or any suicidal or homicidal thought Pt is off cymbalta on her own. Pt needs klonopin refilled toothache1 Pt continues to complaint of severe toothache right lower molar and she has seen charge out clerk and dentist and all told her no tooth issue. Pt states that she feels very sensitive around the tooth and is causing daily pain taste1 Pt continue to c omplaint of metal taste in her mouth all the time .Pt is seeing ENT and she had negative nasal endoscopy Pt also is seeing GI with negative EGD Pt has negative H pylor. Pt tried reglan and omeprazole but did not help so she is off above. Pt feels chronic nausea. nausea1 Pt has chronic n ausea with [...] fine per patient. HTN Pt has HTn pt ne eds lisinopril refilled HTN Pt has HTn Pt st ates [...] Pt saw multiple dentists as well as charge out clerk as well and no tooth issue was [...] Pt saw multiple dentists as well as charge out clerk as well and no tooth issue was [...] but she has not been taking it. HTN Pt has HTN Pt ta kes lisinopril and her bp is ok. hair1 Pt has excessive hair growth around chin area Pt does not have ovarian cyst Pt was told that she has PCOS. d-dimer1 Pt has chronic e levated D-dimer without diagnosis lymph1 Pt has chronic p eriportal lymphadenopathy [...] Mental Status Date Cognitive Assessment Orientation - [place] ed to time, place, person, situation.
[2025-07-24 19:38] VITALS: BP 145/96; PULSE 60; RESP 20; TEMP 36.9; O2SAT 100
--- OUTSIDE RECORDS SUMMARY | 2025-07-24 19:38 | XMS_ITS | Encounter Summary ---
Author Organization [facility] Address [address] [place] [address] Phone Care Team Providers Care Customer Service Consultant Name Role Phone Baylee Barrera APRN, NAEEM Primary Care Provid er Navede Abdi MD Primary Care Provider [phone] Carlin Ceballos MD Unavailable [phone] Baylee Barrera APRN, GLUE SPREADING MACHINE OPERATOR Primary Care Provid er Chencho Benson MD Unavailable Magdy Rudd MD Unavailable Maik John APRN, GLUE SPREADING MACHINE OPERATOR Unavailable [phone] Lidia Mar APRN, ASSOCIATE PROFESSOR OF CRIMINAL JUSTICE Unavailable [phone] Flaquito Lyman MD Primary Care Provider [phone] Rianna Lay APRN, GLUE SPREADING MACHINE OPERATOR Primary Care Provider Flaquito Lyman MD Primary Care Provider [phone] Oscar Ramírez MD Unavailable [phone] Marah Banerjee PAC Primary Care Pro vider Provider, None Primary Care Provider Unavailabl e Reason for Visit * Reason Comments Medication Refill Encounter Details Date Type Department Care Team (Late st Contact Info) Description 06/10/2021 Refill [facility] - Family Medicine - [place] [address] [place] [address] Baylee Barrera APRN, GLUE SPREADING MACHINE OPERATOR [address] [phone] Medication Refill Social History Tobacco Use Types [...] Sex Assigned at Female 11/20/2023 2:58 AM DRAFTER DETAIL Legal Sex Female 7:58 PM CDT Gender Identity Female 11/20/2023 2:58 AM DRAFTER DETAIL Sexual Orientation Not on file COVID-19 Exposure [...] 19 09/19/2021 10/27/2021 11/16/2021 12:1 6 AM DRAFTER DETAIL C. difficile Rule-Out 10/20/2021 10/20/2021 12/20/ 2021 12:16 AM DRAFTER DETAIL COVID - 19 01/29/2022 01/29/2022 02/18/2022 12:1 9 AM CDT COVID - 19 03/23/2022 03/23/2022 04/12/2022 12:1 6 AM CDT COVID - 19 Confirmed 03/23/2022 03/23/2022 022 12:16 AM CDT COVID - 19 08/17/2022 08/17/2022 08/27/2022 12:1 6 AM CDT COVID - 19 09/30/2022 09/30/2022 10/10/2022 12:1 6 AM DRAFTER DETAIL Respiratory Rule-Out 09/30/2022 09/30/2022 022 1:11 PM DRAFTER DETAIL COVID - 19 05/27/2023 05/27/2023 05/28/2023 10:2 3 AM CDT Respiratory Rule-Out 05/27/2023 05/27/2023 023 9:17 PM CDT COVID - 19 07/13/2023 07/21/2023 07/29/2023 10:0 6 AM CDT COVID - 19 10/14/2023 10/15/2023 10/25/2023 12:1 6 AM DRAFTER DETAIL COVID - 19 11/08/2023 11/08/2023 11/18/2023 12:1 6 AM DRAFTER DETAIL COVID - 19 11/20/2023 11/20/2023 11/30/2023 12:1 6 AM DRAFTER DETAIL COVID - 19 01/14/2024 01/14/2024 01/14/2024 8:30 PM DRAFTER DETAIL C. difficile Rule-Out 02/26/2024 02/26/20242023 1:11 PM [...] Depression Total Score: 0 10/11/20 9:00 AM DRAFTER DETAIL documented as of this encounter Care Teams Customer Service Consultant Relationship Specialty Start Date End Date Baylee Barrera APRN, GLUE SPREADING MACHINE OPERATOR [address] [address] PCP - General Advanced Practice Nurse 03/13/20 Naveed Abdi MD [address] [address] PCP - General Family Medicine 07/30/21 02/09/22 Baylee Barrera APRN, GLUE SPREADING MACHINE OPERATOR [address] [address] PCP - General Advanced Practice Nurse 02/10/22 Flaquito Lyman MD [address] [place] [address] PCP - General Internal Medicine 02/24/24 03/17/24 Rianna Lay APRN, GLUE SPREADING MACHINE OPERATOR [address] [place] [address] PCP - General Advanced Practice Nurse 03/18/24 Flaquito Lyman MD [address] [place] [address] PCP - General Internal Medicine 04/19/24 08/01/24 Marah Banerjee, [facility] [address] [place] [address] PCP - General Physician Legal Researcher 08/02/24 10/02/24 Provider, None [place] PCP - General 10/03/24 Carlin Ceballos MD [address] [address] Consulting Physician General Surgery 08/08/21 Chencho Benson MD [address] [address] Consulting Physician Cardiovascular Disease - Cardiology 06/15/23 05/09/25 Magdy Guzman MD [address] [address] Consulting Physician Endocrinology 06/25/23 Maik John APRN, GLUE SPREADING MACHINE OPERATOR [address] [place] [address] Nurse Practitioner Advanced Practice Nurse 12/22/22 Lidia Mar APRN, ASSOCIATE PROFESSOR OF CRIMINAL JUSTICE [address] [place] [address] Nurse Practitioner Advanced Practice Nurse 08/18/22 Oscar Ramírez MD [address] [place] [address] Consulting Physician Medical Oncology 03/27/24 documented as of this encounter
--- OUTSIDE RECORDS SUMMARY | 2025-07-24 19:38 | XMS_ITS | Clinical Summary ---
Author Organization [facility] Address [address] [place] [address] Care Team Providers Care Jacquard Loom Card Changer Name Role Phone Jam Arroyo MD Primary Care Provider [phone] Source Comments [facility],non-owned Affiliates and Associated Physician Practices is amultiple site organization consisting of ambulatory clinics and hospital sitesin [place], [place], [place] and [place]. This disclosure is being madepursuant to the Care Everywhere program and may not contain all information available regarding this patient. Last updated 18.[facility] Allergies No known active allergies Medications * [...] on file Legal Sex Female 5:22 PM TERRITORY SALES MANAGER Gender Identity Not on file Sexual [...] VACCINE (1 - 3-dose SCDM series) 2013 DEPRESSION SCREENING 11/08/2024 COVID-19 VACCINE (3 - 2024-2 6 season) 2025 02/27/2021, 01/30/2021 INFLUENZA VACCINE (#1) 2025 , 08/10/2020 ZOSTER [...] complete this topic Insurance MEDICAID [employer] BETTER [facility] Care Teams Jacquard Loom Card Changer Relationship Specialty Start Date End Date Jam Arroyo MD PCP - General 06/03/17
--- OUTSIDE RECORDS SUMMARY | 2025-07-24 19:38 | XMS_ITS | Encounter Summary ---
Author Organization [facility] Address [address] [facility] [place] [address] Phone Care Team Providers Care Parts Processor Name Role Phone Naveed Abdi MD Primary Care Provider [phone] Carlin Ceballos MD Unavailable [phone] Baylee Barrera MOLD HOLDER, LEAD RUBY ON RAILS DEVELOPER Primary Care Provid er Chencho Benson MD Unavailable Magdy Rudd MD Unavailable Maik John MOLD HOLDER, LEAD RUBY ON RAILS DEVELOPER Unavailable + [phone] Lidia Mar APRN, FACILITIES PROJECT MANAGER Unavailable + [phone] Flaquito Lyman MD Primary Care Provider [phone] Rianna Lay APRN, LEAD RUBY ON RAILS DEVELOPER Primary Care Provider Flaquito Lyman MD Primary Care Provider [phone] Oscar Ramírez MD Unavailable [phone] Marah Banerjee PAC Primary Care Pro vider Provider, None Primary Care Provider Unavailabl e Reason for Visit * Reason Comments Medication Refill Encounter Details Date Type Department Care Team (Late st Contact Info) Description 10/23/2021 Refill [facility] - Family Medicine - [place] [address] [place] [address] Nelson Jones APRN, NAEEM [address] [address] Medication Refill Social History Tobacco Use Types [...] Sex Assigned at Female 11/20/2023 2:58 AM CEMENT TRUCK DRIVER Legal Sex Female 7:58 PM CDT Gender Identity Female 11/20/2023 2:58 AM CEMENT TRUCK DRIVER Sexual Orientation Not on file COVID-19 Exposure Response Date Recorded In the last month, have you been in contact with someone who was confirmed or suspected to have Coronavirus / COVID-19? No / Unsure 10/25/2021 7:39 AM CEMENT TRUCK DRIVER documented as of this encounter Miscellaneous Notes * Telephone Encounter - Tiffanie Roe RN - 10/23/2021 11:37 AM CEMENT TRUCK DRIVER Requested Prescriptions Pending Prescriptions Disp Refills methocarbamol [...] Dept 10/08/21 Office Visit Naveed Abdi MD [facility] 09/19/21 Telemedicine Nelson Jones APRN, CNP [facility] 08/28/21 Office Visit Nelson Jones APRN, [facility] 07/30/21 Office Visit Nelson Jones APRN, [facility] 05/28/21 Office Visit Nelson Jones APRN, NA[facility] 05/13/21 Office Visit Johnny Mendoza MD [facility] 02/26/21 Office Visit Baylee Barrera APRN, LEAD RUBY ON RAILS DEVELOPER [facility] Showing recent visits within past 365 days and meeting all other requirements Today's Visits Date Type Provider Dept 10/23/21 Office Visit Naveed Abdi MD [facility] Showing today's visits and meeting all other requirements Future Appointments Date Type Provider Dept 11/18/21 Appointment Naveed Abdi MD [facility] Showing future appointments within next 90 days and meeting all other requirements NT TRUCK DRIVER documented in this encounter Plan of Treatment Not on file documented as of this encounter Visit Diagnoses Diagnosis Episodic tension-type headache, not intractable Episodic tension type headache documented in this encounter Additional Health Concerns Infection Onset Date Last Indicated Resolved Time COVID - 19 09/19/2021 10/27/2021 11/16/2021 12:1 6 AM CEMENT TRUCK DRIVER C. difficile Rule-Out 10/20/2021 10/20/20212020 12:16 AM CEMENT TRUCK DRIVER COVID - 19 01/29/2022 01/29/2022 02/18/2022 12:1 9 AM CDT COVID - 19 03/23/2022 03/23/2022 04/12/2022 12:1 6 AM CDT COVID - 19 Confirmed 03/23/2022 03/23/2022 022 12:16 AM CDT COVID - 19 08/17/2022 08/17/2022 08/27/2022 12:1 6 AM CDT COVID - 19 09/30/2022 09/30/2022 10/10/2022 12:1 6 AM CEMENT TRUCK DRIVER Respiratory Rule-Out 09/30/2022 09/30/2022 022 1:11 PM CEMENT TRUCK DRIVER COVID - 19 05/27/2023 05/27/2023 05/28/2023 10:2 3 AM CDT Respiratory Rule-Out 05/27/2023 05/27/2023 023 9:17 PM CDT COVID - 19 07/13/2023 07/21/2023 07/29/2023 10:0 6 AM CDT COVID - 19 10/14/2023 10/15/2023 10/25/2023 12:1 6 AM CEMENT TRUCK DRIVER COVID - 19 11/08/2023 11/08/2023 11/18/2023 12:1 6 AM CEMENT TRUCK DRIVER COVID - 19 11/20/2023 11/20/2023 11/30/2023 12:1 6 AM CEMENT TRUCK DRIVER COVID - 19 01/14/2024 01/14/2024 01/14/2024 8:30 PM CEMENT TRUCK DRIVER C. difficile Rule-Out 02/26/2024 02/26/20242023 1:11 PM [...] Depression Total Score: 0 10/11/20 9:00 AM CEMENT TRUCK DRIVER documented as of this encounter Care Teams Parts Processor Relationship Specialty Start Date End Date Naveed Abdi MD [address] [address] PCP - General Family Medicine 07/30/21 02/09/22 Baylee Barrera, MOLD HOLDER, LEAD RUBY ON RAILS DEVELOPER [address] [address] PCP - General Advanced Practice Nurse 02/10/22 Flaquito Lyman MD [address] [place] [address] PCP - General Internal Medicine 02/24/24 03/17/24 Rianna Lay, MOLD HOLDER, LEAD RUBY ON RAILS DEVELOPER [address] [place] [address] PCP - General Advanced Practice Nurse 03/18/24 Flaquito Lyman MD [address] [place] [address] PCP - General Internal Medicine 04/19/24 08/01/24 Marah Banerjee, [facility] [address] [place] [address] PCP - General Physician Steel Rule Die Maker 08/02/24 10/02/24 Provider, None [place] PCP - General 10/03/24 Carlin Ceballos MD [address] [address] Consulting Physician General Surgery 08/08/21 Chencho Benson MD [address] [address] Consulting Physician Cardiovascular Disease - Cardiology 06/15/23 05/09/25 Magdy Guzman MD #[address] [address] Consulting Physician Endocrinology 06/25/23 Maik John APRN, LEAD RUBY ON RAILS DEVELOPER [address] [place] [address] Nurse Practitioner Advanced Practice Nurse 12/22/22 Lidia Mar APRN, FACILITIES PROJECT MANAGER [address] [place] [address] Nurse Practitioner Advanced Practice Nurse 08/18/22 Oscar Ramírez MD [address] [place] [address] Consulting Physician Medical Oncology 03/27/24 documented as of this encounter
--- OUTSIDE RECORDS SUMMARY | 2025-07-24 19:38 | XMS_ITS | Encounter Summary ---
Author Organization [facility] Address [address] [place] [address] Phone Care Team Providers Care Component Lab Tech Name Role Phone Naveed Abdi MD Primary Care Provider [phone] Carlin Ceballos MD Unavailable [phone] Baylee Barrera FOUNDRY HELPER, SURGICAL ATTENDANT Primary Care Provid er Chencho Benson MD Unavailable Magdy Rudd MD Unavailable Maik John FOUNDRY HELPER, SURGICAL ATTENDANT Unavailable + [phone] Lidia Mar APRN, ASPHALT BLENDER Unavailable + [phone] Flaquito Lyman MD Primary Care Provider [phone] Rianna Lay APRN, SURGICAL ATTENDANT Primary Care Provider Flaquito Lyman MD Primary Care Provider [phone] Oscar Ramírez MD Unavailable [phone] Marah Banerjee PAC Primary Care Pro vider Provider, None Primary Care Provider Unavailabl e Reason for Visit * Reason Comments Medication Refill Encounter Details Date Type Department Care Team (Late st Contact Info) Description 10/04/2021 Refill [facility] - Family Medicine - [place] [address] [place] [address] Nelson Jones APRN, SURGICAL ATTENDANT [address] [address] Medication Refill Social History Tobacco Use Types [...] Sex Assigned at Female 11/20/2023 2:58 AM E LEARNING COORDINATOR Legal Sex Female 7:58 PM CDT Gender Identity Female 11/20/2023 2:58 AM E LEARNING COORDINATOR Sexual Orientation Not on file COVID-19 Exposure Response Date Recorded In the last month, have you been in contact with someone who was confirmed or suspected to have Coronavirus / COVID-19? No / Unsure 09/19/2021 8:34 AM E LEARNING COORDINATOR documented as of this encounter Plan of Treatment Not on file documented as of this encounter Visit Diagnoses Diagnosis Episodic tension-type headache, not intractable Episodic tension type headache documented in this encounter Additional Health Concerns Infection Onset Date Last Indicated Resolved Time COVID - 19 09/19/2021 10/27/2021 11/16/2021 12:1 6 AM E LEARNING COORDINATOR C. difficile Rule-Out 10/20/2021 10/20/20212020 12:16 AM E LEARNING COORDINATOR COVID - 19 01/29/2022 01/29/2022 02/18/2022 12:1 9 AM CDT COVID - 19 03/23/2022 03/23/2022 04/12/2022 12:1 6 AM CDT COVID - 19 Confirmed 03/23/2022 03/23/2022 022 12:16 AM CDT COVID - 19 08/17/2022 08/17/2022 08/27/2022 12:1 6 AM CDT COVID - 19 09/30/2022 09/30/2022 10/10/2022 12:1 6 AM E LEARNING COORDINATOR Respiratory Rule-Out 09/30/2022 09/30/2022 022 1:11 PM E LEARNING COORDINATOR COVID - 19 05/27/2023 05/27/2023 05/28/2023 10:2 3 AM CDT Respiratory Rule-Out 05/27/2023 05/27/2023 023 9:17 PM CDT COVID - 19 07/13/2023 07/21/2023 07/29/2023 10:0 6 AM CDT COVID - 19 10/14/2023 10/15/2023 10/25/2023 12:1 6 AM E LEARNING COORDINATOR COVID - 19 11/08/2023 11/08/2023 11/18/2023 12:1 6 AM E LEARNING COORDINATOR COVID - 19 11/20/2023 11/20/2023 11/30/2023 12:1 6 AM E LEARNING COORDINATOR COVID - 19 01/14/2024 01/14/2024 01/14/2024 8:30 PM E LEARNING COORDINATOR C. difficile Rule-Out 02/26/2024 02/26/20242023 1:11 PM [...] Depression Total Score: 0 10/11/20 9:00 AM E LEARNING COORDINATOR documented as of this encounter Care Teams Component Lab Tech Relationship Specialty Start Date End Date Naveed Abdi MD #[address] [address] PCP - General Family Medicine 07/30/21 02/09/22 Baylee Barrera, FOUNDRY HELPER, SURGICAL ATTENDANT #[address] [address] PCP - General Advanced Practice Nurse 02/10/22 Flaquito Lyman MD [address] [place] [address] PCP - General Internal Medicine 02/24/24 03/17/24 Rianna Lay, FOUNDRY HELPER, SURGICAL ATTENDANT [address] [place] [address] PCP - General Advanced Practice Nurse 03/18/24 Flaquito Lyman MD [address] [place] [address] PCP - General Internal Medicine 04/19/24 08/01/24 Marah Banerjee, [facility] [address] [place] [address] PCP - General Physician Track Repair Laborer 08/02/24 10/02/24 Provider, None [place] PCP - General 10/03/24 Carlin Ceballos MD [address] [address] Consulting Physician General Surgery 08/08/21 Chencho Benson MD #[address] [address] Consulting Physician Cardiovascular Disease - Cardiology 06/15/23 05/09/25 Magdy Guzman MD #[address] [phone] Consulting Physician Endocrinology 06/25/23 Maik John APRN, SURGICAL ATTENDANT [address] [place] [address] Nurse Practitioner Advanced Practice Nurse 12/22/22 Lidia Mar APRN, ASPHALT BLENDER [address] [place] [address] Nurse Practitioner Advanced Practice Nurse 08/18/22 Oscar Ramírez MD [address] [place] [address] Consulting Physician Medical Oncology 03/27/24 documented as of this encounter
--- OUTSIDE RECORDS SUMMARY | 2025-07-24 19:38 | XMS_ITS | Encounter Summary ---
Author Organization [facility] Address [address] [place] [address] Care Team Providers Care Revenue Stamp Clerk Name Role Phone Tate Amador MD Unavailable [phone] No, Physician Primary Care Provider [phone] Encounter Details Date Type Department Care Team (Late st Contact Info) Description 06/13/2025 Results Follow-Up [facility] [address] [place] [address] [address] [place] [phone] Adelita Metzger, SCRAP CARRIER [address] [place] [address] [address] [address] [place] Pelvis W Endovaginal Social History Tobacco [...] on file Legal Sex Female 9:34 AM FAILURE ANALYSIS TECHNICIAN Gender Identity Not on file Sexual Orientation Not on file 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 Please contact Infection Prevention. 06/16/2024 06/16/2024 COVID: Suspected 07/10/2025 07/11/2025 07/11/2025 1:23 AM CDT documented as of this encounter Care Teams Revenue Stamp Clerk Relationship Specialty Start Date End Date No, Physician PCP - General 03/12/25 Tate Amador MD [address] [place] [address] [place] [id number] Golf Coach Obstetrics and Gynecology 03/17/23 documented as of this encounter
--- OUTSIDE RECORDS SUMMARY | 2025-07-24 19:38 | XMS_ITS | Encounter Summary ---
Author Organization [facility] Address [address] [place] [address] Phone Care Team Providers Care Manager Advertising Name Role Phone Carlin Ceballos MD Unavailable [phone] Chencho Benson MD Unavailable Magdy Rudd MD Unavailable Maik John APRN, TITLE SUPERVISOR Unavailable [phone] Lidia Mar APRN, METAL PATTERN MAKER Unavailable + [phone] Oscar Ramírez MD Unavailable [phone] Provider, None Primary Care Provider Unavailabl e Encounter Details Date Type Department Care Team (Late st Contact Info) Description 11/20/2024 Transcribe Orders [facility] Call [facility] [address] [place] [address] Provider, None [place] Social History Tobacco Use Types Packs/Day Years Used Date Smoking Tobacco: Never Passive Smoke Exposure: Never Smokeless Tobacco: Never Alcohol Use Standard Drinks/Week Comments No 0 (1 standard drink = 0.6 oz pur e alcohol) [facility] Utilities Answer Date Recorded In the past [...] 04/18/2024 How often do you attend chur ch or cheondoism services? More than 4 times per year 04/18/2024 Do you belong to any clubs o r organizations such as moravian groups, unions, fraternal or athletic groups, or [...] Total Score - Questions 1-9 0 02/06 [facility] - Occupational Stress [...] place to sleep or slept in a long term (including now)? No 01/25/2024 Housing Stability Vital Sign Answer Murray e Recorded In the last 12 months, was t here a time when you were not able to pay the mortgage or rent on time? No 04/18/2024 In the past 12 months, how m any times have you moved where you were living? 0 04/18/2024 At any time in the past 12 m ont, were you homeless or living in a long term (including now)? No 04/18/2024 Education Answer Date Recorded What is the highest level of school you have completed or the highest degree you have received? 12th grade 11/16/2022 Sexually Active Control Partners Comments Not Currently None Male Comments No Sex and Gender Information Value Date Recorded Sex Assigned at Female 11/20/2023 2:58 AM CUSTOMER SERVICE CASHIER Legal Sex Female 7:58 PM CDT Gender Identity Female 11/20/2023 2:58 AM CUSTOMER SERVICE CASHIER Sexual Orientation Not on file documented as of this encounter Plan of Treatment Not on file documented as of this encounter Goals Goal Patient Goal Type Associated Problems Recent Progress Patient-Stated? Author Address worry Anxiety No Aleida Pham, [facility] Note: Goal/Objective: Increase ability to cope with anxiety and worry about physical health. Anticipated Time Frame for Goal Completion: 6 months Goal Reviewed with: patient Readiness to change: Thinking about making a change Department associated with goal: [facility] Steps to achieve goal: [...] documented as of this encounter Care Teams Manager Advertising Relationship Specialty Start Date End Date Provider, None [place] PCP - General 10/03/24 Carlin Ceballos MD #[address] [address] Consulting Physician General Surgery 08/08/21 Chencho Benson MD #[address] [address] Consulting Physician Cardiovascular Disease - Cardiology 06/15/23 05/09/25 Magdy Guzman MD #[address] [address] Consulting Physician Endocrinology 06/25/23 Maik John APRN, TITLE SUPERVISOR [address] [place] [address] Nurse Practitioner Advanced Practice Nurse 12/22/22 Lidia Mar APRN, METAL PATTERN MAKER [address] [place] [address] Nurse Practitioner Advanced Practice Nurse 08/18/22 Oscar Ramírez MD [address] [place] [address] Consulting Physician Medical Oncology 03/27/24 documented as of this encounter
--- OUTSIDE RECORDS SUMMARY | 2025-07-24 19:38 | XMS_ITS | Encounter Summary ---
Author Organization [facility] Address [address] [facility] [place] [address] Phone Care Team Providers Care Network And Threat Support Specialist Name Role Phone Naveed Abdi MD Primary Care Provider [phone] Carlin Ceballos MD Unavailable [phone] Baylee Barrera DEMONSTRATOR SALES, LINEN AIDE Primary Care Provid er Chencho Benson MD Unavailable Magdy Rudd MD Unavailable Maik John DEMONSTRATOR SALES, LINEN AIDE Unavailable + [phone] Lidia Mar APRN, CHIEF SUSTAINABILITY OFFICER Unavailable + [phone] Flaquito Lyman MD Primary Care Provider [phone] Rianna Lay APRN, LINEN AIDE Primary Care Provider Flaquito Lyman MD Primary Care Provider [phone] Oscar Ramírez MD Unavailable [phone] Marah Banerjee PAC Primary Care Pro vider Provider, None Primary Care Provider Unavailabl e Reason for Visit * Reason Onset Date Comments Medication Refill Medication Refill 10/14/2021 Encounter Details Date Type Department Care Team (Late st Contact Info) Description 10/14/2021 Refill [facility] - Family Medicine - [place] [address] [place] [address] Nelson Jones APRN, LINEN AIDE [address] [address] Medication Refill; Medication Refill Social History Tobacco [...] Sex Assigned at Female 11/20/2023 2:58 AM REGIONAL CRA Legal Sex Female 7:58 PM CDT Gender Identity Female 11/20/2023 2:58 AM REGIONAL CRA Sexual Orientation Not on file COVID-19 Exposure Response Date Recorded In the last month, have you been in contact with someone who was confirmed or suspected to have Coronavirus / COVID-19? No / Unsure 10/08/2021 9:27 AM REGIONAL CRA documented as of this encounter Miscellaneous Notes * Telephone Encounter - Naveed Abdi MD - 10/15/2021 12:27 AM REGIONAL CRA Lipid panel lab order entered. Tell her to get her fasting labs done after October 30, otherwise her insurance may not cover the lipid panel & Vit. D labs. Thanks! ONAL CRA * Telephone Encounter - Lila Trivedi, RN - 10/14/2021 4:50 PM CST Please Advise Thank you, Lila METZ ONAL CRA documented in this encounter Plan of Treatment [...] - 55 mg/dL 01/22/2022 2:29 PM CDT [facility] CHOL/HDL RATIO 5.2(H) 0.0 - 4.4 01/22/2022 2:29 PM CDT [facility] NON-HDL CHOLESTEROL 168.3(H) <130 mg/dL 01/22/2022 2:29 PM CDT [facility] IS THE PATIENT REQUIRED TO BE FASTING? Yes 01/22/2022 2:29 PM CDT [facility] HAS THE PATIENT BEEN FASTING? Yes 01/22/2022 2:29 PM CDT [facility] Blood Venipuncture / Unknown 01/22/2022 12:58 PM CDT 01/22/2022 2:03 PM CDT us Naveed Abdi MD CHEMISTRY ORDERABLES Maddie l Result [facility] [address] [place] [address] documented in this encounter Visit Diagnoses Diagnosis Hyperlipidemia, unspecified hyperlipidemia type- Primary Vitamin D deficiency Unspecified vitamin D deficiency documented in this encounter Additional Health Concerns Infection Onset Date Last Indicated Resolved Time COVID - 19 09/19/2021 10/27/2021 11/16/2021 12:1 6 AM REGIONAL CRA C. difficile Rule-Out 10/20/2021 10/20/20212020 12:16 AM REGIONAL CRA COVID - 19 01/29/2022 01/29/2022 02/18/2022 12:1 9 AM CDT COVID - 19 03/23/2022 03/23/2022 04/12/2022 12:1 6 AM CDT COVID - 19 Confirmed 03/23/2022 03/23/2022 022 12:16 AM CDT COVID - 19 08/17/2022 08/17/2022 08/27/2022 12:1 6 AM CDT COVID - 19 09/30/2022 09/30/2022 10/10/2022 12:1 6 AM REGIONAL CRA Respiratory Rule-Out 09/30/2022 09/30/2022 022 1:11 PM REGIONAL CRA COVID - 19 05/27/2023 05/27/2023 05/28/2023 10:2 3 AM CDT Respiratory Rule-Out 05/27/2023 05/27/2023 023 9:17 PM CDT COVID - 19 07/13/2023 07/21/2023 07/29/2023 10:0 6 AM CDT COVID - 19 10/14/2023 10/15/2023 10/25/2023 12:1 6 AM REGIONAL CRA COVID - 19 11/08/2023 11/08/2023 11/18/2023 12:1 6 AM REGIONAL CRA COVID - 19 11/20/2023 11/20/2023 11/30/2023 12:1 6 AM REGIONAL CRA COVID - 19 01/14/2024 01/14/2024 01/14/2024 8:30 PM REGIONAL CRA C. difficile Rule-Out 02/26/2024 02/26/20242023 1:11 PM [...] Depression Total Score: 0 10/11/20 9:00 AM REGIONAL CRA documented as of this encounter Care Teams Network And Threat Support Specialist Relationship Specialty Start Date End Date Naveed Abdi MD #[address] [address] PCP - General Family Medicine 07/30/21 02/09/22 Baylee Barrera APRN, LINEN AIDE #[address] [address] PCP - General Advanced Practice Nurse 02/10/22 Flaquito Lyman MD [address] [place] [address] PCP - General Internal Medicine 02/24/24 03/17/24 Rianna Lay, DEMONSTRATOR SALES, LINEN AIDE [address] [place] [address] PCP - General Advanced Practice Nurse 03/18/24 Flaquito Lyman MD [address] [place] [address] PCP - General Internal Medicine 04/19/24 08/01/24 Marah Banerjee, [facility] [address] [place] [address] PCP - General Physician Premix Operator Concentrate 08/02/24 10/02/24 Provider, None [place] PCP - General 10/03/24 Carlin Ceballos MD #[address] [address] Consulting Physician General Surgery 08/08/21 Chencho Benson MD #[address] [address] Consulting Physician Cardiovascular Disease - Cardiology 06/15/23 05/09/25 Magdy Guzman MD #[address] [address] Consulting Physician Endocrinology 06/25/23 Maik John APRN, LINEN AIDE [address] [place] [address] Nurse Practitioner Advanced Practice Nurse 12/22/22 Lidia Mar APRN, CHIEF SUSTAINABILITY OFFICER [address] [place] [address] Nurse Practitioner Advanced Practice Nurse 08/18/22 Oscar Ramírez MD [address] [place] [address] Consulting Physician Medical Oncology 03/27/24 documented as of this encounter
--- OUTSIDE RECORDS SUMMARY | 2025-07-24 19:38 | XMS_ITS | Encounter Summary ---
Author Organization [facility] Address [address] [facility] [place] [address] Phone Care Team Providers Care Natural Gas Technician Name Role Phone Carlin Ceballos MD Unavailable [phone] Baylee Barrera HIDE CLEANER, TECHNICAL SALES MANAGER Primary Care Provid er Chencho Benson MD Unavailable Magdy Rudd MD Unavailable Maik John HIDE CLEANER, TECHNICAL SALES MANAGER Unavailable + [phone] Lidia Mar HIDE CLEANER, ANTHROPOMETRIST Unavailable + [phone] Flaquito Lyman MD Primary Care Provider [phone] Rianna Lay HIDE CLEANER, TECHNICAL SALES MANAGER Primary Care Provider Flaquito Lyman MD Primary Care Provider [phone] Oscar Ramírez MD Unavailable [phone] Marah Banerjee [facility] Primary Care Pro vider Provider, None Primary Care Provider Unavailabl e Encounter Details Date Type Department Care Team (Late st Contact Info) Description 07/01/2023 Transcribe Orders [facility] Patient Access Admitting [address] [place] [address] Provider, None [place] Social History Tobacco Use [...] Sex Assigned at Female 11/20/2023 2:58 AM TRANSFORMER TESTER Legal Sex Female 7:58 PM CDT Gender Identity Female 11/20/2023 2:58 AM TRANSFORMER TESTER Sexual Orientation Not on file COVID-19 Exposure [...] 19 10/14/2023 10/15/2023 10/25/2023 12:1 6 AM TRANSFORMER TESTER COVID - 19 11/08/2023 11/08/2023 11/18/2023 12:1 6 AM TRANSFORMER TESTER COVID - 19 11/20/2023 11/20/2023 11/30/2023 12:1 6 AM TRANSFORMER TESTER COVID - 19 01/14/2024 01/14/2024 01/14/2024 8:30 PM TRANSFORMER TESTER C. difficile Rule-Out 02/26/2024 02/26/20242023 1:11 PM [...] Depression Total Score: 0 10/11/20 9:00 AM TRANSFORMER TESTER documented as of this encounter Care Teams Natural Gas Technician Relationship Specialty Start Date End Date Baylee Barrera, HIDE CLEANER, TECHNICAL SALES MANAGER [address] [address] PCP - General Advanced Practice Nurse 02/10/22 Flaquito Lyman MD [address] [place] [address] PCP - General Internal Medicine 02/24/24 03/17/24 Rianna Lay APRN, TECHNICAL SALES MANAGER #2 [place] [address] PCP - General Advanced Practice Nurse 03/18/24 Flaquito Lyman MD [address] [place] [address] PCP - General Internal Medicine 04/19/24 08/01/24 Marah Banerjee, [facility] [address] [place] [address] PCP - General Physician Senior It Security Analyst 08/02/24 10/02/24 Provider, None [place] PCP - General 10/03/24 Carlin Ceballos MD #[address] [id number] Consulting Physician General Surgery 08/08/21 Chencho Benson MD #[address] [address] Consulting Physician Cardiovascular Disease - Cardiology 06/15/23 05/09/25 Magdy Guzman MD #[address] [address] Consulting Physician Endocrinology 06/25/23 Maik John APRN, TECHNICAL SALES MANAGER [address] [place] [address] Nurse Practitioner Advanced Practice Nurse 12/22/22 Lidia Mar APRN, ANTHROPOMETRIST [address] [place] [address] Nurse Practitioner Advanced Practice Nurse 08/18/22 Oscar Ramírez MD [address] [place] [address] Consulting Physician Medical Oncology 03/27/24 documented as of this encounter
--- OUTSIDE RECORDS SUMMARY | 2025-07-24 19:38 | XMS_ITS | Encounter Summary ---
Author Organization [facility] Address [address] [facility] [place] [address] Phone Care Team Providers Care Nuclear Supervising Operator Name Role Phone Naveed Abdi MD Primary Care Provider [phone] Carlin Ceballos MD Unavailable [phone] Baylee Barrera RECEIVING OPERATOR, PROPERTY INSPECTOR Primary Care Provid er Chencho Benson MD Unavailable Magdy Rudd MD Unavailable Maik John RECEIVING OPERATOR, PROPERTY INSPECTOR Unavailable + [phone] Lidia Mar APRN, ONCOLOGY RADIATION PHYSICIAN Unavailable + [phone] Flaquito Lyman MD Primary Care Provider [phone] Rianna Lay APRN, PROPERTY INSPECTOR Primary Care Provider Flaquito Lyman MD Primary Care Provider [phone] Oscar Ramírez MD Unavailable [phone] Marah Banerjee PAC Primary Care Pro vider Provider, None Primary Care Provider Unavailabl e Reason for Visit * Reason Comments Medication Refill Encounter Details Date Type Department Care Team (Late st Contact Info) Description 09/13/2021 Refill [facility] - Family Medicine - [place] [address] [place] [address] Nelson Jones APRN, PROPERTY INSPECTOR [address] [address] Medication Refill Social History Tobacco Use Types [...] Sex Assigned at Female 11/20/2023 2:58 AM LOT ASSOCIATE Legal Sex Female 7:58 PM CDT Gender Identity Female 11/20/2023 2:58 AM LOT ASSOCIATE Sexual Orientation Not on file COVID-19 Exposure [...] Dept 08/28/21 Office Visit Nelson Jones APRN, NAEEM [facility] 07/30/21 Office Visit Nelson Jones APRN, NAEEM [facility] 05/28/21 Office Visit Nelson Jones APRN, NAEEM [facility] 05/13/21 Office Visit Johnny Mendoza MD [facility] 02/26/21 Office Visit Baylee Barrera APRN, NAEEM [facility] 10/21/20 Telemedicine Baylee Barrera APRN, PROPERTY INSPECTOR [facility] 10/11/20 Telemedicine Baylee Barrera APRN, PROPERTY INSPECTOR [facility] 10/01/20 Office Visit Baylee Barrera APRN, PROPERTY INSPECTOR [facility] Showing recent visits within past 365 days and meeting all other requirements Future Appointments Date Type Provider Dept 09/25/21 Appointment Nelson Jones APRN, NAEEM [facility] 10/29/21 Appointment [facility]aveed Abdi [facility] Showing future appointments within next 90 days and meeting all other requirements ASSOCIATE documented in this encounter Plan of Treatment Not on file documented as of this encounter Visit Diagnoses Diagnosis Episodic tension-type headache, not intractable Episodic tension type headache documented in this encounter Additional Health Concerns Infection Onset Date Last Indicated Resolved Time COVID - 19 09/19/2021 10/27/2021 11/16/2021 12:1 6 AM LOT ASSOCIATE C. difficile Rule-Out 10/20/2021 10/20/20212020 12:16 AM LOT ASSOCIATE COVID - 19 01/29/2022 01/29/2022 02/18/2022 12:1 9 AM CDT COVID - 19 03/23/2022 03/23/2022 04/12/2022 12:1 6 AM CDT COVID - 19 Confirmed 03/23/2022 03/23/2022 022 12:16 AM CDT COVID - 19 08/17/2022 08/17/2022 08/27/2022 12:1 6 AM CDT COVID - 19 09/30/2022 09/30/2022 10/10/2022 12:1 6 AM LOT ASSOCIATE Respiratory Rule-Out 09/30/2022 09/30/2022 022 1:11 PM LOT ASSOCIATE COVID - 19 05/27/2023 05/27/2023 05/28/2023 10:2 3 AM CDT Respiratory Rule-Out 05/27/2023 05/27/2023 023 9:17 PM CDT COVID - 19 07/13/2023 07/21/2023 07/29/2023 10:0 6 AM CDT COVID - 19 10/14/2023 10/15/2023 10/25/2023 12:1 6 AM LOT ASSOCIATE COVID - 19 11/08/2023 11/08/2023 11/18/2023 12:1 6 AM LOT ASSOCIATE COVID - 19 11/20/2023 11/20/2023 11/30/2023 12:1 6 AM LOT ASSOCIATE COVID - 19 01/14/2024 01/14/2024 01/14/2024 8:30 PM LOT ASSOCIATE C. difficile Rule-Out 02/26/2024 02/26/20242023 1:11 PM [...] Depression Total Score: 0 10/11/20 9:00 AM LOT ASSOCIATE documented as of this encounter Care Teams Nuclear Supervising Operator Relationship Specialty Start Date End Date Naveed Abdi MD #[address] [address] PCP - General Family Medicine 07/30/21 02/09/22 Baylee Barrera RECEIVING OPERATOR, PROPERTY INSPECTOR #[address] [address] PCP - General Advanced Practice Nurse 02/10/22 Flaquito Lyman MD [address] [place] [address] PCP - General Internal Medicine 02/24/24 03/17/24 Rianna Lay, RECEIVING OPERATOR, PROPERTY INSPECTOR [address] [place] [address] PCP - General Advanced Practice Nurse 03/18/24 Flaquito Lyman MD [address] [place] [address] PCP - General Internal Medicine 04/19/24 08/01/24 Marah Banerjee [facility] [address] [place] [address] PCP - General Physician Scientologist 08/02/24 10/02/24 Provider, None [place] PCP - General 10/03/24 Carlin Ceballos MD #[address] [address] Consulting Physician General Surgery 08/08/21 Chencho Benson MD #[address] [address] Consulting Physician Cardiovascular Disease - Cardiology 06/15/23 05/09/25 Magdy Guzman MD #[address] [address] Consulting Physician Endocrinology 06/25/23 Maik John APRN, PROPERTY INSPECTOR [address] [place] [address] Nurse Practitioner Advanced Practice Nurse 12/22/22 Lidia Mar APRN, ONCOLOGY RADIATION PHYSICIAN [address] [place] [address] Nurse Practitioner Advanced Practice Nurse 08/18/22 Oscar Ramírez MD [address] [place] [address] Consulting Physician Medical Oncology 03/27/24 documented as of this encounter
--- OUTSIDE RECORDS SUMMARY | 2025-07-24 19:38 | XMS_ITS | Encounter Summary ---
Author Organization [facility] Address [address] [place] [address] Phone Care Team Providers Care Button Sewer Hand Name Role Phone Baylee Barrera APRN, NAEEM Primary Care Provid er Naveed Abdi MD Primary Care Provider [phone] Carlin Ceballos MD Unavailable [phone] Baylee Barrera APRN, THREAD SPOOLER Primary Care Provid er Chencho Benson MD Unavailable Magyd Rudd MD Unavailable Maik John APRN, THREAD SPOOLER Unavailable + [phone] Lidia Mar APRN, REGISTRATION SCHEDULING SPECIALIST Unavailable [phone] Flaquito Lyman MD Primary Care Provider [phone] Rianna Lay APRN, THREAD SPOOLER Primary Care Provider Flaquito Lyman MD Primary Care Provider [phone] Oscar Ramírez MD Unavailable [phone] Marah Banerjee PAC Primary Care Pro vider Provider, None Primary Care Provider Unavailabl e Encounter Details Date Type Department Care Team (Latest Contact Info) Description 09/11/2020 Transcribe Orders [facility] Admitting [address] [place] [address] Coretta De La Torre, INJECTION MAINTENANCE TECHNICIAN, THREAD SPOOLER [address] [place] [address] Screening for lipoid disorders (Primary Dx) Social [...] Sex Assigned at Female 11/20/2023 2:58 AM DIRECTOR OF CONTENT MARKETING Legal Sex Female 7:58 PM CDT Gender Identity Female 11/20/2023 2:58 AM DIRECTOR OF CONTENT MARKETING Sexual Orientation Not on file COVID-19 Exposure Response Date Recorded In the last month, have you been in contact with someone who was confirmed or suspected to have Coronavirus / COVID-19? No / Unsure 09/11/2020 8:09 AM DIRECTOR OF CONTENT MARKETING documented as of this encounter Plan of Treatment Not on file documented as of this encounter Results * (ABNORMAL) LIPID PANEL (09/11/2020 9:57 AM DIRECTOR OF CONTENT MARKETING) CHOLESTEROL 209(H) <=200 mg/dL 09/11/2020 3:41 PM DIRECTOR OF CONTENT MARKETING [facility] TRIGLYCERIDES 201(H) <150 mg/dL 09/11/2020 3:41 PM DIRECTOR OF CONTENT MARKETING [facility] HDL CHOLESTEROL 36.5(L) >40 mg/dL 0 3:41 PM DIRECTOR OF CONTENT MARKETING [facility] LDL 132(H) 5 - 130 mg/dL 09/11/2020 3:41 PM DIRECTOR OF CONTENT MARKETING [facility] VLDL 40 5 - 55 mg/dL 09/11/2020 3:41 PM DIRECTOR OF CONTENT MARKETING [facility] CHOL/HDL RATIO 5.7(H) 0.0 - 4.4 09/11/2020 3:41 PM DIRECTOR OF CONTENT MARKETING [facility] NON-HDL CHOLESTEROL 172.5(H) <130 mg/dL 09/11/2020 3:41 PM DIRECTOR OF CONTENT MARKETING [facility] LIPID FASTING 09/11/2020 3:41 PM DIRECTOR OF CONTENT MARKETING [facility] Blood Venipuncture / Unknown 09/11/2020 9:57 AM DIRECTOR OF CONTENT MARKETING 09/11/2020 10:04 AM DIRECTOR OF CONTENT MARKETING Coretta De La Torre APRN, CNP CHEMISTRY ORDERABLES Fi nal Result [facility] [address] [place] [address] * (ABNORMAL) VITAMIN D, 25 HYDROXY TOTAL (09/11/2020 9:57 AM DIRECTOR OF CONTENT MARKETING) VITAMIN D, 25 HYDROX 17(L) >=30 ng/mL 09/11/2020 4:19 PM DIRECTOR OF CONTENT MARKETING [facility] Blood Venipuncture / Unknown 09/11/2020 9:57 AM DIRECTOR OF CONTENT MARKETING 09/11/2020 10:04 AM DIRECTOR OF CONTENT MARKETING Narrative [facility] - 09/11/2020 4:19 PM DIRECTOR OF CONTENT MARKETING Published reference ranges for Vitamin D vary depending on time and place and method of testing, and on patient's age, sex, ethnicity and levels of other measured analytes such as parathormone, calcium and phosphorus. The result should be evaluated in conjunction with clinical findings and suspicions. [employer] Clinical Practice Guidelines: Status Vitamin D levels (ng/mL) Deficient <=20 At risk of inadequacy 21-29 Sufficient 30-100 Centers of Disease Control and Prevention Guidelines: Status Vitamin D levels (ng/mL) Deficient <13 At risk of inadequacy 13-19 Sufficient 20-50 Possibly harmful >50 References: [employer], 2010 Dietary reference intakes for calcium and vitamin D. [place]: The National Academies Press. Jack Choudhary, Hedy N, Britney ESCOBAR, et al., Evaluation, treatment, and prevention of Vitamin D deficiency: an Endocrinology Clinical Practice Guideline. JCEM 2011 96: 7 6946-7246. Lavelle Ann C, Jerry Hunt, et al., Vitamin D Status: [place], , [facility] data brief, no. 59, MD Mihaela: [facility] for [facility] Statistics. 2010. Coretta De La Torre APRN, CNP CHEMISTRY ORDERABLES Fi nal Result Performing Organization Address City/[facility]/ZIP Co de Phone Number [facility] [address] [place] [address] * DEHYDROEPIANDROSTERONE SULFATE (DHEA-S) (09/11/2020 9:57 AM DIRECTOR OF CONTENT MARKETING) DHEA Sulfate 395 30 - 512 ug/dL [facility] ARCH [id number] A 09/11/2020 9:21 PM DIRECTOR OF CONTENT MARKETING [facility] Blood Venipuncture / Unknown 09/11/2020 9:57 AM DIRECTOR OF CONTENT MARKETING 09/11/2020 10:04 AM DIRECTOR OF CONTENT MARKETING Coretta De La Torre APRN, CNP CHEMISTRY ORDERABLES Fi nal Result Performing Organization Address City/[facility]/ZIP Co de Phone Number [facility] [address] [place] [address], * LUTEINIZING HORMONE (LH) (09/11/2020 9:57 AM DIRECTOR OF CONTENT MARKETING) LH 1.1 mIU/mL [facility] ARCH [id number] A 09/11/2020 9:21 PM DIRECTOR OF CONTENT MARKETING [facility] Blood Venipuncture / Unknown 09/11/2020 9:57 AM DIRECTOR OF CONTENT MARKETING 09/11/2020 10:04 AM DIRECTOR OF CONTENT MARKETING Narrative [facility] - 09/11/2020 9:21 PM DIRECTOR OF CONTENT MARKETING Normally Menstruating Females: Follicular Phase: 1.8 - 11.8 Midcycle Peak: 7.6 - 89.1 Luetal Phase: 0.6 - 14.0 Post Menopausal Females without HRT: 5.2 - 62.0 Coretta De La Torre APRN, NAEEM CHEMISTRY ORDERABLES Fi nal Result Performing Organization Address City/[facility] [[email or web address]] Co de Phone Number [facility] [address] [place] [address], [place] * FOLLICLE STIMULATING HORMONE (FSH) (09/11/2020 9:57 AM DIRECTOR OF CONTENT MARKETING) FSH 3.6 mIU/mL [facility] ARCH [id number] A 09/11/2020 9:19 PM DIRECTOR OF CONTENT MARKETING [facility] Blood Venipuncture / Unknown 09/11/2020 9:57 AM DIRECTOR OF CONTENT MARKETING 09/11/2020 11:16 AM DIRECTOR OF CONTENT MARKETING Narrative [facility] - 09/11/2020 9:19 PM DIRECTOR OF CONTENT MARKETING Normally Menstruating Females Follicular Phase 3.0 - 8.1 Mid-cycle Peak 2.6 - 16.7 Luteal Phase 1.4 - 5.5 Postmenopausal Females 26.7 - 133.4 Coretta De La Torre APRN, NAEEM CHEMISTRY ORDERABLES Fi nal Result Performing Organization Address City/[facility] [[email or web address]] Co de Phone Number [facility] [address] [place] [address], [place] * HEMOGLOBIN A1C W/ ESTIMATED GLUCOSE (09/11/2020 9:57 AM DIRECTOR OF CONTENT MARKETING) HGB-A1C 5.3 4.0 - 6.0 % 09/11/2020 4:01 PM DIRECTOR OF CONTENT MARKETING [facility] Est Average Glucose 105.4 mg/dL 09/11/2020 4:01 PM DIRECTOR OF CONTENT MARKETING [facility] Blood Venipuncture / Unknown 09/11/2020 9:57 AM DIRECTOR OF CONTENT MARKETING 09/11/2020 10:03 AM DIRECTOR OF CONTENT MARKETING Narrative [facility] - 09/11/2020 4:01 PM DIRECTOR OF CONTENT MARKETING HEMOGLOBIN A1C: DIABETIC PATIENTS: WELL-CONTROLLED: 6.2 - 7.0 INTERMEDIATE WELL-CONTROLLED: 7.0 - 9.0 POORLY-CONTROLLED: >9.0 Coretta De La Torre APRN, CNP CHEMISTRY ORDERABLES Fi nal Result [facility] [address] [place] [address] documented in this encounter Visit Diagnoses Diagnosis Screening for lipoid disorders- Primary documented in this encounter Additional Health Concerns Infection Onset Date Last Indicated Resolved Time Other 07/16/2020 07/16/2020 07/25/2021 11:1 6 AM CDT COVID - 19 10/21/2020 10/21/2020 10/21/2020 2:29 PM DIRECTOR OF CONTENT MARKETING COVID - 19 10/21/2020 10/22/2020 11/11/2020 12:1 8 AM DIRECTOR OF CONTENT MARKETING COVID - 19 09/19/2021 10/27/2021 11/16/2021 12:1 6 AM DIRECTOR OF CONTENT MARKETING C. difficile Rule-Out 10/20/2021 10/20/20212020 12:16 AM DIRECTOR OF CONTENT MARKETING COVID - 19 01/29/2022 01/29/2022 02/18/2022 12:1 9 AM CDT COVID - 19 03/23/2022 03/23/2022 04/12/2022 12:1 6 AM CDT COVID - 19 Confirmed 03/23/2022 03/23/2022 022 12:16 AM CDT COVID - 19 08/17/2022 08/17/2022 08/27/2022 12:1 6 AM CDT COVID - 19 09/30/2022 09/30/2022 10/10/2022 12:1 6 AM DIRECTOR OF CONTENT MARKETING Respiratory Rule-Out 09/30/2022 09/30/2022 022 1:11 PM DIRECTOR OF CONTENT MARKETING COVID - 19 05/27/2023 05/27/2023 05/28/2023 10:2 3 AM CDT Respiratory Rule-Out 05/27/2023 05/27/2023 023 9:17 PM CDT COVID - 19 07/13/2023 07/21/2023 07/29/2023 10:0 6 AM CDT COVID - 19 10/14/2023 10/15/2023 10/25/2023 12:1 6 AM DIRECTOR OF CONTENT MARKETING COVID - 19 11/08/2023 11/08/2023 11/18/2023 12:1 6 AM DIRECTOR OF CONTENT MARKETING COVID - 19 11/20/2023 11/20/2023 11/30/2023 12:1 6 AM DIRECTOR OF CONTENT MARKETING COVID - 19 01/14/2024 01/14/2024 01/14/2024 8:30 PM DIRECTOR OF CONTENT MARKETING C. difficile Rule-Out 02/26/2024 02/26/20242023 1:11 [...] documented as of this encounter Care Teams Button Sewer Hand Relationship Specialty Start Date End Date Baylee Barrera APRN, THREAD SPOOLER [address] [address] PCP - General Advanced Practice Nurse 03/13/20 Nvaeed Abdi MD #[address] [address] PCP - General Family Medicine 07/30/21 02/09/22 Baylee Barrera APRN, THREAD SPOOLER #[address] [address] PCP - General Advanced Practice Nurse 02/10/22 Flaquito Lyman MD [address] [place] [address] PCP - General Internal Medicine 02/24/24 03/17/24 Rianna Lay, INJECTION MAINTENANCE TECHNICIAN, THREAD SPOOLER [address] [place] [address] PCP - General Advanced Practice Nurse 03/18/24 Flaquito Lyman MD [address] [place] [address] PCP - General Internal Medicine 04/19/24 08/01/24 Marah Banerjee, [facility] [address] [place] [address] PCP - General Physician Keyboard Action Assembler 08/02/24 10/02/24 Provider, None [place] PCP - General 10/03/24 Carlin Ceballos MD #[address] [address] Consulting Physician General Surgery 08/08/21 Chencho Benson MD #[address] [address] Consulting Physician Cardiovascular Disease - Cardiology 06/15/23 05/09/25 Magdy Guzman MD #[address] [address] Consulting Physician Endocrinology 06/25/23 Maik John, INJECTION MAINTENANCE TECHNICIAN, THREAD SPOOLER [address] [place] [address] Nurse Practitioner Advanced Practice Nurse 12/22/22 Lidia Mar APRN, REGISTRATION SCHEDULING SPECIALIST [address] [place] [address] Nurse Practitioner Advanced Practice Nurse 08/18/22 Oscar Ramírez MD [address] [place] [address] Consulting Physician Medical Oncology 03/27/24 documented as of this encounter
--- OUTSIDE RECORDS SUMMARY | 2025-07-24 19:38 | XMS_ITS | Clinical Summary ---
Author Organization [facility] [address] Address [address] [place] [address] Phone Care Team Providers Care Health Associate Name Role Phone Tate Amador MD Unavailable [phone] No, Physician Primary Care Provider [phone] Allergies Active Allergy Reactions Criticality Noted Date Comments Cat Dander Eye irritation Low 09/10/2024 Medications lisinopriL (PRINIVIL,ZESTRI L) 5 mg tablet Take 1 tablet (5 mg total) by mouth daily Active clonazePAM (KlonoPIN) 0.5 mg tablet Take 1 tablet (0.5 mg total) by mouth as needed 01/25/2024 Active doxycycline (VIBRAMYCIN) 100 mg capsule Take 1 tablet/caps ule (100 mg total) by mouth 2 (two) times a day 20 capsule 07/11/2025 Active Active Problems Problem Noted Date Diagnosed Date Epistaxis 11/23/2024 Assessment & Plan (11/23/2024 9:47 AM DERMATOLOGY PHYSICIAN): Nasal saline spray (Simply saline, Little Remedies, [place], [place]) 2 second sprays or 2 squeezes into [...] rhinitis Assessment & Plan (09/11/2024 11:25 AM DERMATOLOGY PHYSICIAN): Nasal saline spray (Simply saline, Little Remedies, [place], [place]) 2 second sprays or 2 squeezes into [...] scholarships for water exercise classes across the [facility] and you may want to investigate this [...] syndrome. Another option is referral to the [facility]. If you are interested I [...] trained in mental health (such as a professor of social work or counselor) Should I take medicines? Your [...] earliest convenience Body mass index 40.0-44.9, adult ([facility]) 03/23 Cellulitis of right leg 03/16/2024 Overview (03/16/2024): Resolved with residual hyperpigmentation Diffuse lymphadenopathy 03/16/2024 Overview (03/16/2024): Patient reports occasional bilateral axillary lymphadenopathy, periportal lymphadenopathy. No localizing symptoms although reports abdominal pain and diarrhea. She also has night sweats, fatigue. No fevers.chills/weight loss. Patient is from [place], has a cat at home who scratches. [...] (12/23/2022): Added automatically from request for surgery [id number] Female pelvic pain 12/23/2022 Overview (12/23/2022): Added automatically from request for surgery [id number] Assessment & Plan (04/02/2024 12:44 PM CDT): [...] year. Assessment & Plan (12/02/2021 11:29 AM DERMATOLOGY PHYSICIAN): Thyroid ultrasound on 10/25/21 Right thyroid nodule [...] 10/23/2021 Assessment & Plan (09/11/2024 11:25 AM DERMATOLOGY PHYSICIAN): Nasal saline spray (Simply saline, Little Remedies, [place], [place]) 2 second sprays or 2 squeezes into [...] 04/22/2021 Assessment & Plan (12/02/2021 11:30 AM DERMATOLOGY PHYSICIAN): Chronic affecting upper lip and abdomen, more [...] her to make an appt with her practice managers. Assessment & Plan (12/02/2021 11:31 AM DERMATOLOGY PHYSICIAN): History of PCOS Obesity Oligomenorrhea and hirsutism [...] Encounters Date Type Department Care Team Description 07/10/2025 10:03 PM CDT - 07/11/2025 2:06 AM CDT Emergency [facility] Emergency Department [address] [place] [address] Lidia Burnham MD Acute nonintractable headache, unspecified headache type (Primary Dx); Upper respiratory tract infection, unspecified type; Tick bite of left upper arm, initial encounter Discharge Disposition: Discharge to home or self care 06/28/2025 Telephone [facility] Medicine Obstetrics and Gynecology [address] [place] [address] Eric Fuentes 06/21/2025 Telephone [facility] Medicine Obstetrics and Gynecology [address] [place] [address] Eric Fuentes 06/18/[address] [facility] [address] [place] [phone] Adelita Metzger NP Endometriosis (Primary Dx); PCOS (polycystic ovarian syndrome); Pelvic and perineal pain 06/13/2025 Results Follow-Up [address] [facility] [address] [place] [phone] Adelita Metzger NP US Pelvis W Endovaginal 06/11/[address] [facility] [address] [place] [phone] Adelita Metzger NP Pelvis US result 05/24/2025 3:[address] Procedure [address] [facility] [address] [place] [phone] Pelvic and perineal pain; Menometrorrhagia 05/23/[address] [place] [address] [address] [place] [address] Adelita Metzger, MEDICAL HEALTH RESEARCHER from Last 3 Months Immunizations Immunization Administration [...] Anxiety and depression PCOS (polycystic ovarian syndrome) 2012 with amenorrhea, hirsutism Hypothyroidism 2012 borderline GERD (gastroesophageal reflux disease) Hyperlipidemia Sleep apnea 2020 Tinnitus 10-08-2021 Nausea and vomiting 12/15/2023 Hypertension Arthritis Nausea without vomiting 12/15/2023 Family History Medical History Relation Name Comments Diabetes Father Valentino Carroll Hearing loss Father Valentino Carroll Heart disease Father Valentino Carroll Hypertension Father Valentino Carroll Stroke Maternal Grandfather Harry [place] Hypertension Mother Mother Thyroid disease Mother Mother Diabetes Paternal Grandfather [place] Diabetes Paternal Grandmother Anais [place] Relation Name Status Comments Father Valentino Carroll Alive Maternal Grandfather Harry [place] Mother Mother Alive Paternal Grandfather [place] Paternal Grandmother Anais [place] Social History Tobacco Use Types Packs/Day Years [...] making you feel afraid or unsafe? 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 Not on file Not on file Obstetrics History Para Term AB IAB SAB Ectopic Multiple Livin g Live Births 1 1 1 0 0 0 0 0 0 1 1 Date Outcome GA Total Labor Labor/2nd/3rd Weight Sex Type Anes PTL Dahiana A1 A5 Name Clin 2007 Term Vag-Spo nt Last Filed Vital Signs Vital Sign Reading Time Taken Comments Blood Pressure 134/94 07/11/2025 1:30 AM CDT Pulse 54 07/11/2025 1:30 AM CDT Temperature 36.1 C (97 F) 07/10/2025 9:12 PM CDT Respiratory Rate 18 07/10/2025 9:12 PM CDT Oxygen Saturation 97% 07/11/2025 1:30 AM CDT Inhaled Oxygen Concentration - - Weight 102.1 kg (225 lb) 07/10/2025 9:12 PM CDT Height 165.1 cm (5' 5) 07/10/2025 9:12 PM CDT Body Mass Index 37.44 07/10/2025 9:12 PM CDT Plan of Treatment Health Maintenance Due Date Last Done Comments Varicella Vaccines (1 of 2 - 13+ 2-dose series) 1999 Pneumococcal vaccine <65 (1 of 2 - PCV) 2005 HPV Vaccines (1 - 3-dose SCD M series) 2013 Depression Screening 08/10/2023 08/10/2022, 05/19/20 Cervical Cancer Screening 01/10/20252023, 11/30/2022, 12/17/2016, Additional history exists Regular Well Visit/Exam 18-64 01/10/2025, 11/30/2022, 05/19/2022 Covid-19 Vaccine (3 - 2024-2 6 season) 2025 02/27/2021, 01/30/2021 Influenza Vaccine (#1) 2025 , 07/30/2021, 08/10/2020, Additional history exists DTaP/Tdap/Td Vaccine (8 - Td or Tdap) 01/18/2032 01/17/2022, 01/17/2022, 06/09/2001, Additional history exists Hepatitis C Screening Completed 03/15/2024 Medical Devices Implanted Type Area Sales Ambassador Device Identifier Shelf Expiration Date Model / Serial / Lot [employer] Angio-Seal Vip 6fr Closere Device [id number] - [id number] Implanted:Qty: 1 on 08/03/2023 by Zita Jones MD at [facility] [employer] 02/06/2024 [id number] / / [id number] Procedures Procedure Name Priority Date/Time Associated Diagnosis Comments POCT HCG, URINE Routine 07/11/2025 12:19 AM CDT POCT GLUCOSE DEVICE Routine 07/11/2025 1 2:17 AM CDT EGFR STAT 07/11/2025 12:06 AM CDT DIFFERENTIAL AUTO STAT 07/11/2025 12: 06 AM CDT TROPONIN T HIGH-SENSITIVITY SERIES (BASELINE, 2HR, 4HR, 6HR) STAT 07/11/2025 12:06 AM CDT TSH STAT 07/11/2025 12:06 AM CDT COMPREHENSIVE METABOLIC PANEL STAT 07/11/2025 12:06 AM CDT CBC WITH AUTO DIFFERENTIAL STAT 07/11/2025 12:06 AM CDT URINALYSIS AND REFLEX TO MICROSCOPIC AND CULTURE STAT 07/11/2025 12:06 AM CDT BORRELIA BURGDORFERI ANTIBODY SCREEN STAT 07/11/2025 12:06 AM CDT INFLUENZA A/B, RSV, AND COVID-19 PCR STAT 07/11/2025 12:06 AM CDT STREPTOCOCCUS GROUP A PCR STAT 07/11/2025 12:06 AM CDT ECG 12-LEAD STAT 07/10/2025 9:16 PM CDT US PELVIS W ENDOVAGINAL Routine 05/24/2025 3:12 PM CDT Pelvic and perineal pain Menometrorrhagia HEPATITIS PANEL, ACUTE Routine 03/15/2024 11:12 AM CDT Diffuse lymphadenopathy PAP, REFLEX HPV Routine 01/11/2024 11:14 AM DERMATOLOGY PHYSICIAN Well woman exam from Last 3 Months or Most Recently Relevant to Health Maintenance Results * POCT hCG, urine (07/11/2025 12:19 AM CDT) HCG, ur, POC Negative Negative Lot Number [id number] QC Backgroud Clear Acceptable QC Control Line Acceptable Urine 07/11/2025 12:1 9 AM CDT Lidia Burnham MD POINT OF CARE TEST ORDERABLES Fi nal Result * POCT glucose (07/11/2025 12:17 AM CDT) Glucose, POC 90 70 - 199 mg/dL Blood 07/11/2025 12:1 7 AM CDT 07/11/2025 12:17 AM CDT Lidia Burnham MD LAB POCT ORDERABLES - DEVICE Fin al Result Performing Organization Address [facility] Co de Phone Number ANGELIQUE Gonzalez[facility]) [address] [place] [address] * Troponin T high-sensitivity series (baseline, 2hr, 4hr, 6hr) (07/11/2025 12:06 AM CDT) Trop T hs <6 <=14 ng/L [facility] ([facility]) Comment: Interpretive Data For further hscTnT resources including the diagnostic algorithm and an aid in interpretation, copy and paste this link: https://nrl.testcatalog.org/show/hsTrop Current Interpretive Data last revised 2020. Blood 07/11/2025 12:0 6 AM CDT 07/11/2025 12:19 AM CDT Lidia Burnham MD LAB BLOOD ORDERABLES Final Resul t Performing Organization Address [facility]/ZIP Co de Phone Number ANGELIQUE VIERA ([facility]) [address] [place] [address] * Influenza A/B, RSV, and COVID-19 PCR Nasopharyngeal (07/11/2025 12:06 AM CDT) Pathologist [facility] COVID-19 RNA Negative Negative Influenza A RNA Negative Negative [facility] ([facility]) Influenza B RNA Negative Negative [facility] ([facility] RSV RNA Negative Negative [facility] ([facility]) Comment: Interpretive data: Testing performed by [facility]. This test is performed using the [employer] Xpert Xpress CoV-2/Flu/RSV plus assay. This is a multiplex, real- time reverse transcriptase PCR assay intended for the qualitative detection of nucleic acid from SARS-CoV-2, influenza A, influenza B, and respiratory syncytial virus. This assay has been cleared by the [place] Food and Drug administration. The performance characteristics have been verified by the [facility]. Results must be considered in the clinical context, and a negative result does not rule out infection. Interpretive Data last revised 2023 Nasopharyngeal 07/11/2025 12 :06 AM CDT 07/11/2025 12:19 AM CDT Narrative ANGELIQUE AYLIN ([facility]) - 07/11/2025 1:22 AM CDT Is the Patient experiencing symptoms consistent with COVID?->Yes Lidia Burnham MD LAB MICROBIOLOGY - GENERAL ORDER ALONSO Final Result Performing Organization Address City/[facility] Co de Phone Number ANGELIQUE VIERA ([facility]) [address] [place] [address] * Streptococcus Group A PCR Throat (07/11/2025 12:06 AM CDT) Pathologist [facility] Strep A DNA Not Detected Not Detected Comment: This test is performed using the [employer] Xpert Group A Streptococcal Assay. This is a qualitative, real-time PCR assay that detects Group A Strep using throat specimens from patients suspected of having streptococcal pharyngitis. This assay does not detect other beta-hemolytic streptococci including Group C or Group G. Group C and G have been associated with pharyngitis and, occasionally, acute nephritis but do not cause rheumatic fever. If suspected, order Throat Culture, Routine. This assay has been cleared by the US Food and Drug Administration, and its performance characteristics have been verified by the performing laboratory. Throat 07/11/2025 12:0 6 AM CDT 07/11/2025 12:19 AM CDT Lidia Burnham MD LAB MICROBIOLOGY - GENERAL ORDER ALONSO Final Result Performing Organization Address City/[facility] Co de Phone Number ANGELIQUE VIERA ([facility]) [address] [place] [address] * eGFR (07/11/2025 12:06 AM CDT) eGFR >90 >=60 mL/min/1. 73 m2 Comment: Interpretive Data Reference Interval Normal >/= 90 mL/min/1.73m2 Mildly decreased* 60 - 89 mL/min/1.73m2 Mildly to moderately decreased 45 - 59 mL/min/1.73m2 Moderately to severely decreased 30 - 44 mL/min/1.73m2 Severely decreased 15 - 29 mL/min/1.73m2 Kidney Failure < 15 mL/min/1.73m2 *Relative to young adult level Estimated glomerular filtration rate is determined by the 2020 CKD-EPI equation recommended by the National Kidney Foundation (A Unifying Approach to GFR Estimation: Recommendations of the NKF-ASK Task Force on Reassessing the Inclusion of Race in Diagnosing Kidney Disease, JASN 2020). The CKD-EPI equation should not be used for patients with unstable renal function and has not been validated in children and those over 70. Current interpretive data was last reviewed 2021. Blood 07/11/2025 12:0 6 AM CDT 07/11/2025 12:19 AM CDT us Lidia Burnham MD LAB BLOOD ORDERABLES Final Resul t [facility] ([facility]) [address] [facility] Department of Laboratories [place], [place] [id number] * Differential, auto (07/11/2025 12:06 AM CDT) Neutrophil abs 5.43 1.50 - 6.50 K/cumm Imm gran abs 0.02 0.00 - 0.10 K/cumm [facility] (LANE) Lymphocyte abs 2.53 0.80 - 3.30 K/cumm [facility] (LANE) Monocyte abs 0.48 0.20 - 0.80 K/cumm [facility] (LANE) Eosinophil abs 0.16 0.00 - 0.50 K/cumm [facility] (LANE) Basophil abs 0.03 0.00 - 0.10 K/cumm [facility] (LANE) Neutrophil pct 63.0 % [facility] (LANE) Comment: Interpretive Data Percent cell count reference ranges are not reported, since discordance with absolute values may lead to misinterpretation of CBC data. Current Interpretive Data was last revised on 2018. Imm gran pct 0.2 % [facility] (LANE) Comment: Interpretive Data Percent cell count reference ranges are not reported, since discordance with absolute values may lead to misinterpretation of CBC data. Current Interpretive Data was last revised on 2018. Lymphocyte pct 29.2 % [facility] (LANE) Comment: Interpretive Data Percent cell count reference ranges are not reported, since discordance with absolute values may lead to misinterpretation of CBC data. Current Interpretive Data was last revised on 2018. Monocyte pct 5.5 % [facility] (LANE) Comment: Interpretive Data Percent cell count reference ranges are not reported, since discordance with absolute values may lead to misinterpretation of CBC data. Current Interpretive Data was last revised on 2018. Eosinophil pct 1.8 % [facility] (L[facility]) Comment: Interpretive Data Percent cell count reference ranges are not reported, since discordance with absolute values may lead to misinterpretation of CBC data. Current Interpretive Data was last revised on 2018. Basophil pct 0.3 % [facility] (LANE) Comment: Interpretive Data Percent cell count reference ranges are not reported, since discordance with absolute values may lead to misinterpretation of CBC data. Current Interpretive Data was last revised on 2018. Blood 07/11/2025 12:0 6 AM CDT 07/11/2025 12:19 AM CDT us Lidia Burnham MD LAB BLOOD ORDERABLES Final Resul t ANGELIQUE AYLIN (LANE) [address] [facility] [place] [address] * Lyme Disease Antibody with Reflex Immunoblot Blood (07/11/2025 12:06 AM CDT) [facility] Lyme Ab Negative Negative [place] [facility] Comment: No evidence of antibodies to B. burgdorferi detected. False negative results may occur in recently infected patients (<=2 weeks) due to low or undetectable antibody levels to B. burgdorferi. If recent exposure is suspected, a second sample should be collected and tested in 2-4 weeks. Test Performed by: [facility] [address] [place] [address] [employer]: Zechariah Maldonado Ph.D.; CLIA# [id number] Blood 07/11/2025 12:0 6 AM CDT 07/11/2025 12:19 AM CDT us Lidia Burnham MD LAB MICROBIOLOGY - GENERAL ORDER ALONSO Final Result [facility] (LANE) [address] [facility] [place] [address] [place] [facility] * Urinalysis reflex to microscopic and culture Urine, clean voided (07/11/2025 12:06 AM CDT) Color, ur Straw Yellow Clarity, ur Clear Clear [facility] (LANE) Specific gravity, ur 1.003 1.003 - 1.030 [facility] (L[facility]) pH, urine 6.5 [facility] (LANE) Comment: Interpretive Data U rine pH is affected by diet, medications, systemic acid-base disturbances, and renal tubular function. pH may affect urinary stone formation. For example, urine pH below 6.0 may help reduce the tendency for calcium phosphate stones and pH greater than 6.0 may reduce the tendency for uric acid stone formation. Source: [facility] Current Interpretive Data was last revised on 2017 Protein, ur ql Negative Negative [facility] (L[facility]) Glucose, ur ql Negative Negative [facility] ([facility]) Ketones, ur Negative Negative [facility] (LANE) Bilirubin, ur Negative Negative [facility] (LANE) Blood, ur Negative Negative [facility] (LANE) Urobilinogen, ur <2.0 <2.0 mg/dL [facility] (LANE) Nitrite, ur Negative Negative [facility] (LANE) Leukocyte esterase, ur Negative Negative [facility] (LANE) UA reflex comment Reflex conditions for microscopic UA and culture not met. [facility] (L[facility]) Urine, clean voided 07/11/2025 12:06 AM CDT 07/11/2025 12:19 AM CDT us Lidia Burnham MD LAB MICROBIOLOGY - GENERAL ORDER ALONSO Final Result ANGELIQUE VIERA (LANE) [address] [facility] [employer] [address] * CBC with auto differential (07/11/2025 12:06 AM CDT) WBC 8.65 3.80 - 9.90 K/cumm Hgb 14.0 11.9 - 15.5 g/dL [facility] ([facility]) Hct 42.6 35.6 - 45.5 % [facility] (L[facility]) Plt 282 150 - 400 K/cumm [facility] (L[facility]) MPV 9.3 9.1 - 12.3 fL [facility] (L[facility]) RBC 4.61 3.90 - 5.20 M/cumm [facility] (L[facility]) MCV 92.4 81.3 - 96.4 fL [facility] (L[facility]) MCH 30.4 27.1 - 33.3 pg [facility] (L[facility]) MCHC 32.9 32.3 - 35.7 g/dL [facility] (L[facility]) RDW CV 13.2 11.1 - 14.9 % [facility] (L[facility]) RDW SD 44.6 35.7 - 48.1 fL [facility] (L[facility]) NRBC abs 0.00 0.00 - 0.01 K/cumm [facility] (L[facility]) Blood 07/11/2025 12:0 6 AM CDT 07/11/2025 12:19 AM CDT us Lidia Burnham MD LAB BLOOD ORDERABLES Final Resul t ANGELIQUE VIERA (LANE) [address] [facility] [place] [address] * TSH (07/11/2025 12:06 AM CDT) Thyroid Stimulating Hormone 0.80 0.30 - 4.20 mcIUnit/mL [facility] (L[facility]) Blood 07/11/2025 12:0 6 AM CDT 07/11/2025 12:19 AM CDT us Lidia Burnham MD LAB BLOOD ORDERABLES Final Resul t [facility] (LANE) [address] [facility] [place] [address] * Comprehensive metabolic panel (07/11/2025 12:06 AM CDT) Sodium 138 135 - 145 mmol/L [facility] (L[facility]) Potassium, pl 4.0 3.3 - 4.9 mmol/L [facility] (LANE) Chloride 100 97 - 110 mmol/L [facility] (L[facility]) CO2 26 22 - 32 mmol/L [facility] (L[facility]) Anion gap 12 2 - 15 mmol/L [facility] (L[facility]) BUN 12 6 - 25 mg/dL [facility] (L[facility]) Creatinine 0.63 0.60 - 1.10 mg/dL [facility] (L[facility]) Glucose 79 70 - 199 mg/dL [facility] (L[facility]) Comment: Interpretive Data Fasting glucose >/= 126 mg/dl is diagnostic for diabetes. Fasting is defined as no caloric intake for at least 8 hours. Fasting glucose between 100 mg/dl to 125 mg/dl is diagnostic of prediabetes. In a patient with classic symptoms of hyperglycemia or hyperglycemic crisis, a random glucose >/= 200 mg/dl is diagnostic for diabetes. In the absence of unequivocal hyperglycemia, results should be confirmed by repeat testing. The classification and Diagnosis of Diabetes Diabetes Care 202; 46: S19-S40. Current interpretive data was last revised 2022. Calcium 9.7 8.5 - 10.3 mg/dL [facility] (LANE) Bilirubin, total 0.4 0.1 - 1.2 mg/dL [facility] (LANE) Protein, pl 7.4 6.5 - 8.5 g/dL [facility] (LANE) Albumin 4.2 3.5 - 5.0 g/dL [facility] (LANE) Alk phos 61 40 - 130 Units/L [facility] (L[facility]) ALT 17 7 - 45 Units/L [facility] (L[facility]) AST 20 10 - 45 Units/L [facility] (LANE) Blood 07/11/2025 12:0 6 AM CDT 07/11/2025 12:19 AM CDT Lidia Burnham MD LAB BLOOD ORDERABLES Final Resul t Performing Organization Address City/[facility]/ZIP Co de Phone Number ANGELIQUE VIERA (LANE) [address] [facility] [place] [address] * ECG 12 lead (07/10/2025 9:16 PM CDT) 07/10/2025 9:16 PM CDT Narrative [facility] - 07/11/2025 7:37 AM CDT Vent Rate: 74 bpm RR Interval: 805 msec GA Interval: 151 msec QRS Duration: 93 msec QT Interval: 356 msec QTC Interval: 383 msec P-R-T [place]: -4 - 6 - 16 degrees IMPRESSION: SINUS RHYTHM WITH SINUS ARRHYTHMIA POSSIBLE LEFT ATRIAL ENLARGEMENT [-0.1mV P WAVE IN V1/V2] BORDERLINE ECG NO CHANGE FROM PREVIOUS TRACING NOTED Electronically Signed By: Miller Frank MD Lidia Burnham MD ECG ORDERABLES Final Result Performing Organization Address [facility] Co de Phone Number [facility] [employer] [facility] * US Pelvis W Endovaginal (05/24/2025 3:12 [...] cm simple physiologic appearingcyst. us Adelita Metzger MEDICAL HEALTH RESEARCHER IMG US PROCEDURES Final Result * Hepatitis panel, acute Blood (03/15/2024 11:12 AM CDT) Hep A IgM Nonreactive Nonreactive Hep B core IgM Nonreactive Nonreactive [facility] Hep C Ab Nonreactive Nonreactive [facility] Comment:Antibodies to HCV no t detected. Does NOT exclude the possibility of recent exposure to HCV. Current interpretive data was last revised on 22 HepBsAg Nonreactive Nonreactive [facility] Blood 03/15/2024 11:1 2 AM CDT 03/15/2024 2:50 PM CDT Leah Guzman MD LAB MICROBIOLOGY - GENERAL ORDERABLES Final Result [facility] [place] [address] * Pap, reflex HPV (01/11/2024 11:14 AM DERMATOLOGY PHYSICIAN) CLINICAL INFORMATION: Sabino Mondragon Comment:None given LMP Sabino Mondragon Comment:01-07-24 Previous Pap [facility] Mondragon Comment:None given Prev. Bx Sabino Mondragon Comment:None given SOURCE: Sabino Mondragon Comment:Cervix, Endocervix Pap, specimen adequacy Sabino Mondragon Comment: Satisfactory for evaluation. Endocervical/transformation zone component present. HPV interp Sabino Mondragon Comment: Cytology Results: Negative for intraepithelial lesion or malignancy. COMMENTS Sabino Mondragon Comment: This Pap test has been evaluated with computer assisted technology. Mold Machine Operator Mikhail Kumar Comment: PCM, CT(ASCP) CT Screening Location: [place] [address] [address] [place] [id number] Comment [employer] Mond[employer]agon Comment: EXPLANATORY NOTE: The Pap is [...] information. Thin prep 01/11/2024 11:1 4 AM DERMATOLOGY PHYSICIAN 01/12/2024 3:24 AM DERMATOLOGY PHYSICIAN us Tate Amador MD LAB CYTOLOGY ORDERABLES Fi nal Result [facility] [address] [address] [place] [phone] from Last 3 Months or Most Recently [...] contact Infection Prevention. 06/16/2024 06/16/2024 [place] [address] [facility] CHOICE PLUS [facility] CHOICE PLUS Advance Directives For more information, please contact: [phone] * Full Code (Latest Code Status on [...] 10:04 AM 12/21/2023 4:45 PM Care Teams Health Associate Relationship Specialty Start Date End Date No, Physician PCP - General 03/12/25 Tate Amador MD [address] [place] [address] Microbiology Supervisor Obstetrics and Gynecology 03/17/23
--- OUTSIDE RECORDS SUMMARY | 2025-07-24 19:38 | XMS_ITS | Clinical Summary ---
Author Organization [facility] Address [address] [place] [address] Phone Care Team Providers Care Lead Database Administrator Name Role Phone Carlin Ceballos MD Unavailable Magdy Guzman MD Unavailable Maik John APRN, CARPET JACK Unavailable Lidia Mar APRN, CLINICAL REVIEWER Unavailable +- [phone] Oscar Ramírez MD Unavailable [phone] Provider, None Primary Care Provider Unavailabl e Allergies No known active allergies Medications ergocalciferol (VITAMIN D) 24018 UNIT Capsule Take 1 Capsule by mouth [...] 02/24/2024 Polycystic ovarian syndrome 02/24/2024 Overview (08/02/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): 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 Essential hypertension, benign 07/21/2023 Gastroesophageal reflux disease [...] She has familial hair loss / alopecia Franklin's syndrome was excluded with 1 mg Dexamethasone [...] pain 11/30/2021 08/24/2023 Ear ringing sound, left 11/11/202108/08 Lymphocytosis 11/11/2021 02/24/2024 Intractable vomiting 10/27/2021 023 RUQ pain 10/27/2021 08/24/2023 Tinnitus of both ears 10/23/20212023 Neck pain 10/23/2021 02/24/2024 Dysphagia 10/23/2021 08/24/2023 Throat burning 10/23/2021 08/24/2023 Jaw pain 10/08/2021 02/24/2024 Loose stools 10/08/2021 08/24/2023 Skin lesion 10/08/2021 08/24/2023 Neck swelling 10/08/2021 08/24/2023 Anemia, normocytic normochromic 10/08/2021 02/24/2024 Night sweats 02/24/2024 Encounters Date Type Department Care Team Description 07/10/2025 2:56 PM CDT - 07/10/2025 4:51 PM CDT Emergency [facility] Emergency [address] [place] [address] Discharge Disposition: LWBS 07/10/2025 Travel from Last 3 Months Immunizations Immunization Administration Dates Next Due Covid-19, [...] Comments Anxiety disorder Brother Diabetes Father Valentino Carroll High Cholesterol Father Valentino Carroll Hypertension Father Valentino Carroll Aneurysm Maternal Grandfather Emphysema Maternal Uncle Lung Cancer Maternal Uncle smoker Anxiety disorder Mother Gely Carroll High Cholesterol Mother Gely Carroll Hypertension Mother Gely Carroll Cancer Paternal Grandfather [place] Sk in cancer Congestive Heart Failure Paternal Grandfather [place] am[place]lain Heart Attack Paternal Grandfather [place] Hypertension Paternal Grandfather [place] Skin Cancer Paternal Grandfather [place] Diabetes Paternal Grandmother [place] High Cholesterol Paternal Grandmother [place] Chamberlai n No Known Problems Son (16) Relation Name Status Comments Brother Alive Father Valentino Carroll Alive Maternal Grandfather Maternal Grandmother Maternal Uncle Mother Gely Carroll Alive Paternal Grandfather [place] Paternal Grandmother [place] Alive Son (16) Alive Social History Tobacco Use Types Packs/Day Years Used Date Smoking Tobacco: Never Passive Smoke Exposure: Never Smokeless Tobacco: Never Tobacco Cessation:Counseling Given: Not Answered Alcohol Use Standard Drinks/Week Comments No 0 (1 standard drink = 0.6 oz pur e alcohol) [facility] Utilities Answer Date Recorded In the past 12 months has [employer], gas, oil, or water [employer] [place] threatened to shut off services in your [...] week 04/18/2024 How often do you attend formerly [facility] or episcopalian services? More than 4 times per year 04/18/2024 Do you belong to any clubs o r organizations such as caodaism groups, unions, fraternal or athletic groups, or [...] Total Score - Questions 1-9 0 02/06 [facility] Occupat ional [facility] - Occupational Stress Questionnaire Answer Date Recorded [...] place to sleep or slept in a jail (including now)? No 01/25/2024 Housing Stability Vital Sign Answer Murray e Recorded In the last 12 months, was t here a time when you were not able to pay the mortgage or rent on time? No 04/18/2024 In the past 12 months, how m any times have you moved where you were living? 0 04/18/2024 At any time in the past 12 m [place], were you homeless or living in a jail (including now)? No 04/18/2024 Education Answer Date Recorded What is the highest level of school you have completed or the highest degree you have received? 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 Legal Sex Female 7:58 PM CDT Gender Identity Female 11/20/2023 2:58 AM STEM TEACHER Sexual Orientation Not on file Last Filed Vital Signs Vital Sign Reading Time Taken Comments Blood Pressure 152/92 07/10/2025 3:14 PM CDT Pulse 71 07/10/2025 3:14 PM CDT Temperature 36.3 C (97.3 F) 07/10/2025 3:14 PM CDT Respiratory Rate 15 07/10/2025 3:14 PM CDT Oxygen Saturation 100% 07/10/2025 3:14 PM CDT Inhaled Oxygen Concentration - - Weight 107.6 kg (237 lb 3.2 oz) 11/28/2024 3:30 PM STEM TEACHER Height 165.1 cm (5' 5) 11/28/2024 3:30 PM STEM TEACHER Body Mass Index 39.47 11/28/2024 3:30 PM STEM TEACHER Plan of Treatment Health Maintenance Due Date Last Done Comments Human Papillomavirus (HPV) Immunization (1 - 3-dose SCDM series) 2013 Pap Smear 10/28/2024 10/28/2021, 100 03/2020, 08/10/2019 Influenza Immunization (#1) 07/09/20252 12/2020, 08/10/2020, 11/15/2014 SARS-COV-2 Immunization (3 season) 2025 02/27/2021, 01/30/2021 Cervical Cancer Screening (CCS) 11/30/2027 HPV/Cotest 11/30/2027 [...] Author Address worry Anxiety No Aleida Pham, [facility] Note: Goal/Objective: Increase ability to cope with anxiety and worry about physical health. Anticipated Time Frame for Goal Completion: 6 months Goal Reviewed with: patient Readiness to change: Thinking about making a change Department associated with goal: [facility] Steps to achieve goal: [...] 0.32 <1 S/CO 03/11/2024 12:17 AM CDT [facility] Comment: Signal/Cutoff ratio < 0.79 is Nondetected Signal/Cutoff ratio 0.80-0.99 is Grayzone Signal/Cutoff ratio > 0.99 is Detected Supplemental assays are recommended if signal/cutoff ratio is >/=1.00. Signal/cutoff ratio result >/= 5.00 is 97% predictive of positivity for recombinant immunoblot assay (RIBA) and will be reported to the [place] Department of Public Health as required. 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 Care Teams Lead Database Administrator Relationship Specialty Start Date End Date Provider, None [place] PCP - General 10/03/24 Carlin Ceballos MD [address] [address] Consulting Physician General Surgery 08/08/21 Magdy Guzman MD [address] [address] Consulting Physician Endocrinology 06/25/23 Maik John APRN, CARPET JACK [address] [place] [address] Nurse Practitioner Advanced Practice Nurse 12/22/22 Lidia Mar APRN, CLINICAL REVIEWER [address] [place] [address] Nurse Practitioner Advanced Practice Nurse 08/18/22 Oscar Ramírez MD [address] [place] [address] Consulting Physician Medical Oncology 03/27/24
--- NOTE | 2025-07-24 19:48 | ED.URI ---
HPI - URI/Sore Throat General Chief Complaint: Upper Respiratory Infection Stated Complaint: ears/throat/sweatting Time Seen by Provider: 07/24/25 19:43 Source: patient, RN notes reviewed and old records reviewed Mode of arrival: ambulatory Limitations: no limitations History of Present Illness HPI Narrative: 40-year-old female who presents to [facility] with complaints of right ear pain, sore throat, glands in neck hurt,, headache, and having intermittent episodes of sweating for the past 2 weeks. Patient reports that she has been taking Tylenol and Ibuprofen for her symptoms. Patient reports that she was seen here 2 weeks ago and her symptoms have not improved. Patient has elevated blood pressure and has not taken any blood pressure medication since December and has not taken any cholesterol medications either. 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 Patient reports that she needs to find new PCP with information given. MD elicited complaint: sore throat and other (ear pain, glands in neck hurt, headache, episodes of sweating) Onset (ago): week(s) (a little over 2 weeks) Consistency: progressively worsening Pain scale (0-10): 8 Able to tolerate fluids by mouth: Yes Treatments prior to arrival: acetaminophen and ibuprofen Related Data Allergies Allergy/AdvReac Type Severity Reaction Status Date / Time poison jennifer extract Allergy Unknown Rash Verified 07/24/25 19:51 cat dander Allergy Watery Eye Verified 07/24/25 19:51 Review of Systems Review of Systems: CONSTITUTIONAL: reports malaise, chills, reports sweats, no known fever. EYES: Denies visual changes, redness, or discharge. ENT: Reports rhinorrhea, congestion, sinus pain,right otalgia and sore throat. CARDIOVASCULAR: Denies chest pain, palpitations, or edema. RESPIRATORY: Reports no cough.? Denies dyspnea. GASTROINTESTINAL: Denies abdominal pain, nausea, vomiting, diarrhea SKIN: Denies rash or itching. MUSCULOSKELETAL: Denies myalgia. NEUROLOGIC: reports headache. All systems reviewed & are unremarkable except as noted in HPI and below PMFSH Past Medical History Medical History Anxiety PCOS (polycystic ovarian syndrome) Hypertension Hyperlipidemia Surgical History Surgical History History of cholecystectomy Social History Social History Smoking status: Never smoker Alcohol intake: unknown Substance use: never Living arrangements: with family Gender identity (if verbalized by the patient): Female Comments At time of signature, agree with nursing past medical, surgical, social and family history. There is no relevant family history pertinent to the presenting complaint Exam Narrative: GENERAL: Well-appearing, well-nourished, and in no acute distress. HEAD: Normocephalic EYES: PERRLA, conjunctivae clear ENT: Nares clear, turbinates edematous and erythematous, clear discharge, sinus pressure and headache. Mucous membranes moist. TM pearly pat with dull light reflex bilaterally; no tragal tenderness. Oropharynx erythematous without lesions. Tonsils red enlarged and without exudate, no drooling, no hoarseness, no trismus, uvula midline.post nasal drainage NECK: Supple. lymphadenopathy CHEST: Clear to auscultation, breath sounds equal. No wheezing, rhonchi, rales, or stridor. No respiratory distress, speaks in full sentences.[id number]% on room air HEART: Regular rate and rhythm. No murmur heard. SKIN: Warm, dry, no rash. NEURO: Alert and oriented x3. PSYCH: Normal mood and affect, anxious Course Course Emergency Course: Patient is aware of diagnosis, understands and agrees to treatment plan.? Anticipatory guidance given.? Patient agrees to follow-up as directed and is aware of reasons to seek care at the emergency department. Portions of this record may have been created with voice recognition software Level of Care: Express Care Visit Vital Signs Vital signs: Vital Signs Temperature 36.9 C 07/24/25 19:38 Pulse Rate 60 07/24/25 19:38 Respiratory Rate 20 07/24/25 19:38 Blood Pressure 145/96 H 07/24/25 19:38 Pulse Oximetry 100 07/24/25 19:38 Oxygen Delivery Room Air 07/24/25 19:38 Temperature 36.9 C 07/24/25 19:38 Pulse Rate 60 07/24/25 19:38 Respiratory Rate 20 07/24/25 19:38 Blood Pressure 145/96 H 07/24/25 19:38 Pulse Oximetry 100 07/24/25 19:38 Oxygen Delivery Room Air 07/24/25 19:38 Reviewed MDM - URI/Sore Throat MDM Narrative Medical decision making narrative: Differential diagnosis considered: Mon virus, strep pharyngitis, allergic rhinitis, upper respiratory tract infection, sinusitis, rhinosinusitis, nasopharyngitis. viral pharyngitis, otitis media, otitis externa, pneumonia, bronchitis, viral cough syndrome, viral syndrome, and influenza.? Exam findings show no acute concerns or changes; patient is non-toxic appearing and is in no distress.? Patient is appropriate for outpatient treatment and follow-up. Differential Diagnosis Differential diagnosis: Likely upper respiratory infection, sinusitis, pharyngitis and other (otalgia) Medical Records Attestation: I reviewed the patient's medical records. Lab Data Attestation: I reviewed the patient's lab results. Critical Care Time Critical Care Time Critical Care Time: No Discharge Plan Discharge Clinical Impression: Sinusitis Qualifiers: Sinusitis location: pansinusitis Chronicity: acute Recurrence: not specified as recurrent Qualified Code(s): J01.40 - Acute pansinusitis, unspecified Patient Disposition: Home Condition: Stable Instructions: Antibiotic Form, Sinusitis (ED) Additional Instructions: Increase fluids especially juices and water [id number] cough and cold medicine of your choice for your symptoms Tylenol or ibuprofen for any fever or pain Zyrtec Claritin daily along with Coricidin deogestant heat to the face 20-30 minutes 4-6 times a day for pain Salt water gargles, throat lozenges or throat sprays as desired Antibiotic as directed--finished the medication If your symptoms persist, change or worsen significantly before you can contact your personal physician then please, without delay, go to the emergency department for further evaluation. Follow-up with PCP in 7-10 days or sooner if needed Follow up with PCP soon in regards to your blood pressure which is elevated above threshold for referral. Blood pressure above 120/80 may indicate pre-hypertension. need to discuss medication with transformer mechanic in early part of August. Patient Language: [place] Prescriptions: New amoxicillin-pot clavulanate 875-125 mg tablet 1 tablet PO Q12H Qty: 20 0RF Rx Instructions: take with food take all doses of medication recommend taking either probiotic or eating Activa yogurt while taking Follow-up/Referrals: PHYSICIAN,PRESS HELPER [Primary Care Provider, Internal Medicine] Time of Disposition: 20:04 Quality Minesh Coma Scale Eyes: Open Verbal: Oriented and Alert Motor: Follows Commands [place] Coma Total Score: 15
== END 2025-07-24 20:07 | disposition home or self-care (01) ==
PROVIDERS: Emergency Provider Registered Nurse
DX: J01.40 Acute pansinusitis, unspecified (principal); I10 Essential (primary) hypertension; E78.5 Hyperlipidemia, unspecified; E28.2 Polycystic ovarian syndrome
CPT/HCPCS: 99213; G0463